=== PATIENT | male | born 1965 | race Caucasian/White ===

== ENCOUNTER 2020-05-21 10:03 | Outpatient (REF) | payer BC, SELFPAY ==
[2020-05-21 11:11] LABS: MANUAL DIFF FLAG NO
[2020-05-21 11:23] LABS: Basophils Percent Auto 0.5 % (0-2); Eosinophils Absolute Auto 0.2 X10*3/uL (0.0-0.4); Eosinophils Percent Auto 2.6 % (0-4); Hematocrit 43.8 % (42-52); Hemoglobin 14.8 g/dl (14.0-18.0); Imm Gran Abs Auto 0.05 X10*3/uL (0.00-0.03); Imm Gran Pct Auto 0.9 % (0.0-0.4); Lymphocytes Absolute Auto 1.6 X10*3/uL (1.2-4.9); Lymphocytes Percent Auto 26.8 % (20-40); Mean Corpuscular HGB Conc 33.8 g/dl (31.0-36.0); Mean Corpuscular Hemoglobin 32.3 pg (27.0-33.0); Mean Corpuscular Volume 95.6 fL (80-98); Monocytes Absolute Auto 0.6 X10*3/uL (0.1-1.2); Monocytes Percent Auto 10.8 % (2-11); Neutrophils Absolute Auto 3.4 X10*3/uL (2.0-8.3); Neutrophils Percent Auto 58.4 % (45-73); Platelet Count 189 X10*3/uL (160-400); Red Blood Count 4.58 X10*6/uL (4.60-5.80); White Blood Count 5.9 X10*3/uL (4.8-10.8)
[2020-05-21 11:44] LABS: Alanine Aminotransferase 42 U/L (0-40); Albumin Level 4.5 g/dL (3.5-5.0); Alkaline Phosphatase 77 U/L (39-117); Anion Gap 13 (12-20); Aspartate Amino Transferase 29 U/L (5-37); Bilirubin Total 0.3 mg/dL (0.0-1.0); Blood Urea Nitrogen 12 mg/dL (9-16); Calcium 9.8 mg/dL (8.4-10.2); Carbon Dioxide 28 mmol/L (22-29); Chloride 104 mmol/L (96-108); Cholesterol 228 mg/dL; Estimated Glomerular Filt Rate > 60; Glucose Fasting 83 mg/dL (60-99); HDL Cholesterol 45 mg/dL; LDL Cholesterol Calculated 141 mg/dl; Potassium 4.8 mmol/l (3.3-5.1); Sodium 140 mmol/L (135-145); Total Protein 7.2 g/dL (6.5-8.0); Triglycerides 214 mg/dL
== END 2020-05-21 10:04 | disposition home or self-care (01) ==
LOC: HO.LAB 10:03
PROVIDERS: Visit Provider Internal Medicine
DX: E78.00 Pure hypercholesterolemia, unspecified (principal)
CPT/HCPCS: 36415; 80053; 80061; 85025

== ENCOUNTER 2020-08-27 13:39 | Outpatient (REF) | payer BC, SELFPAY ==
--- NOTE | ~2020-08-27 | MR_ITS ---
EXAMINATION: MR LUMBAR SPINE WITHOUT CONTRAST CLINICAL INFORMATION: Chronic low back pain. No trauma. COMPARISON: Lumbar spine x-ray 01/19/2013. TECHNIQUE: MRI of the lumbar spine was obtained using routine sequences without contrast. FINDINGS: VERTEBRAL BODIES AND PARASPINAL STRUCTURES: Normal. There is normal lumbar lordosis. The vertebral heights and alignment is preserved normal. There are degenerative disc changes with loss of disc height at virtually all disc levels with preservation of the L4-L5 disc level. At T12-L1 disc level, there is mild disc bulge slightly more prominent in the right para midline region indenting the ventral thecal sac but without spinal canal stenosis. The neural foramina are patent bilaterally. L1-L2 disc level, there is mild diffuse bulge, more prominent in the right paramidline region. The neural foramina are patent bilaterally. At L2-L3 disc level, there is diffuse bulge without spinal stenosis. The neural foramina are mildly narrowed bilaterally. At L3-L4 disc level, there is a broad-based disc bulge with moderate-sized central disc herniation and inferior migration resulting in mayoiygg-fn-cjlsff canal stenosis. This results tortuosity and engorgement of the nerve roots and vessels cephalad. There is moderate bilateral narrowing of the neural foramina, slightly greater on the right from underlying moderate diffuse bulge and mild bilateral facet joint hypertrophy. At L4-L5 disc level, there is mild diffuse bulge flattening the ventral thecal sac. The neural foramina are mildly narrowed bilaterally. There is moderate bilateral facet joint hypertrophy. At L5-S1 disc level, there is minimal bulge without spinal canal stenosis. The neural foramina are mildly narrowed bilaterally. The bone marrow signal is normal. There are inferior endplate Schmorl's nodes L1 and T12 vertebrae. Conus medullaris terminates at L1 and appears normal in morphology. There are engorged vessels in the spinal canal superior to L3-L4 disc level. MR/MR lumbar spine wo con IMPRESSION: Broad-based diffuse bulge with moderate size central disc herniation and mild inferior migration resulting in xjemccuc-[id number] central canal stenosis at the L3-L4 disc level. There is moderate bilateral neural foraminal narrowing, greater on the right than the left. Degenerative disc bulges at the rest of the disc levels but no canal stenosis.
== END 2020-08-27 13:40 | disposition home or self-care (01) ==
LOC: HO.MRI 13:39
PROVIDERS: Visit Provider Internal Medicine
DX: M54.5 Low back pain (principal)
CPT/HCPCS: 72148

== ENCOUNTER 2021-09-25 09:59 | Outpatient (REF) | payer BC, SELFPAY ==
[2021-09-25 11:08] LABS: MANUAL DIFF FLAG NO
[2021-09-25 11:21] LABS: Basophils Absolute Auto 0.1 X10*3/uL (0.0-0.2); Basophils Percent Auto 0.8 % (0-2); Eosinophils Absolute Auto 0.2 X10*3/uL (0.0-0.4); Eosinophils Percent Auto 3.1 % (0-4); Hematocrit 43.6 % (42.0-52.0); Hemoglobin 14.3 g/dl (14.0-18.0); Imm Gran Abs Auto 0.05 X10*3/uL (0.00-0.03); Imm Gran Pct Auto 0.8 % (0.0-0.4); Lymphocytes Absolute Auto 1.6 X10*3/uL (1.2-4.9); Lymphocytes Percent Auto 24.8 % (20-40); Mean Corpuscular HGB Conc 32.8 g/dl (31.0-36.0); Mean Corpuscular Volume 94.6 fL (80.0-98.0); Mean Platelet Volume 11.6 fL (9.4-12.4); Monocytes Absolute Auto 0.7 X10*3/uL (0.1-1.2); Monocytes Percent Auto 10.4 % (2-11); Neutrophils Absolute Auto 3.9 x10*3/uL (2.0-8.3); Neutrophils Percent Auto 60.1 % (45-73); Platelet Count 196 X10*3/uL (160-400); Red Blood Count 4.61 X10*6/uL (4.60-5.80); Red Cell Distribution Width 12.5 % (11.0-16.0); White Blood Count 6.5 X10*3/uL (4.8-10.8)
[2021-09-25 11:30] LABS: Alanine Aminotransferase 40 U/L (0-40); Albumin Level 4.3 g/dL (3.5-5.0); Alkaline Phosphatase 81 U/L (39-117); Anion Gap 12 (12-20); Aspartate Amino Transferase 26 U/L (5-37); Bilirubin Total 0.7 mg/dL (0.0-1.0); Blood Urea Nitrogen 13 mg/dL (9-16); Calcium 9.6 mg/dL (8.4-10.2); Carbon Dioxide 27 mmol/L (22-29); Chloride 106 mmol/L (96-108); Cholesterol 228 mg/dL; Estimated Glomerular Filt Rate > 60; Glucose Fasting 97 mg/dL (60-99); HDL Cholesterol 44 mg/dL; LDL Cholesterol Calculated 154 mg/dl; Potassium 4.8 mmol/L (3.3-5.1); Sodium 140 mmol/L (135-145); Total Protein 7.1 g/dL (6.5-8.0); Triglycerides 153 mg/dL
[2021-09-25 11:57] LABS: PSA,Total (Free>4and<10) 0.45 ng/mL (0.00-4.00); Thyroid Stimulating Hormone 1.82 uIU/mL (0.32-4.0); Vitamin D 25-OH Total 31.5 ng/mL (>30)
== END 2021-09-25 10:00 | disposition home or self-care (01) ==
LOC: HO.HMGCLDS 09:59
PROVIDERS: PCP Internal Medicine; Visit Provider Internal Medicine
DX: Z00.00 Encounter for general adult medical examination without abnormal findings (principal); Z12.5 Encounter for screening for malignant neoplasm of prostate; E55.9 Vitamin D deficiency, unspecified; E78.00 Pure hypercholesterolemia, unspecified; Z91.09 Other allergy status, other than to drugs and biological substances
CPT/HCPCS: 36415; 80053; 80061; 82306; 84153; 84443; 85025

== ENCOUNTER 2022-11-15 09:22 | Outpatient (REF) | payer BC, SELFPAY ==
[2022-11-15 11:17] LABS: MANUAL DIFF FLAG NO
[2022-11-15 11:30] LABS: Basophils Percent Auto 0.6 % (0-2); Eosinophils Absolute Auto 0.2 X10*3/uL (0.0-0.4); Eosinophils Percent Auto 2.4 % (0-4); Hematocrit 45.2 % (42.0-52.0); Hemoglobin 14.9 g/dl (14.0-18.0); Imm Gran Abs Auto 0.03 X10*3/uL (0.00-0.03); Imm Gran Pct Auto 0.5 % (0.0-0.4); Lymphocytes Absolute Auto 1.8 X10*3/uL (1.2-4.9); Mean Corpuscular Hemoglobin 30.7 pg (27.0-33.0); Mean Platelet Volume 11.6 fL (9.4-12.4); Monocytes Absolute Auto 0.6 X10*3/uL (0.1-1.2); Monocytes Percent Auto 8.3 % (2-11); Neutrophils Absolute Auto 4.1 x10*3/uL (2.0-8.3); Neutrophils Percent Auto 61.2 % (45-73); Platelet Count 176 X10*3/uL (160-400); Red Blood Count 4.86 X10*6/uL (4.60-5.80); Red Cell Distribution Width 12.3 % (11.0-16.0); White Blood Count 6.7 X10*3/uL (4.8-10.8)
[2022-11-15 11:50] LABS: Alanine Aminotransferase 33 U/L (0-40); Albumin Level 4.5 g/dL (3.5-5.0); Alkaline Phosphatase 97 U/L (39-117); Anion Gap 13 (12-20); Aspartate Amino Transferase 28 U/L (5-37); Bilirubin Total 0.7 mg/dL (0.0-1.0); Blood Urea Nitrogen 17 mg/dL (9-16); Calcium 9.9 mg/dL (8.4-10.2); Carbon Dioxide 27 mmol/L (22-29); Chloride 105 mmol/L (96-108); Cholesterol 223 mg/dL; Estimated Glomerular Filt Rate > 60; Glucose Fasting 97 mg/dL (60-99); HDL Cholesterol 45 mg/dL; LDL Cholesterol Calculated 146 mg/dl; Potassium 4.6 mmol/L (3.3-5.1); Sodium 140 mmol/L (135-145); Total Protein 7.4 g/dL (6.5-8.0); Triglycerides 162 mg/dL
[2022-11-15 12:15] LABS: PSA,Total (Free>4and<10) 0.51 ng/mL (0.00-4.00); Vitamin D 25-OH Total 32.5 ng/mL (>30)
== END 2022-11-15 09:23 | disposition home or self-care (01) ==
LOC: HO.HMGCLDS 09:22
PROVIDERS: PCP Internal Medicine; Visit Provider Internal Medicine
DX: Z00.00 Encounter for general adult medical examination without abnormal findings (principal); Z12.5 Encounter for screening for malignant neoplasm of prostate; E55.9 Vitamin D deficiency, unspecified; E78.00 Pure hypercholesterolemia, unspecified; Z91.09 Other allergy status, other than to drugs and biological substances
CPT/HCPCS: 36415; 80053; 80061; 82306; 84153; 85025

== ENCOUNTER → 2022-12-02 10:17 | Outpatient (BNVA) | payer BC, SELFPAY | PROVIDERS: PCP Internal Medicine; Referring Provider Internal Medicine; Visit Provider Surgery ==

== ENCOUNTER 2023-04-12 06:07 | Day surgery (SDC) | payer BC, SELFPAY ==
[2023-04-08 10:23] VITALS: BMI 29.9
--- NOTE | 2023-04-11 10:27 | P.CONAN_ITS ---
Documented by User: Pati Alvarado NP 04/11/23 10:28 HPI - Anesthesia Eval Consult details Narrative: 57yo M for Hernia Repair Epigastricwith poss mesh PMFSH Active Problems Active Problems: All Active Problems (Updated 04/08/23 @ 10:22 by Claire Baldwin, OLU) Chronic back pain (Acute) Epigastric hernia (Acute) Past Medical History Medical History Hypercholesteremia History of diverticulitis Hx of heartburn Chronic back pain Epigastric hernia Surgical History Surgical History History of wisdom tooth extraction History of microdiscectomy History of vasectomy Social History Social History Alcohol intake: current Patient Tobacco Use Status: Never used Tobacco Are you DNR?: No Advance Directives: No Advance Directives Information Provided: Yes Nutrition Risks: No Nutritional Risk Meds Allergies Allergy/AdvReac Type Severity Reaction Status Date / Time amoxicillin Allergy Severe Rash Verified 04/12/23 06:17 cephalexin [From Keflex] Allergy Severe Rash Verified 04/12/23 06:17 ampicillin Allergy Rash Verified 04/12/23 06:17 Home Medications Medication Instructions Recorded Confirmed Last Taken Type atorvastatin 10 mg tablet 10 mg PO DAILY 12/02/22 04/08/23 Unknown History dexamethasone 4 mg tablet 4 mg PO BID 12/02/22 12/02/22 Unknown History fexofenadine 60 mg tablet 60 mg PO BID 12/02/22 04/08/23 Unknown History multivitamin 1 tab PO DAILY 12/02/22 04/08/23 Unknown History fluticasone propionate 50 1 spray intranasal DAILY 04/08/23 04/08/23 04/12/23 History mcg/actuation nasal spray,suspension Exam Exam Date and Time: April 11, 2023 1027 Height,Weight and Vital Signs: Height 5 ft 7.75 in Weight 88.451 kg Pertinent Lab Results Pertinent Lab Results: Laboratory Tests 11/15/22 09:35 WBC 6.7 Hgb 14.9 Hct 45.2 Plt Count 176 Sodium 140 Potassium 4.6 Chloride 105 Carbon Dioxide 27 BUN 17 H Creatinine 0.89 Assessment and Plan Assessment Anesthesia Assessment: Chart Reviewed Documented by User: Eulogio Dickey MD 04/12/23 07:13 [facility] Past Medical History Medical History Hypercholesteremia History of diverticulitis Hx of heartburn Chronic back pain Epigastric hernia Family History Family history of problems with anesthesia: No Surgical History Surgical History History of wisdom tooth extraction History of microdiscectomy History of vasectomy History of Problems with Anesthesia: No Social History Social History Alcohol intake: current Patient Tobacco Use Status: Never used Tobacco Are you DNR?: No Advance Directives: No Advance Directives Information Provided: Yes Nutrition Risks: No Nutritional Risk Meds Allergies Allergy/AdvReac Type Severity Reaction Status Date / Time amoxicillin Allergy Severe Rash Verified 04/12/23 06:17 cephalexin [From Keflex] Allergy Severe Rash Verified 04/12/23 06:17 ampicillin Allergy Rash Verified 04/12/23 06:17 Home Medications Medication Instructions Recorded Confirmed Last Taken Type atorvastatin 10 mg tablet 10 mg PO DAILY 12/02/22 04/08/23 Unknown History dexamethasone 4 mg tablet 4 mg PO BID 12/02/22 12/02/22 Unknown History fexofenadine 60 mg tablet 60 mg PO BID 12/02/22 04/08/23 Unknown History multivitamin 1 tab PO DAILY 12/02/22 04/08/23 Unknown History fluticasone propionate 50 1 spray intranasal DAILY 04/08/23 04/08/23 04/12/23 History mcg/actuation nasal spray,suspension Exam Airway Mallampati Class: III TM Dist: >3cm Neck ROM: Full Loose/Missing/Broken Teeth: No Heart: rrr+s1s2 Lungs: cta b/l Assessment and Plan Assessment Anesthesia Assessment: Anesthesia Plan Discussed Final Anesthetic Review Family History of Problems with Anesthesia: No History of Problems with Anesthesia: No NPO: Yes ASA Class: II Final Preanesthetic Review: No Changes in Pt Med Stat, Meds/Allgs Chart R evalexiad, Consent Obtained/Reviewed and Anes Risks/Benef Reviewed Patient Risk: Intermediate Procedure Risk: Intermediate Assessment/Block/Sedation in SS: Assess/Block/Sedation-SS Anesthetic Plan Anesthetic Plan: GA and Agree w/ Assess. and Plan Disposition: Standard PACU
[2023-04-12] MEDS: Lactated Ringers 1,000 ML 100 ML IVCONT (06:24)
[2023-04-12 06:34] VITALS: BP 141/99; PULSE 80; RESP 18; TEMP 36.6; O2SAT 96
--- NOTE | 2023-04-12 07:20 | MHC.SHP ---
Pre-Procedural Eval Section A Date of Service: 04/12/23 Section B Chief Complaint: Ventral hernia without obstruction or gangrene Details of Present Illness: has reducible mass in epigastric area Relevant Social History: None Present Medications: see Short Stay Collaborative assessment Medical History: Significant History (chronic back pain) Allergies: Allergies Allergy/AdvReac Type Severity Reaction Status Date / Time amoxicillin Allergy Severe Rash Verified 04/12/23 06:17 cephalexin [From Keflex] Allergy Severe Rash Verified 04/12/23 06:17 ampicillin Allergy Rash Verified 04/12/23 06:17 Review of Systems Sugical H&P ROS: Negative: Constitution, Cardiovascular, Respiratory, Neurological, Psychiatric, Hem-Onc, Allergic/Immunologic, Gastrointestinal, Genitourinary, Musculoskeletal, Integumentary, Endocrine and Eyes/Ears/Nose/Throat Exam Surgical H&P Exam: Normal: HEENT, Normal: Heart, Normal: Lungs, Normal: Extremities, Normal: Skin and Normal: Neurological and Significant Findings: Abdomen (reducible hernia, epigastric area) Plan Diagnosis/Plan: Unchanged I have reviewed the history and physical and performed a pertinent physical examination on my patient. No changes have occurred unless specified. Time Spent With Patient Time: Total time managing care of this patient today ____ minutes.
--- NOTE | 2023-04-12 07:55 | P.OP_ITS ---
Operative Note Operative Note Date of Service: 04/12/23 Narrative: Preop diagnosis: Epigastric hernia Postop diagnosis: Epigastric hernia, 3 cm in diameter Procedure: Repair of epigastric hernia with medium-sized Ventralex mesh Surgeon: Markel Bearden MD insurance claims assistant: MIRLANDE Brady The patient is a 57-year-old male, with a reducible epigastric hernia. He understood the technique of repair with mesh. He was aware of the risks, benefits, and alternatives. He was brought to the operating room. He was placed supine under general anesthesia via laryngeal mask airway. The abdomen was prepped and draped in the usual sterile fashion. A surgical time-out was done. The patient received cefazolin 2 g IV preoperatively. It is noted that he did stated he had a rash on his palm when he got Keflex at age of 11. I infiltrated the planned line of incision with lidocaine 1%. I made the incision long digitally during the hernia defect using a blade 15. This carried down with electrocautery through the full-thickness of the skin and subcutaneous fat until I visualized hernia contents. I sharply dissected hernia contents which appeared to be omental fat using Metzenbaum scissors off of the rest of the subcutaneous layer down to the fascial defect. I the hernia contents for the fascial defect sharply with Metzenbaum scissors. I was able to reduce the entire hernia contents. The margins were clear around the fascial defect. The fascial defect measured about 3 cm in diameter. I used a medium- sized Ventralex mesh to reinforce the defect. This flattened and I secured the Prolene straps of the mesh to the fascial edge on both sides with Prolene 2 sutures. I closed the fascial defect with a [id number] Maxon 1 stitch. I irrigated and reapposed the subcutaneous layer with Polysorb 3-0 interrupted sutures. Skin closure was achieved with pulse of 4-0 subcuticular running sutures. Infiltrated the area with Marcaine 0.5% for postop analgesia. Dressings were applied. The procedure was completed. The patient tolerated procedure well. There were no immediate complications. Initial and final counts of sponges and instruments were correct. Estimated blood loss was about 5 cc. The patient was extubated without difficulty and transferred to the recovery room with stable vital signs
[2023-04-12 08:10] VITALS: BP 151/99; PULSE 84; RESP 16; TEMP 36.6; O2SAT 98
[2023-04-12 08:15] VITALS: BP 139/100; PULSE 77; RESP 16; O2SAT 92
[2023-04-12 08:20] VITALS: BP 144/100; PULSE 71; RESP 16; O2SAT 92
[2023-04-12 08:25] VITALS: BP 143/100; PULSE 75; RESP 16; TEMP 36.6; O2SAT 95
[2023-04-12] MEDS: oxyCODONE HCl Immed Release 5 MG TABLET PO (08:32)
[2023-04-12] MEDS: Acetaminophen 325 MG TABLET 650 MG PO (08:32)
[2023-04-12 08:40] VITALS: BP 151/100; PULSE 74; RESP 16; TEMP 36.3; O2SAT 97
== END 2023-04-12 09:59 | disposition home or self-care (01) ==
PROVIDERS: PCP Internal Medicine; Visit Provider Surgery
PROC: (CPT 49593; principal; 2023-04-12 07:30)
DX: K43.9 Ventral hernia without obstruction or gangrene (principal); Z87.19 Personal history of other diseases of the digestive system; E78.00 Pure hypercholesterolemia, unspecified; G89.29 Other chronic pain; M54.9 Dorsalgia, unspecified; Z79.51 Long term (current) use of inhaled steroids; Z79.899 Other long term (current) drug therapy; Z88.1 Allergy status to other antibiotic agents; Z98.52 Vasectomy status; Z98.890 Other specified postprocedural states
CPT/HCPCS: 49593; C1781; J0690; J1100; J1170; J2250; J2405; J2795

== ENCOUNTER → 2023-04-12 06:07 | Outpatient (BNV) | payer BC, SELFPAY | PROVIDERS: PCP Internal Medicine; Visit Provider Surgery | DX: K43.9 Ventral hernia without obstruction or gangrene (principal) | CPT/HCPCS: 49593 ==

== ENCOUNTER 2023-04-25 10:36 | Outpatient (AMB) | payer BC, SELFPAY ==
--- NOTE | 2023-04-25 10:38 | MHC.OFFVIS ---
Intake Vital Signs 04/25/23 10:46 Weight 190 lb BP 136/94 H Blood Pressure Location Rt brachial Position Sitting Pulse 89 Intake Visit Reasons: S/P epigastric hernia repair Intake Note: This patient presents for a post-op assessment status post epigastric hernia repair. Patient c/o; reports no changes or complaints at this time. Phlebotomy Lab Assistant Required: No Accompanied by: Self / Same As Patient Allergies amoxicillin Allergy (Severe, Verified 04/25/23 10:46) Rash cephalexin [From Keflex] Allergy (Severe, Verified 04/25/23 10:46) Rash ampicillin Allergy (Verified 04/25/23 10:46) Rash HPI S/P epigastric hernia repair HPI Details He underwent repair of an epigastric hernia with Ventralex mesh last 04/12/2023. He tolerated procedure well. He currently denies significant complaints. [facility] Medical History Hypercholesteremia History of diverticulitis Hx of heartburn Chronic back pain Epigastric hernia Surgical History History of wisdom tooth extraction History of microdiscectomy History of vasectomy Social History Alcohol intake: current Patient Tobacco Use Status: Never used Tobacco Review of Systems Const Denies chills and Denies fever(s) Card Denies chest pain, Denies dyspnea and Denies dyspnea on exertion Resp Denies cough, Denies dyspnea and Denies dyspnea on exertion GI Denies hematochezia and Denies change in bowel habits Denies hematuria and Denies difficulty urinating Musc Denies back pain and Denies limited range of motion Neuro Denies focal weakness and Denies convulsions Psych Denies depression and Denies mood swings Physical Exam Const General: comfortable and no acute distress Resp Effort & Inspection: normal respiratory effort GI Other: Hernia repair site incision is clean and dry, well healing, repair is intact Palpation (GI): Soft to palpation, not firm and nontender Assessment & Plan Assessment & Plan (1) Epigastric hernia: Code(s): K43.9 - Ventral hernia without obstruction or gangrene Plan: status post repair with Ventralex mesh. He is doing well postoperatively. The repair site is well healed and intact. I advised him to avoid any lifting more than 20 lb for at least 3 more weeks. He can otherwise follow up on a p.r.n. basis. Coding Level of Care Code Global (05965) Diagnoses Epigastric hernia K43.9
[2023-04-25 10:46] VITALS: BP 136/94; PULSE 89
== END 2023-04-25 10:54 | disposition home or self-care (01) ==
PROVIDERS: PCP Internal Medicine; Visit Provider Surgery
DX: K43.9 Ventral hernia without obstruction or gangrene (principal)
CPT/HCPCS: 99212

== ENCOUNTER → 2023-04-25 10:36 | Outpatient (BNVA) | payer BC, SELFPAY | PROVIDERS: PCP Internal Medicine; Visit Provider Surgery ==

== ENCOUNTER 2023-05-16 08:02 | Outpatient (REF) | payer BC, SELFPAY ==
[2023-05-16 09:58] LABS: Alanine Aminotransferase 38 U/L (0-40); Albumin Level 4.5 g/dL (3.5-5.0); Alkaline Phosphatase 90 U/L (39-117); Anion Gap 15 (12-20); Aspartate Amino Transferase 27 U/L (5-37); Bilirubin Total 0.6 mg/dL (0.0-1.0); Blood Urea Nitrogen 16 mg/dL (9-16); Calcium 9.8 mg/dL (8.4-10.2); Carbon Dioxide 25 mmol/L (22-29); Chloride 108 mmol/L (96-108); Cholesterol 169 mg/dL (<200); Estimated Glomerular Filt Rate > 60; Glucose Fasting 96 mg/dL (60-99); HDL Cholesterol 46 mg/dL (>40); LDL Cholesterol Calculated 98 mg/dL (<100); Potassium 4.5 mmol/L (3.3-5.1); Sodium 143 mmol/L (135-145); Total Protein 7.2 g/dL (6.5-8.0); Triglycerides 127 mg/dL (<150)
== END 2023-05-16 08:03 | disposition home or self-care (01) ==
LOC: HO.LAB 08:02
PROVIDERS: PCP Internal Medicine; Visit Provider Internal Medicine
DX: E78.00 Pure hypercholesterolemia, unspecified (principal)
CPT/HCPCS: 36415; 80053; 80061

== ENCOUNTER 2023-07-01 16:02 | Outpatient (REF) | payer BC, SELFPAY ==
[2023-07-01 16:15] LABS: MANUAL DIFF FLAG NO
[2023-07-01 16:27] LABS: Basophils Absolute Auto 0.1 X10*3/uL (0.0-0.2); Basophils Percent Auto 0.7 % (0-2); Eosinophils Absolute Auto 0.3 X10*3/uL (0.0-0.4); Eosinophils Percent Auto 2.5 % (0-4); Hemoglobin 13.7 g/dl (14.0-18.0); Imm Gran Abs Auto 0.05 X10*3/uL (0.00-0.03); Imm Gran Pct Auto 0.5 % (0.0-0.4); Lymphocytes Percent Auto 19.9 % (20-40); Mean Corpuscular HGB Conc 33.4 g/dl (31.0-36.0); Mean Corpuscular Volume 92.8 fL (80.0-98.0); Mean Platelet Volume 10.9 fL (9.4-12.4); Monocytes Absolute Auto 0.8 X10*3/uL (0.1-1.2); Monocytes Percent Auto 8.5 % (2-11); Neutrophils Absolute Auto 6.7 x10*3/uL (2.0-8.3); Neutrophils Percent Auto 67.9 % (45-73); Platelet Count 231 X10*3/uL (160-400); Red Blood Count 4.42 X10*6/uL (4.60-5.80); Red Cell Distribution Width 12.4 % (11.0-16.0); White Blood Count 9.9 X10*3/uL (4.8-10.8)
[2023-07-01 16:59] LABS: Alanine Aminotransferase 36 U/L (0-40); Albumin Level 4.5 g/dL (3.5-5.0); Alkaline Phosphatase 101 U/L (39-117); Anion Gap 14 (12-20); Aspartate Amino Transferase 25 U/L (5-37); Bilirubin Direct 0.1 mg/dL (0.0-0.5); Bilirubin Total 0.4 mg/dL (0.0-1.0); Blood Urea Nitrogen 18 mg/dL (9-16); C Reactive Protein 0.12 mg/dL (< or = 0.50); Calcium 10.1 mg/dL (8.4-10.2); Carbon Dioxide 27 mmol/L (22-29); Chloride 107 mmol/L (96-108); Estimated Glomerular Filt Rate > 60; Glucose Random 91 mg/dL (60-115); Potassium 4.5 mmol/L (3.3-5.1); Sodium 143 mmol/L (135-145); Total Protein 7.3 g/dL (6.5-8.0)
[2023-07-01 17:11] LABS: Erythrocyte Sedimentation Rate 7 MM/HR (0-15)
== END 2023-07-01 16:03 | disposition home or self-care (01) ==
LOC: HO.LAB 16:02
PROVIDERS: PCP Internal Medicine; Visit Provider Internal Medicine
DX: D72.829 Elevated white blood cell count, unspecified (principal)
CPT/HCPCS: 36415; 80048; 80076; 85025; 85652; 86140

== ENCOUNTER 2023-09-28 10:27 | Outpatient (REF) | payer BC, SELFPAY ==
--- NOTE | ~2023-09-28 | XR_ITS ---
EXAMINATION: XR CHEST 2 VIEWS CLINICAL INFORMATION: Bronchitis. COMPARISON: Chest radiographs dated 08/24/2019. TECHNIQUE: Frontal and lateral views of the chest were obtained. FINDINGS: The heart, great vessels, pulmonary vasculature and mediastinum are normal. The lungs show no focal infiltrate, effusion or pneumothorax. There is no acute osseous abnormality. There is multi-level thoracic spondylosis. XR/XR chest 2V IMPRESSION: No active cardiopulmonary disease.
[2023-09-28 10:45] LABS: MANUAL DIFF FLAG NO
[2023-09-28 11:04] LABS: Basophils Absolute Auto 0.1 X10*3/uL (0.0-0.2); Basophils Percent Auto 0.7 % (0-2); Eosinophils Absolute Auto 0.2 X10*3/uL (0.0-0.4); Hematocrit 43.8 % (42.0-52.0); Hemoglobin 14.4 g/dl (14.0-18.0); Imm Gran Abs Auto 0.07 X10*3/uL (0.00-0.03); Imm Gran Pct Auto 0.9 % (0.0-0.4); Lymphocytes Absolute Auto 1.8 X10*3/uL (1.2-4.9); Lymphocytes Percent Auto 23.9 % (20-40); Mean Corpuscular HGB Conc 32.9 g/dl (31.0-36.0); Mean Corpuscular Hemoglobin 30.7 pg (27.0-33.0); Mean Corpuscular Volume 93.4 fL (80.0-98.0); Mean Platelet Volume 11.1 fL (9.4-12.4); Monocytes Absolute Auto 0.7 X10*3/uL (0.1-1.2); Monocytes Percent Auto 9.3 % (2-11); Neutrophils Absolute Auto 4.8 x10*3/uL (2.0-8.3); Neutrophils Percent Auto 62.2 % (45-73); Platelet Count 242 X10*3/uL (160-400); Red Blood Count 4.69 X10*6/uL (4.60-5.80); Red Cell Distribution Width 12.4 % (11.0-16.0); White Blood Count 7.7 X10*3/uL (4.8-10.8)
[2023-09-28 11:51] LABS: Alanine Aminotransferase 32 U/L (0-40); Albumin Level 4.5 g/dL (3.5-5.0); Alkaline Phosphatase 109 U/L (39-117); Anion Gap 10 (12-20); Aspartate Amino Transferase 24 U/L (5-37); Bilirubin Direct 0.1 mg/dL (0.0-0.5); Bilirubin Total 0.4 mg/dL (0.0-1.0); Blood Urea Nitrogen 16 mg/dL (9-16); C Reactive Protein < 0.10 mg/dL (< or = 0.50); Calcium 9.8 mg/dL (8.4-10.2); Carbon Dioxide 28 mmol/L (22-29); Chloride 108 mmol/L (96-108); Estimated Glomerular Filt Rate > 60; Glucose Random 98 mg/dL (60-115); Potassium 4.6 mmol/L (3.3-5.1); Sodium 141 mmol/L (135-145); Total Protein 7.5 g/dL (6.5-8.0)
== END 2023-09-28 10:28 | disposition home or self-care (01) ==
LOC: HO.LAB 10:27
PROVIDERS: PCP Internal Medicine; Visit Provider Internal Medicine
DX: J40 Bronchitis, not specified as acute or chronic (principal)
CPT/HCPCS: 36415; 71046; 80048; 80076; 85025; 86140

== ENCOUNTER 2024-05-21 08:50 | Outpatient (REF) | payer BC, SELFPAY ==
[2024-05-21 09:08] LABS: MANUAL DIFF FLAG NO
[2024-05-21 09:32] LABS: Basophils Absolute Auto 0.1 X10*3/uL (0.0-0.2); Basophils Percent Auto 0.7 % (0-2); Eosinophils Absolute Auto 0.2 X10*3/uL (0.0-0.4); Hematocrit 43.2 % (42.0-52.0); Hemoglobin 14.5 g/dl (14.0-18.0); Imm Gran Abs Auto 0.03 X10*3/uL (0.00-0.03); Imm Gran Pct Auto 0.4 % (0.0-0.4); Lymphocytes Absolute Auto 1.9 X10*3/uL (1.2-4.9); Lymphocytes Percent Auto 25.8 % (20-40); Mean Corpuscular HGB Conc 33.6 g/dl (31.0-36.0); Mean Corpuscular Hemoglobin 31.3 pg (27.0-33.0); Mean Corpuscular Volume 93.1 fL (80.0-98.0); Mean Platelet Volume 11.2 fL (9.4-12.4); Monocytes Absolute Auto 0.7 X10*3/uL (0.1-1.2); Monocytes Percent Auto 9.2 % (2-11); Neutrophils Absolute Auto 4.5 x10*3/uL (2.0-8.3); Neutrophils Percent Auto 60.9 % (45-73); Platelet Count 199 X10*3/uL (160-400); Red Blood Count 4.64 X10*6/uL (4.60-5.80); Red Cell Distribution Width 12.3 % (11.0-16.0); White Blood Count 7.4 X10*3/uL (4.8-10.8)
[2024-05-21 10:08] LABS: Alanine Aminotransferase 49 U/L (0-40); Albumin Level 4.6 g/dL (3.5-5.0); Alkaline Phosphatase 96 U/L (39-117); Anion Gap 11 (12-20); Aspartate Amino Transferase 43 U/L (5-37); Bilirubin Total 0.6 mg/dL (0.0-1.0); Blood Urea Nitrogen 14 mg/dL (9-16); Calcium 9.3 mg/dL (8.4-10.2); Carbon Dioxide 26 mmol/L (22-29); Chloride 106 mmol/L (96-108); Cholesterol 167 mg/dL (<200); Estimated Glomerular Filt Rate > 60; Glucose Fasting 95 mg/dL (60-99); HDL Cholesterol 46 mg/dL (>40); LDL Cholesterol Calculated 82 mg/dL (<100); Potassium 4.3 mmol/L (3.3-5.1); Sodium 139 mmol/L (135-145); Total Protein 7.4 g/dL (6.5-8.0); Triglycerides 196 mg/dL (<150)
[2024-05-21 10:19] LABS: PSA,Total (Free>4and<10) 0.51 ng/mL (0.00-4.00)
[2024-05-21 10:23] LABS: Thyroid Stimulating Hormone 3.03 uIU/mL (0.32-4.0); Vitamin D 25-OH Total 40.4 ng/mL (>30)
--- OUTSIDE RECORDS SUMMARY | 2024-05-23 13:34 | XMS_ITS ---
Author Organization Gavin Dawn DO, FACP Address [address], [place] [id number] Care Team Providers Care Die Trouble Shooter Name Role Phone Gavin Dawn Primary Care Provider REASON FOR VISIT physical Encounters Encounter Location Date Provider Diagnosis Gavin Dawn DO, [facility] [address] [place] [phone] 11/15/2023 Gavin Dawn PLAN OF TREATMENT Next Appt Details Provider Name:Gavin figueroa, 11/27/2024 03:00:00 PM, [address] [place], [place], [phone],
--- OUTSIDE RECORDS SUMMARY | 2024-05-23 13:34 | XMS_ITS ---
Author Organization Gavin Dawn DO, FACP Address [address] [place] [address] [place] [id number] Care Team Providers Care Pipe Smoking Machine Operator Name Role Phone Gavin Dawn Primary Care Provider ALLERGIES Allergen (clinical drug ingredient) Drug/Non Drug Allergy documented on EMR Reaction Allergy Type Onset Date Status cephalexin Cephalexin rash Drug Allergy Activ e ampicillin Ampicillin rash Drug Allergy Activ e amoxicillin Amoxicillin rash Drug Allergy Act charles REASON FOR REFERRAL Reason Tinnitus Environment al allergies Diagnosis 1 Environmental allerg ies (Z91.09) Referral Organization Gavin Agrawal, FACP Referring Provider First Name Gavin Referring Provider Last Name Nereyda Referring Provider Speciality Internal M edicine Referred Provider Royal Sheffield Referred Provider Specialty Otology, Lar yngology, Rhinology General Notes Kaylen Grimaldo 024 09:11:20 AM EDT > patient notified he must wildfire prevention specialist to schedule appointment. Referral Priority Routine REASON FOR VISIT annual visit, Follow up hypercholesterolemia MEDICATIONS Medication SIG (Take, Route, Frequency, Duration) Notes Start Date End Date Status Atorvastatin Calcium 10 MG 1 tablet Oral ly Once a day Active Multivitamins - 1 capsule Orally Onc e a day Active Fexofenadine HCl 180 MG 1 tablet Orally Once a day Active Fluticasone Propionate 50 MCG/ACT 1 spray in each nostril Nasally Once a day Active SOCIAL HISTORY Tobacco Use: Social History Observation Description Date Details (start date - stop date) Former Smoker NA - NA Sex Assigned At : Social History Observation Description Sex Assigned At Unknown Tobacco Use/Smoking Question Answer Notes Patient is a former smoker How long has it been since y ou last smoked? > 10 years Additional Findings: Tobacco Non-User Fo rmer smoker, currently using no form of tobacco Alcohol Screen Question Answer Notes Did you have a drink contain ing alcohol in the past year? Yes How often did you have a dri nk containing alcohol in the past year? 4 or more times a week (4 points) How many drinks did you have on a typical day when you were drinking in the past year? 1 or 2 drinks (0 point) How often did you have 6 or more drinks on one occasion in the past year? Never (0 point) Points 4 Interpretation Positive VITAL SIGNS BMI 30.33 kg/m2 11/23/2023 Blood pressure systolic 120 mm Hg 11/23/19 24 Blood pressure diastolic 70 mm Hg 024 Height 67.75 in 11/23/2023 Weight 198 lbs 11/23/2023 Encounters Encounter Location Date Provider Diagnosis Gavin Dawn DO, [address] [phone] 11/23/2023 Gavin Dawn Encounter for genera l adult medical examination without abnormal findings Z00.00 ; Hypercholesterolemia E78.00 ; Vitamin D deficiency E55.9 and Environmental allergies Z91.09 ASSESSMENTS Encounter Date Diagnosis Assessment Notes Treatment Notes Treatment Clinical Notes 11/23/2023 Encounter for genera l adult medical examination without abnormal findings (ICD-10 - Z00.00) Advise Prevnar 20 vaccination 11/23/2023 Hypercholesterolemia (ICD-10 - E78.00) 11/23/2023 Vitamin D deficiency (ICD-10 - E55.9) 11/23/2023 Environmental allerg ies (ICD-10 - Z91.09) PLAN OF TREATMENT Medication Medication Name Sig Start Date Stop Date Notes Atorvastatin Calcium 10 MG 1 tablet Orally Once a day Multivitamins - 1 capsule Orally Onc e a day Fexofenadine HCl 180 MG 1 tablet Orally Once a day Fluticasone Propionate 50 MCG/ACT 1 spray in each nostril Nasally Once a day Treatment Notes Assessment Notes Encounter for general adult medical examination without abnormal findings Advise Prevnar 20 vaccination Pending Test Test Name Order Date CBC w DIFF 11/23/2023 LIPOPROTEIN FRACTIONATION (LIPID PANEL) 11/23/2023 PROFILE, FASTING 11/23/2023 TSH (THYROID STIMULATING HORMONE) 2023 VITAMIN D 25-OH TOTAL 11/23/2023 PSA,Total (Free>4and<10) 11/23/2023 Referrals Referral Date Details Tinnitus Environment al allergies, Royal Eliu [place] Next Appt Details Follow Up: 6 Months, Reason: follow up visit,review lab work Provider Name:Gavin Callejas [place], 11/27/2024 03:00:00 PM, [address] [place] [address], [phone], Progress Notes * Examination Category Sub-Category Detail Notes General Examination GENERAL APPEARANCE: well dev eloped, well nourished, in no acute distress HEAD: normocephalic, atrau matic EYES: pupils equal, round, reactive to light and accommodation, sclera non-icteric EARS: auditory canal clear , tympanic membrane intact, clear, light reflex present, Isaac test lateralizes to the right THROAT: clear NECK/THYROID: neck supple, full ra nge of motion, no cervical lymphadenopathy, thyroid normal, no carotid bruit HEART: regular rate and rhy thm, S1, S2 normal, no murmurs CHEST: normal LUNGS: clear to auscultatio n bilaterally ABDOMEN: soft, nontender, non distended, bowel sounds present NEUROLOGIC: nonfocal, motor stre ngth normal upper and lower extremities, sensory exam intact SKIN: warm and dry EXTREMITIES: no edema PERIPHERAL PULSES: 2+ dorsalis pedis, 2 + posterior tibial MALE GENITOURINARY no hernia, no penile lesions or discharge, no testicular mass, testes descended bilaterally PSYCH: alert, oriented, cog nitive function intact, cooperative with exam, good eye contact, judgement and insight good ORAL CAVITY: mucosa moist History and Physical Notes * HPI (History of Present Illness) Category Sub-Category Detail Notes Depression Screening PHQ-9 Little inte rest or pleasure in doing things: Not at all Feeling down, depressed, or hopeless: No t at all Trouble falling or staying asleep, or sl eeping too much: Not at all Feeling tired or having little energy: N ot at all Poor appetite or overeating: Not at all Feeling bad about yourself o r that you are a failure, or have let yourself or your family down: Not at all Trouble concentrating on thi ngs, such as reading the newspaper or watching television: Not at all Moving or speaking so slowly that other people could have noticed; or the opposite, being so fidgety or restless that you have been moving around a lot more than usual: Not at all Thoughts that you would be b bharti off or of hurting yourself in some way: Not at all Total Score: 0 Interpretation and Intervention Depression Dario zheng Findings: Negative Follow-Up for Depression: : Review of PH Q-9 found negative result; no follow-up needed Fall Risk Fall History Have you had two or more fal ls in the past year?: No Have you had any falls with injury in th e past year?: No Fall Risk Assessment:: No falls in the p ast year Communication Needs PCMH Communication Needs - PCM [place] aring Impairment?: No Vision Impairment?: Yes wears glasses Cognitive Impairment?: No SDOH Questions SDOH Questions In the past year have you been worried about losing your housing?: No In the past year have you or any family members you live with been unable to get any of the following when it was really needed? Check all that apply:: None Consultation Request Notes Referral Date Referring Provider Referred Provider Not lilian 11/23/2023 Gavin Dawn Ram Gopal Tinnit Environmental allergies
--- OUTSIDE RECORDS SUMMARY | 2024-05-23 13:34 | XMS_ITS | Patient Health Record ---
Author Organization Gavin Dawn DO, [facility] Address [address] [place] [address] [place] [id number] Care Team Providers Care Economics Consultant Name Role Phone Gavin Dawn Primary Care Provider ALLERGIES Allergen (clinical drug ingredient) Drug/Non Drug Allergy documented on EMR Reaction Allergy Type Onset Date Status cephalexin Cephalexin rash Drug Allergy Activ e ampicillin Ampicillin rash Drug Allergy Activ e amoxicillin Amoxicillin rash Drug Allergy Act charles RESULTS Component Value Reference Range Notes Complete Blood Count Auto Di ff Reviewed date:07/02/2023 04:42:45 AM Interpretation:Abnormal Performing Lab:[facility], [address] [place] [phone] Notes/Report: White Blood Count 9.9 4.8-10.8 X10*3/uL Red Blood Count 4.42 4.60-5.80 X10*6/uL Hemoglobin 13.7 14.0-18.0 g/dl Hematocrit 41.0 42.0-52.0 % Mean Corpuscular Volume 92.8 80.0-98.0 fL Mean Corpuscular Hemoglobin 31.0 27.0-33.0 pg Mean Corpuscular HGB Conc 33.4 31.0-36.0 g/dl Red Cell Distribution Width 12.4 11.0-16.0 % Platelet Count 231 160-400 X10*3/uL Mean Platelet Volume 10.9 9.4-12.4 fL Neutrophils Percent Auto 67.9 45-73 % Imm Gran Pct Auto 0.5 0.0-0.4 % Lymphocytes Percent Auto 19.9 20-40 % Monocytes Percent Auto 8.5 2-11 % Eosinophils Percent Auto 2.5 0-4 % Basophils Percent Auto 0.7 0-2 % NRBC Pct Auto 0.0 0.0-0.2 /100WBC Neutrophils Absolute Auto 6.7 2.0-8.3 x10*3/u L Imm Gran Abs Auto 0.05 0.00-0.03 X10*3/uL Lymphocytes Absolute Auto 2.0 1.2-4.9 X10*3/u L Monocytes Absolute Auto 0.8 0.1-1.2 X10*3/uL Eosinophils Absolute Auto 0.3 0.0-0.4 X10*3/u L Basophils Absolute Auto 0.1 0.0-0.2 X10*3/uL NRBC Abs Auto 0.000 0.0-0.012 X10*3/uL Erythrocyte Sedimentation Ra te Reviewed date:07/02/2023 04:38:33 AM Interpretation:Normal Performing Lab:[address] [phone] Notes/Report: Erythrocyte Sedimentation Rate 7 0-15 MM/HR Patients with polycythemia and many hemoglobin abnormalities may have depressed sed rates whereas patients with anemia may have elevated sed rates. Liver Panel Reviewed date:07/02/2023 04:38:33 AM Interpretation:Normal Performing Lab:[address] [phone] Notes/Report: Bilirubin Total 0.4 0.0-1.0 mg/dL Bilirubin Direct 0.1 0.0-0.5 mg/dL Aspartate Amino Transferase 25 5-37 U/L Alanine Aminotransferase 36 0-40 U/L Total Protein 7.3 6.5-8.0 g/dL Albumin Level 4.5 3.5-5.0 g/dL Alkaline Phosphatase 101 39-117 U/L Basic Metabolic Panel Reviewed date:07/02/2023 04:38:33 AM Interpretation:Normal Performing Lab:[address] [phone] Notes/Report: Sodium 143 135-145 mmol/L Potassium 4.5 3.3-5.1 mmol/L Chloride 107 96-108 mmol/L Carbon Dioxide 27 22-29 mmol/L Anion Gap 14 12-20 Blood Urea Nitrogen 18 9-16 mg/dL Creatinine 1.03 0.5-1.4 mg/dL Estimated Glomerular Filt Rate > 60 NOTE: For -Vincentian individuals, multiply the result by 1.210. Chronic Kidney Disease: Estimated GFR < 60 mL/min/1.73m2 Severe Kidney Disease: Estimated GFR < 15 mL/min/1.73m2 Glucose Random 91 60-115 mg/dL Calcium 10.1 8.4-10.2 mg/dL C Reactive Protein Reviewed date:07/02/2023 04:38:33 AM Interpretation:Normal Performing Lab:[facility], [address] [place] [phone] Notes/Report: C Reactive Protein 0.12 < or = 0.50 mg/dL Complete Blood Count Auto Di ff Reviewed date:09/28/2023 11:10:19 AM Interpretation:Normal Performing Lab:[facility], [address] [place] [phone] Notes/Report: White Blood Count 7.7 4.8-10.8 X10*3/uL Red Blood Count 4.69 4.60-5.80 X10*6/uL Hemoglobin 14.4 14.0-18.0 g/dl Hematocrit 43.8 42.0-52.0 % Mean Corpuscular Volume 93.4 80.0-98.0 fL Mean Corpuscular Hemoglobin 30.7 27.0-33.0 pg Mean Corpuscular HGB Conc 32.9 31.0-36.0 g/dl Red Cell Distribution Width 12.4 11.0-16.0 % Platelet Count 242 160-400 X10*3/uL Mean Platelet Volume 11.1 9.4-12.4 fL Neutrophils Percent Auto 62.2 45-73 % Imm Gran Pct Auto 0.9 0.0-0.4 % Lymphocytes Percent Auto 23.9 20-40 % Monocytes Percent Auto 9.3 2-11 % Eosinophils Percent Auto 3.0 0-4 % Basophils Percent Auto 0.7 0-2 % NRBC Pct Auto 0.0 0.0-0.2 /100WBC Neutrophils Absolute Auto 4.8 2.0-8.3 x10*3/u L Imm Gran Abs Auto 0.07 0.00-0.03 X10*3/uL Lymphocytes Absolute Auto 1.8 1.2-4.9 X10*3/u L Monocytes Absolute Auto 0.7 0.1-1.2 X10*3/uL Eosinophils Absolute Auto 0.2 0.0-0.4 X10*3/u L Basophils Absolute Auto 0.1 0.0-0.2 X10*3/uL NRBC Abs Auto 0.000 0.0-0.012 X10*3/uL Complete Blood Count Auto Di ff Reviewed date:05/21/2024 10:10:34 AM Interpretation:Normal Performing Lab:[facility], [address] [place] [phone] Notes/Report: White Blood Count 7.4 4.8-10.8 X10*3/uL Red Blood Count 4.64 4.60-5.80 X10*6/uL Hemoglobin 14.5 14.0-18.0 g/dl Hematocrit 43.2 42.0-52.0 % Mean Corpuscular Volume 93.1 80.0-98.0 fL Mean Corpuscular Hemoglobin 31.3 27.0-33.0 pg Mean Corpuscular HGB Conc 33.6 31.0-36.0 g/dl Red Cell Distribution Width 12.3 11.0-16.0 % Platelet Count 199 160-400 X10*3/uL Mean Platelet Volume 11.2 9.4-12.4 fL Neutrophils Percent Auto 60.9 45-73 % Imm Gran Pct Auto 0.4 0.0-0.4 % Lymphocytes Percent Auto 25.8 20-40 % Monocytes Percent Auto 9.2 2-11 % Eosinophils Percent Auto 3.0 0-4 % Basophils Percent Auto 0.7 0-2 % NRBC Pct Auto 0.0 0.0-0.2 /100WBC Neutrophils Absolute Auto 4.5 2.0-8.3 x10*3/u L Imm Gran Abs Auto 0.03 0.00-0.03 X10*3/uL Lymphocytes Absolute Auto 1.9 1.2-4.9 X10*3/u L Monocytes Absolute Auto 0.7 0.1-1.2 X10*3/uL Eosinophils Absolute Auto 0.2 0.0-0.4 X10*3/u L Basophils Absolute Auto 0.1 0.0-0.2 X10*3/uL NRBC Abs Auto 0.000 0.0-0.012 X10*3/uL Comprehensive [place]. Panel Fa st Reviewed date:05/21/2024 10:33:46 AM Interpretation:Abnormal Performing Lab:[facility], [address] [place] [phone] Notes/Report: Sodium 139 135-145 mmol/L Potassium 4.3 3.3-5.1 mmol/L Chloride 106 96-108 mmol/L Carbon Dioxide 26 22-29 mmol/L Anion Gap 11 12-20 Blood Urea Nitrogen 14 9-16 mg/dL Creatinine 0.82 0.5-1.4 mg/dL Estimated Glomerular Filt Rate > 60 Chronic Kidney Disease: Estimated GFR < 60 mL/min/1.73m2 Severe Kidney Disease: Estimated GFR < 15 mL/min/1.73m2 Glucose Fasting 95 60-99 mg/dL Calcium 9.3 8.4-10.2 mg/dL Bilirubin Total 0.6 0.0-1.0 mg/dL Aspartate Amino Transferase 43 5-37 U/L Alanine Aminotransferase 49 0-40 U/L Total Protein 7.4 6.5-8.0 g/dL Albumin Level 4.6 3.5-5.0 g/dL Alkaline Phosphatase 96 39-117 U/L Lipid Panel Reviewed date:05/21/2024 10:33:46 AM Interpretation:Abnormal Performing Lab:[facility], [address] [place] [phone] Notes/Report: Triglycerides 196 <150 mg/dL Desirable Triglyceride: less than 150 mg/dL Borderline High Triglyceride 150-199 mg/dL High Triglyceride: 200-499 mg/dL Very High Triglyceride: greater than or equal to 5OO mg/dL Cholesterol 167 <200 mg/dL Desirable Cholesterol: less than 200 mg/dL Borderline High Cholesterol: 200-239 mg/dL High Cholesterol: greater than 239 mg/dL LDL Cholesterol Calculated 82 <100 mg/dL Desirable LDL: less than 100 mg/dL Near Optimal/Above Optimal LDL: 110-129 mg/dL Borderline High LDL: 130-159 mg/dL High LDL: 160-189 mg/dL Very High LDL: greater than or equal to 190 mg/dL HDL Cholesterol 46 >40 mg/dL Desirable HDL: greater than 40 mg/dL Note: This HDL assay may give artificially low results in patients with liver disease. PSA,Total (Free>4and<10) Reviewed date:05/21/2024 10:33:46 AM Interpretation:Normal Performing Lab:[address] [phone] Notes/Report: PSA,Total (Free>4and<10) 0.51 0.00-4.00 ng/mL A Free PSA was not performed: The percentage of Free PSA can be used to enhance the differentiation of prostate cancer from benign prostatic disease in subjects whose PSA levels are between 4.0 and 10.0 ng/mL. For subjects whose PSA levels are below 4.0 or above 10.0 ng/mL, the risk of prostate cancer is determined on the basis of the PSA alone. Therefore the % Free PSA is recommended only for those subjects whose PSA levels are between 4.0 and 10.0 ng/mL. PSA methodology: [employer] i Chemiluminescent Microparticle Immunoassay (CMIA) Vitamin D 25-OH Total Reviewed date:05/21/2024 10:33:46 AM Interpretation:Normal Performing Lab:[address] [phone] Notes/Report: Vitamin D 25-OH Total 40.4 >30 ng/mL Health Based Reference Values* < 20 ng/mL Deficient 20-30 ng/mL Insufficient > 30 ng/mL Sufficient *Kathy SANTAMARIA. N Engl J Med. 2007;357:266-280 Care must be taken in interpreting Vitamin D results from different laboratories and methodologies. Published data demonstrated that results from patients undergoing hemodialysis may show a negative bias when tested with various automated 25-OH vitamin D assays when compared to LC-MS/MS. When testing samples from patients whose predominant form of Vitamin D is Vitamin D2, such as patients receiving Vitamin D2 supplementation, results that are subtherapeutic should be confirmed with another method such as LC-MS/MS. Thyroid Stimulating Hormone Reviewed date:05/21/2024 10:33:46 AM Interpretation:Normal Performing Lab:[address] [phone] Notes/Report: Thyroid Stimulating Hormone 3.03 0.32-4.0 uIU/ mL Note: A sustained TSH level above 2.5 uIU/mL may warrant further investigation. TSH 3rd Generation ([employer]) REASON FOR REFERRAL Reason Tinnitus Environment al allergies Diagnosis 1 Environmental allerg ies (Z91.09) Referral Organization Gavin Agrawal, FACP Referring Provider First Name Gavin Referring Provider Last Name Nereyda Referring Provider Speciality Internal M edicine Referred Provider Royal Sheffield Referred Provider Specialty Otology, Lar yngology, Rhinology General Notes Kaylen Grimaldo 024 09:11:20 AM EDT > patient notified he must call center consultant to schedule appointment. Referral Priority Routine MEDICATIONS Medication SIG (Take, Route, Frequency, Duration) Notes Start Date End Date Status Atorvastatin Calcium 10 MG 1 tablet Oral ly Once a day Active Fexofenadine HCl 180 MG 1 tablet Orally Once a day Active Fluticasone Propionate 50 MCG/ACT 1 spray in each nostril Nasally Once a day Active Multivitamins - 1 capsule Orally Onc e a day Active IMMUNIZATIONS Vaccine Route Administration Date Status Comme nts TDaP IM Intramuscular 11/09/2011 Administered Pneumococcal - PPSV23 IM Intramuscular 11/09/2011 Administ ered Influenza Quad IM Intramuscular 04/19/2020 Administered Influenza Quad IM Intramuscular 05/12/2021 Administered Influenza Quad Unknown 04/29/2019 Administered COVID-19 Pfizer BioNTech Unknown 05/14/2021 Administere d COVID-19 Pfizer BioNTech Unknown 10/19/2020 Administere d Influenza Quad Unknown 04/04/2018 Administered COVID-19 Pfizer BioNTech Unknown 09/28/2020 Administere d COVID-19 Pfizer BioNTech Unknown 01/07/2022 Administere d Influenza Quad Unknown 03/18/2022 Administered Shingrix Unknown 03/18/2022 Administered COVID-19 Moderna Bivalent Unknown 06/24/2022 Administer ed Shingrix Unknown 06/24/2022 Administered SOCIAL HISTORY Tobacco Use: Social History Observation [...] Never (0 point) Points 4 Interpretation Positive PROBLEMS Problem Type ICD Code Onset Dates Problem Status W/U Status Risk SNOMED Code Notes Problem Environmental allerg ies (Z91.09) Active confirmed 209226112 Problem Vitamin D deficiency (E55.9) Active confirmed 84605312 Problem Lumbar disc disease (M51.9) Active confirmed 015307786 Problem Acute right-sided lo w back pain without sciatica (M54.5) Active confirmed 263627805 Problem Hypercholesterolemia (E78.00) Active confirmed 31625219 Problem Leukocytosis, unspecified type (D72.829) Active confirmed 705356670 Problem Herniated lumbar intervertebral disc (M51.26) Active confirmed 014065781 VITAL SIGNS Blood pressure diastolic 78 mm Hg 05/22/2024 Height 67.75 in 05/22/2024 Blood pressure systolic 112 mm Hg 05/22/2024 Weight 199 lbs 05/22/2024 BMI 30.48 kg/m2 05/22/2024 Encounters Encounter Location Date Provider Diagnosis Gavin Dawn DO, [address] [id number] 11/15/2023 Gavin Dawn DO, [address] [id number] 11/23/2023 Gavin Dawn Encounter for genera l adult medical examination without abnormal findings Z00.00 ; Hypercholesterolemia E78.00 ; Vitamin D deficiency E55.9 and Environmental allergies Z91.09 Gavin Dawn DO, [address] [id number] 05/22/2024 Gavin Dawn Hypercholesterolemia E78.00 ; Vitamin D deficiency E55.9 and Environmental allergies Z91.09 Gavin Dawn DO, [address] [id number] 05/23/2023 Gavin Dawn DO, [address] [id number] 05/27/2023 Gavin Dawn Leukocytosis, unspec ified type D72.829 Gavin Dawn DO, [address] [place] [id number] 08/26/2023 Gavin Dawn DO, [facility] [address] [place], [place] [id number] 08/26/2023 Gavin Dawn Bronchitis J40 ; Environmental allergies Z91.09 ; Vitamin D deficiency E55.9 and Hypercholesterolemia E78.00 Gavin Dawn DO, [facility] [address] [place], [place] [id number] 05/24/2023 Gavin Dawn DO, [facility] [address] [place], [place] [id number] 05/24/2023 Gavin Dawn DO, [facility] [address] [place], [place] [id number] 09/26/2023 Gavin Dawn Bronchitis J40 ASSESSMENTS Encounter Date Diagnosis Assessment Notes Treatment Notes Treatment Clinical Notes 11/23/2023 Encounter for genera l adult medical examination without abnormal findings (ICD-10 - Z00.00) Advise Prevnar 20 vaccination 11/23/2023 Hypercholesterolemia (ICD-10 - E78.00) 05/22/2024 Vitamin D deficiency (ICD-10 - E55.9) 05/22/2024 Hypercholesterolemia (ICD-10 - E78.00) 05/27/2023 Leukocytosis, unspec ified type (ICD-10 - D72.829) 08/26/2023 Environmental allerg ies (ICD-10 - Z91.09) 08/26/2023 Bronchitis (ICD-10 - J40) Re st, fluids, Tylenol for F/C/BAZAN, Robitussin DM for cough 09/26/2023 Bronchitis (ICD-10 - J40) 11/23/2023 Vitamin D deficiency (ICD-10 - E55.9) 05/22/2024 Environmental allerg ies (ICD-10 - Z91.09) 08/26/2023 Vitamin D deficiency (ICD-10 - E55.9) 11/23/2023 Environmental allerg ies (ICD-10 - Z91.09) 08/26/2023 Hypercholesterolemia (ICD-10 - E78.00) PLAN OF TREATMENT Pending Test Test Name Order Date CBC w DIFF 11/23/2023 LIPOPROTEIN FRACTIONATION (LIPID PANEL) 11/23/2023 PROFILE, FASTING 11/23/2023 TSH (THYROID STIMULATING HORMONE) 2023 VITAMIN D 25-OH TOTAL 11/23/2023 PSA,Total (Free>4and<10) 11/23/2023 Next Appt Details Provider Name:Gavin Callejas car[place], 11/27/2024 03:00:00 PM, [address] [place] [address], [phone], Insurance Providers Payer Name Payer Address Payer Phone Subscriber Number Group Number Insured Name Patient Relationship to Insured Coverage Start Date Coverage End Date [employer] BLUE CARD [address] [place] [address] [id number] Nolan Cervantes Self - patient is the insured MEDICAL (GENERAL) HISTORY Medical History History ICD Code heartburn vitamin D deficiency diverticulitis hypercholesterolemia thrombocytopenia, resolved Acute right-sided low back pain without sciatica M54.5 Herniated lumbar intervertebral disc M51 .26 Environmental allergies Z91.09 Surgical History Surgery Date(Month/Year) wisdom teeth extraction vasectomy lumbar disc surgery 09/2020 epigastric hernia repair 03/2023
--- OUTSIDE RECORDS SUMMARY | 2024-05-23 13:34 | XMS_ITS ---
Author Organization Gavin Dawn DO, [facility] Address [address] [place] [id number] Care Team Providers Care [employer] Home Economics Teacher Name Role Phone Gavin Dawn Primary Care Provider [phone] ALLERGIES Allergen (clinical drug ingredient) Drug/Non Drug Allergy documented on EMR Reaction Allergy Type Onset Date Status cephalexin Cephalexin rash Drug Allergy Activ e ampicillin Ampicillin rash Drug Allergy Activ e amoxicillin Amoxicillin rash Drug Allergy Act charles REASON FOR VISIT 6 month f/u, Follow up hypercholesterolemia MEDICATIONS Medication SIG (Take, Route, Frequency, Duration) Notes Start Date End Date Status Atorvastatin Calcium 10 MG 1 tablet Oral ly Once a day Active Fexofenadine HCl 180 MG 1 tablet Orally Once a day Active Fluticasone Propionate 50 MCG/ACT 1 spray in each nostril Nasally Once a day Active Multivitamins - 1 capsule Orally Onc e a day Active SOCIAL HISTORY Tobacco Use: [...] Points 4 Interpretation Positive VITAL SIGNS BMI 30.48 kg/m2 05/22/2024 Blood pressure systolic 112 mm Hg 05/22/20 24 Blood pressure diastolic 78 mm Hg 024 Height 67.75 in 05/22/2024 Weight 199 lbs 05/22/2024 Encounters Encounter Location Date Provider Diagnosis Gavin Dawn , [facility] [address] [place], [place] [id number] 05/22/2024 Gavin Dawn Hypercholesterolemia E78.00 ; Vitamin D deficiency E55.9 and Environmental allergies Z91.09 ASSESSMENTS Encounter Date Diagnosis Assessment Notes Treatment Notes Treatment Clinical Notes 05/22/2024 Hypercholesterolemia (ICD-10 - E78.00) 05/22/2024 Vitamin D deficiency (ICD-10 - E55.9) 05/22/2024 Environmental allerg ies (ICD-10 - Z91.09) PLAN OF TREATMENT Medication Medication Name Sig Start Date Stop Date Notes Atorvastatin Calcium 10 MG 1 tablet Orally Once a day Fexofenadine HCl 180 MG 1 tablet Orally Once a day Fluticasone Propionate 50 MCG/ACT 1 spray in each nostril Nasally Once a day Multivitamins - 1 capsule Orally Onc e a day Next Appt Details Follow Up: 6 Months, Reason: H&P Provider Name:Gavin Callejas [place], 11/27/2024 03:00:00 PM, [address] [place] [address], [phone], Progress Notes * Examination Category Sub-Category Detail Notes General Examination GENERAL APPEARANCE: in no ac tonya distress, well developed, well nourished HEAD: normocephalic, atrau matic HEART: no murmurs, regular rate and rhythm, S1, S2 normal LUNGS: clear to auscultatio n bilaterally ABDOMEN: normal, bowel sounds present, soft, nontender, nondistended SKIN: warm and dry EXTREMITIES: no edema PSYCH: alert, oriented, cog nitive function intact
== END 2024-05-21 08:51 | disposition home or self-care (01) ==
LOC: HO.LAB 08:50
PROVIDERS: PCP Internal Medicine; Visit Provider Internal Medicine
DX: Z00.00 Encounter for general adult medical examination without abnormal findings (principal); E78.00 Pure hypercholesterolemia, unspecified; E55.9 Vitamin D deficiency, unspecified; Z91.09 Other allergy status, other than to drugs and biological substances; Z12.5 Encounter for screening for malignant neoplasm of prostate
CPT/HCPCS: 36415; 80053; 80061; 82306; 84153; 84443; 85025

== ENCOUNTER 2024-07-25 15:44 | Outpatient (AMB) | payer BC, SELFPAY ==
--- NOTE | 2024-07-25 15:47 | MHC.PC.OV ---
Vital Signs 07/25/24 15:55 Height 5 ft 7.25 in Weight 197 lb BMI 30.6 BP 164/90 H Blood Pressure Location Rt brachial Pulse 71 Pulse Source Pulse Oximeter Temp 97 F Pulse Oximetry (%) 96 Intake Visit Reasons: Headache Intake Note: no other issues Allergies amoxicillin Allergy (Severe, Verified 07/27/24 15:30) Rash cephalexin [From Keflex] Allergy (Severe, Verified 07/27/24 15:30) Rash ampicillin Allergy (Verified 07/27/24 15:30) Rash Medication List - Last Reconciled 07/27/24 by Neal Lanza MD atorvastatin 10 mg PO DAILY dexamethasone 4 mg PO BID fexofenadine 60 mg PO BID fluticasone propionate 50 mcg/actuation 1 spray intranasal DAILY ibuprofen 600 mg PO Q6H PRN indomethacin 50 mg PO BID multivitamin 1 tab PO DAILY PFSH Medical History Hypercholesteremia History of diverticulitis Hx of heartburn Chronic back pain Epigastric hernia Surgical History History of wisdom tooth extraction History of microdiscectomy History of vasectomy Social History Alcohol intake: current Patient Tobacco Use Status: Never used Tobacco Physical exam (Primary Care) Vital Signs: Last Vital Signs Temp 97 F 07/25/24 15:55 Pulse 71 07/25/24 15:55 BP 164/90 H 07/25/24 15:55 Pulse Ox 96 07/25/24 15:55 BMI result Body Mass Index 30.6 Tobacco/Smoking Status: Tobacco use Status Patient Tobacco Use Status Never used Tobacco 07/25/24 15:48 Coding Level of Care Code New Pt Level 4 (75207) Complex EM visit Add On G2211 Diagnoses Headaches due to old head injury G44.309; S09.90XS Assessment & Plan Assessment & Plan (1) Headaches due to old head injury: Code(s): G44.309 - Post-traumatic headache, unspecified, not intractable; S09.90XS - Unspecified injury of head, sequela Plan: See below note Plan History of Present Illness The patient is a 58-year-old male presenting with persistent daily headaches following a COVID-19 infection. The patient tested positive for COVID-19 approximately three weeks ago, around . Post-COVID, the patient experienced daily headaches of varying intensity, responsive to ibuprofen (400 mg). The headaches are described as pressure-like, ester to sensations caused by rapid ice cream consumption or MSG intake, and occur between the temples and occasionally at the back of the head. Prior to these episodes, the patient had minimal history of headaches and described them as being severe or incapacitating, with the exception of two possible migraine attacks in the past. The headaches were initially considered to be a secondary sinus infection and treated with a 7-day course of doxycycline, with minor improvement noted on the second day of treatment. However, the headaches persisted, causing concern. He was advised by a physician clinical nursing assistant to consider imaging if symptoms continued. The patient remains somewhat skeptical of this advice but seeks further evaluation due to concern over these new symptoms. Additionally, the patient reports a recent single episode of transient blurring of vision and describes a discontinuation of previously experienced daily bloody nasal discharge. There is no prior migraine history noted, and current medication regimens include allergy treatments (fexofenadine and nasal mist), atorvastatin for hyperlipidemia, a multivitamin, and vitamin D for deficiency. 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 - Resides at home with family. 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 - Expresses general functional capacity at work and at home despite headaches. Review of Systems - Ears, Nose, and Throat: Reports transient visual blurring. - Neurological: Reports headaches seven days a week, variable intensity. Physical Exam General: Appearance normal, both eyes and all related structures Nutritional Appearance: Well nourished Orientation/consciousness: Patient oriented x3 Limitations: No limitations Head: Normal to inspection, patient reports persistent headaches of varying intensity, sometimes between temples or throughout the head, resembling sinus pressure Neck: Normal visual inspection, patient reports feeling one gland slightly swollen Chest: Normal palpation of entire chest wall Respiratory: Normal respiratory effort Neurology: Patient oriented x3, no abnormalities found in previous neurological tests Results Plan - Order a cranial CT scan to rule out structural abnormalities contributing to persistent headaches. - Perform blood tests to assess inflammatory markers, exploring possibilities of giant cell arteritis. - Prescribe indomethacin for a 10-day course to break the cycle of headaches and prevent further episodes. - Review medical and family history for potential hereditary conditions affecting neurological and cardiovascular health. Patient was informed and verbally consented to the use of an ambient scribe for clinic note documentation during this visit. Discussion Notes I discussed with the patient the suspected diagnoses and explained that the headaches could represent a variant of migraines or giant cell arteritis. I emphasized the importance of confirming these conditions with imaging and blood tests. Indomethacin was introduced as a prophylactic treatment, with the patient instructed to continue its use regardless of symptom presence until reevaluation. The benefits of preventing headaches before onset were explained, as well as potential alternative diagnoses if imaging or test results indicate. The patient consented to the plan and understood the necessity of a follow-up in two weeks to reassess symptoms and treatment efficacy. Patient Instructions - Begin indomethacin as prescribed daily for 10 days, continuing use even if headaches subside. - Schedule and attend a CT scan and blood tests as ordered. - Monitor and document any changes in headache patterns or new symptoms. - Return for a follow-up appointment in two weeks. - Report any significant new symptoms or severe headache innovations immediately. Orders: Orders Basic Metabolic Panel 07/25/24 G44.309 - Post-traumatic headache, unspecified, not intractable, S09.90XS - Unspecified injury of head, sequela Complete Blood Count no Diff 07/25/24 G44.309 - Post-traumatic headache, unspecified, not intractable, S09.90XS - Unspecified injury of head, sequela Lipid Panel 07/25/24 G44.309 - Post-traumatic headache, unspecified, not intractable, S09.90XS - Unspecified injury of head, sequela Thyroid Stimulating Hormone 07/25/24 G44.309 - Post-traumatic headache, unspecified, not intractable, S09.90XS - Unspecified injury of head, sequela CT head/brain wo IV con 07/25/24 G44.309 - Post-traumatic headache, unspecified, not intractable, S09.90XS - Unspecified injury of head, sequela Liver Panel 07/25/24 G44.309 - Post-traumatic headache, unspecified, not intractable, S09.90XS - Unspecified injury of head, sequela UA and rflx microscopic 07/25/24 G44.309 - Post-traumatic headache, unspecified, not intractable, S09.90XS - Unspecified injury of head, sequela Medications: New indomethacin administer with food or milk 50 mg PO BID 30 caps 0RF
[2024-07-25 15:55] VITALS: BP 164/90; PULSE 71; TEMP 36.1; O2SAT 96; BMI 30.6
--- OUTSIDE RECORDS SUMMARY | 2024-07-25 16:30 | XMS_ITS ---
Author Organization Gavin Dawn DO, FACP Address [address] [place], [place] [id number] Care Team Providers Care Airfreight Operations Agent Name Role Phone Gavin Dawn Primary Care Provider REASON FOR VISIT physical Encounters Encounter Location Date Provider Diagnosis Gavin Dawn DO, FACP [address] [place] [phone] 11/15/2023 Gavin Dawn PLAN OF TREATMENT No Information
--- OUTSIDE RECORDS SUMMARY | 2024-07-25 16:30 | XMS_ITS ---
Author Organization Gavin Dawn DO, [facility] Address [address] [facility] [place] [id number] Care Team Providers Care Php Engineer Name Role Phone Gavin Dawn Primary Care Provider [phone] ALLERGIES Allergen (clinical drug ingredient) Drug/Non Drug [...] Location Date Provider Diagnosis Gavin Dawn DO, [address] [phone] 05/22/2024 Gavin Dawn Hypercholesterolemia E78.00 ; Vitamin [...] Details Follow Up: 6 Months, Reason: H&P Progress Notes * Examination Category Sub-Category Detail [...]
--- OUTSIDE RECORDS SUMMARY | 2024-07-25 16:30 | XMS_ITS ---
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 Referral Priority Routine REASON [...] Location Date Provider Diagnosis Gavin Dawn DO, [address] [id number] 11/23/2023 Gavin Dawn Encounter for genera l [...] Details Tinnitus Environment al allergies, [place] Eliu [place] Next Appt Details Follow Up: 6 Months, Reason: follow up visit,review lab work Progress Notes * Examination Category Sub-Category Detail [...] year Communication Needs [facility] Communication Needs - [facility] He aring Impairment?: No Vision Impairment?: Yes wears [...] Provider Referred Provider Not lilian 11/23/2023 Gavin Dawn, [place] Environmental allergies
--- OUTSIDE RECORDS SUMMARY | 2024-07-25 16:30 | XMS_ITS | Data Portability ---
Author Organization [facility], , [facility] Address [address] [place] [address] Care Team Providers Care Ichthyology Teacher Name Role Phone [facility] Applications Development Consultant Assessment No assessment recorded. Plan of Treatment Reminders Order Date Submit Date Provider Last Modified By Organization Details Last Modified Time Details Appointments None recorded. Lab CBC 2016 017 [facility], [address] [place], [address], 7 11:50:[address] referral - rest SSCP and diaphoresi s, with Left arm parasthesi as, lasting 90 mins. 5 days agoresolve d on own. Never seen by MD until today. feels well, no symptoms.N o evidence of [place] on rest ECG done todayRisk factor is 51 year old male with FH; adopted-kn own biologic mother had an WV in her 50's.reaso nable story, deserves workup ASA 81refer Hamp CVA, likely nuclear stress test 2017 018 KASHMIR Not available 8 19:49:29 Procedures None recorded. Surgeries None recorded. Imaging XR, chest 2016 017 [facility] ([facility]), [address], [place], [address], 7 09:17:16 electrocar diogram 2017 018 [facility], [address] [place], [address], 8 12:59:36 Medication Orders azithromyc in 250 mg tablet 2016 017 [id number], [address] [place], [address], 8 14:42:33 Qvar 40 mcg/actuat ion Metered Aerosol oral inhaler 2016 017 [facility], [address] [place], [address], 8 14:42:43 omeprazole 40 mg capsule,de layed release 2017 018 [id number], [address] [place], [address], 8 15:27:34 Patient TargetsNo targets recorded. Patient InstructionsNo instructions recorded. Reason for Referral Applications Development Consultant Referral for Ch est pain rest SSCP and diaphoresis, with Left arm parasthesias, lasting 90 mins. 5 days agoresolved on own. Never seen by MD until today. feels well, no symptoms.No evidence of [place] on rest ECG done todayRisk factor is 51 year old male with FH; adopted- known biologic mother had an W[place] in her 50's.reasonable story, deserves workup ASA 81refer Hamp CVA, likely nuclear stress test Referring Physician: Gavin Tate, Family Medicine, Encounter Date: 07/08/2017 Results Created Date Observation Date Name Description Value Unit Range Abnormal Flag Note LastModifiedBy Organization Detail LastModifiedTime 09/02/19 17 09/01/2016 CBC WBC 6.3 K/? ? ?L 4.2-9. 1 Not Available [address], [address], 09/01/2016 11:50:46 09/02/19 17 09/01/2016 CBC RBC 4.55 M/? ? ?L 4.63-6 .08 low Not Available [address], [address], 09/01/2016 11:50:46 09/02/19 17 09/01/2016 CBC HGB 14.4 g/dL 13.7-1 7.5 Not Available [address], [address], 09/01/2016 11:50:46 09/02/19 17 09/01/2016 CBC HCT 43.4 % 40.1-5 1.0 Not Available [address], [address], 09/01/2016 11:50:46 09/02/19 17 09/01/2016 CBC MCV 95.4 ? ? ?L 79.0-9 2.2 high Not Available [address], [address], 09/01/2016 11:50:46 09/02/19 17 09/01/2016 CBC MCH 31.6 pg 25.7-3 2.2 Not Available [address], [address], 09/01/2016 11:50:46 09/02/19 17 09/01/2016 CBC MCHC 33.2 g/dL 32.3-3 6.5 Not Available [address], [address], 09/01/2016 11:50:46 09/02/19 17 09/01/2016 CBC plt 113.0 K/? ? ?L 163.0- 337.0 low JOSEPHINE=V erifi ed by Cecile farley Not Available [address], [address], 09/01/2016 11:50:46 09/02/19 17 09/01/2016 CBC MPV 12.3 9.4-12 .4 Not Available [address], [address], 09/01/2016 11:50:46 09/02/19 17 09/01/2016 CBC neut% 55.5 % 34.0-6 7.9 Not Available [address], [address], 09/01/2016 11:50:46 09/02/19 17 09/01/2016 CBC neut# 3.5 1.8-5. 4 Not Available [address], [address], 09/01/2016 11:50:46 09/02/19 17 09/01/2016 CBC lymph % 26.0 % 21.8-5 3.1 Not Available [address], [address], 09/01/2016 11:50:46 09/02/19 17 09/01/2016 CBC lymph # 1.6 K/? ? ?L 1.3-3. 6 Not Available [address], [address], 09/01/2016 11:50:46 09/02/19 17 09/01/2016 CBC mono% 14.4 % 5.3-12 .2 high Not Available [address], [address], 09/01/2016 11:50:46 09/02/19 17 09/01/2016 CBC mono# 0.9 0.3-0. 8 high Not Available [address], [address], 09/01/2016 11:50:46 09/02/19 17 09/01/2016 CBC eo% 3.5 % 0.8-7. 0 Not Available [address], [address], 09/01/2016 11:50:46 09/02/19 17 09/01/2016 CBC eo# 0.2 0.0-0. 5 Not Available [address], [address], 09/01/2016 11:50:46 09/02/19 17 09/01/2016 CBC baso% 0.6 % 0.2-1. 2 Not Available [address], [address], 09/01/2016 11:50:46 09/02/19 17 09/01/2016 CBC baso# 0.0 0.0-0. 1 Not Available [address], [address], 09/01/2016 11:50:46 09/02/19 17 09/01/2016 CBC RDW-CV 12.6 % 11.6-1 4.4 Not Available [address], [address], 09/01/2016 11:50:46 07/08/19 18 07/08/2017 elect paris patelgr am Result Not Available [address], [address], 07/08/2017 14:52:47 08/30/19 18 08/29/2017 HbA1c (hemo globi n A1c), blood hemoglobin A1C 5.2 % 4.3-5. 8 Not Available [facility] (Outpatient) [address] [place] [address], [address], 08/29/2017 11:22:20 08/30/19 18 08/29/2017 CMP, serum or plasm a sodium 141 mmol/ L 133-14 6 Not Available [facility] (Outpatient) [address] [place] [address], [address], 08/29/2017 11:45:54 08/30/19 18 08/29/2017 CMP, serum or plasm a potassium 4.4 mmol/ L 3.3-5. 1 Not Available [facility] (Outpatient) [address] [place] [address], [address], 08/29/2017 11:45:54 08/30/19 18 08/29/2017 CMP, serum or plasm a chloride 100 mmol/ L 96-108 Not Available [facility] (Outpatient) [address] [place] [address], [address], 08/29/2017 11:45:54 08/30/19 18 08/29/2017 CMP, serum or plasm a CO2 27 mmol/ L 21-35 Not Available [facility] (Outpatient) [address] [place], [address], 08/29/2017 11:45:54 08/30/19 18 08/29/2017 CMP, serum or plasm a BUN 18 mg/dL 6-19 Not Available [facility] (Outpatient) [address] [place], [address], 08/29/2017 11:45:54 08/30/19 18 08/29/2017 CMP, serum or plasm a creatinine 0.90 mg/dL 0.5-1. 5 Not Available [facility] (Outpatient) [address] [place], [address], 08/29/2017 11:45:54 08/30/19 18 08/29/2017 CMP, serum or plasm a glucose 88 mg/dL 70-99 Not Available [facility] (Outpatient) [address] [place], [address], 08/29/2017 11:45:54 08/30/19 18 08/29/2017 CMP, serum or plasm a albumin 4.5 g/dL 3.9-4. 8 Not Available [facility] (Outpatient) [address] [place], [address], 08/29/2017 11:45:54 08/30/19 18 08/29/2017 CMP, serum or plasm a total protein 7.7 g/dL 6.5-8. 0 Not Available [facility] (Outpatient) [address] [place], [address], 08/29/2017 11:45:54 08/30/19 18 08/29/2017 CMP, serum or plasm a calcium 9.8 mg/dL 8.4-10 .3 Not Available [facility] (Outpatient) [address] [place], [address], 08/29/2017 11:45:54 08/30/19 18 08/29/2017 CMP, serum or plasm a alkaline phosphatase 78 U/L 39-117 Not Available [facility] (Outpatient) [address] [place] [address], [address], 08/29/2017 11:45:54 08/30/19 18 08/29/2017 CMP, serum or plasm a total bilirubin 0.6 mg/dL 0.0-1. 2 Not Available [facility] (Outpatient) [address] [place] [address], [address], 08/29/2017 11:45:54 08/30/19 18 08/29/2017 CMP, serum or plasm a AST 29 U/L 0-37 Not Available [facility] (Outpatient) [address] [place] [address], [address], 08/29/2017 11:45:54 08/30/19 18 08/29/2017 CMP, serum or plasm a ALT 37 U/L 0-40 Not Available [facility] (Outpatient) [address] [place] [address], [address], 08/29/2017 11:45:54 08/30/19 18 08/29/2017 CMP, serum or plasm a globulin 3.2 g/dL 1-4.8 Not Available [facility] (Outpatient) [address] [place] [address], [address], 08/29/2017 11:45:54 08/30/19 18 08/29/2017 CMP, serum or plasm a eGFR 99 mL/mi n/1.7 3m2 >59 If patie nt is black , multi ply resul t by 1.159 . The eGFR calcu latrowan n has gallo ed from the MDRD equat ion to the CKD-E PI equat ion as of August 16, 2017. Not Available [facility] (Outpatient) [address] [place] [address], [address], 08/29/2017 11:45:54 08/30/19 18 08/29/2017 CMP, serum or plasm a anion gap 18 mmol/ L 10-20 Not Available [facility] (Outpatient) [address] [place] [address], [address], 08/29/2017 11:45:54 08/30/19 18 08/29/2017 TSH, serum or plasm a TSH 4.83 uIU/m L 0.27-4 .20 high Not Available [facility] (Outpatient) [address] [place] [address], [address], 08/29/2017 11:45:56 08/30/19 18 08/29/2017 CBC WBC 6.48 K/uL 3.40-1 1.20 Not Available [facility] (Outpatient) [address] [place] [address], [address], 08/29/2017 11:46:35 08/30/19 18 08/29/2017 CBC RBC 4.67 M/uL 4.50-5 .50 Not Available [facility] (Outpatient) [address] [place] [address], [address], 08/29/2017 11:46:35 08/30/19 18 08/29/2017 CBC HGB 14.7 g/dL 13.0-1 7.0 Not Available [facility] (Outpatient) [address] [place] [address], [address], 08/29/2017 11:46:35 08/30/19 18 08/29/2017 CBC HCT 43.2 % 40.0-5 1.0 Not Available [facility] (Outpatient) [address] [place] [address], [address], 08/29/2017 11:46:35 08/30/19 18 08/29/2017 CBC plt 93 K/uL 130-40 0 low Small plate let clump s prese nt. Not Available [facility] (Outpatient) [address] [place] [address], [address], 08/29/2017 11:46:35 08/30/19 18 08/29/2017 CBC MCV 92.5 fL 79.0-9 8.0 Not Available [facility] (Outpatient) [address] [place], [address], 08/29/2017 11:46:35 08/30/19 18 08/29/2017 CBC MCH 31.5 pg 27.0-3 4.8 Not Available [facility] (Outpatient) [address] [place] [address], [address], 08/29/2017 11:46:35 08/30/19 18 08/29/2017 CBC MCHC 34.0 g/dL 31.5-3 6.0 Not Available [facility] (Outpatient) [address] [place] [address], [address], 08/29/2017 11:46:35 08/30/19 18 08/29/2017 CBC RDW 12.0 % 10.8-1 4.6 Not Available [facility] (Outpatient) [address] [place] [address], [address], 08/29/2017 11:46:35 08/30/19 18 08/29/2017 CBC MPV 12.5 fL 9.4-12 .4 high Not Available [facility] (Outpatient) [address] [place] [address], [address], 08/29/2017 11:46:35 08/30/19 18 08/29/2017 CBC NRBC 0.00 /100_ WBCs Not Available [facility] (Outpatient) [address] [place] [address], [address], 08/29/2017 11:46:35 08/30/19 18 08/29/2017 CBC absolute NRBC 0.00 K/uL Not Available [facility] (Outpatient) [address] [place] [address], [address], 08/29/2017 11:46:35 08/30/19 18 08/29/2017 lipid panel , blood HDL 41 mg/dL Inter preta tion: Risk Level Males Decre ased >45 mg/dL [place] ge 40-45 mg/dL Incre ased <40 mg/dL Not Available [facility] (Outpatient) [address] [place], [address], 08/29/2017 12:07:21 08/30/19 18 08/29/2017 lipid panel , blood cholesterol 225 mg/dL 0-240 Not Available [facility] (Outpatient) [address] [place], [address], 08/29/2017 12:07:21 08/30/19 18 08/29/2017 lipid panel , blood triglyceride s 208 mg/dL 30-160 high Not Available [facility] (Outpatient) [address] [place] [address], [address], 08/29/2017 12:07:21 08/30/19 18 08/29/2017 lipid panel , blood LDL 142 mg/dL 50-129 high LDL level s in terms of risk for coron deanne heart disea se: <100 mg/dL : Optim al 100-1 29 mg/dL : Near or above optim al 130-1 59 mg/dL : Borde rline high 160-1 89 mg/dL : High >190 mg/dL : Very High Not Available [facility] (Outpatient) [address] [place], [address], 08/29/2017 12:07:21 08/30/19 18 08/29/2017 lipid panel , blood cardiac risk ratio 5.5 3.4-5. 0 high Not Available [facility] (Outpatient) [address] [place], [address], 08/29/2017 12:07:21 08/30/19 18 08/29/2017 T4, free, serum free T4 1.2 NG/dL 0.9-1. 7 Not Available [facility] (Outpatient) [address] [place], [address], 08/29/2017 12:09:44 10/10/19 22 10/09/2021 SARS- COV-2 RNA (COVI D-19) , QUALI TATIV E NAAT sarscov2 NEGATI VE negati ve normal This test has been autho rized by the FDA under an Emerg ency Use Autho rizat ion(E UA) for you by autho rized labs. Not Available [facility] [address], [place], [address], 10/09/2021 14:28:13 09/02/19 17 09/01/2016 XR, chest OBSERV ATION: Chest 2 View Histor y: Produc tive cough Compar trudy: Compar trudy Findin gs: The lungs are clear. The cardom ediast inal silhou ette and bony and soft tissue s are normal for age. IMPRES MARTHA: Normal POS: VMG Compar trudy: Compar trudy Findin gs: The lungs are clear. The cardom ediast inal silhou ette and bony and soft tissue s are normal for age. IMPRES MARTHA: Normal POS: VMG Findin gs: The lungs are clear. The cardom ediast inal silhou ette and bony and soft tissue s are normal for age. IMPRES MARTHA: Normal POS: VMG Electr onical ly signed Readin g Physic mirella: Chirag arcos [facility] (Imaging) [address], [place], [address], 2016 14:51:17 07/08/19 18 elect rocar diogr am No observ ation record ed. [email or web address] Not Available 07/08 15:06:19 08/31/19 18 08/29/2017 NM, myoca rdial perfu martha scan No observ ation record ed. [email or web address] [address], [place], [address], 08/30/2017 10:28:08 08/31/19 18 08/29/2017 US, echoc ardio gram, trans thora cic, compl ete No observ ation record ed. [email or web address] Not Available 08/30 15:52:19 Result Notes None recorded. Problems Name Problem SNOMED Code Status Onset Date Resolution Date Notes Provider Name and Address Organization Details Recorded Time Diverticulitis of colon 686331141 Active Gavin Tate MD [address] [place], [place] [address], [address], [facility] 6 10:22:50 Vitamin D deficiency 70634820 Active 2015 Gavin Tate MD [address] [place], [place] [address], [address], [facility] 6 13:31:04 Hypothyroidism 66208768 Active 2018 Toyin Troncoso [facility] 9 10:52:54 Problem Notes None recorded. Procedures Surgical History Date Name Laterality Status Provider Name and Address Organization Details Recorded Time 2 Payton - EGD completed Velasquez Cain MD [address] [place] [address], [phone], [facility] 10/12/2021 09:00:20 2 Payton - Colonoscopy completed Velasquez Cain MD [address] [place] [address], [phone], [facility] 10/12/2021 09:02:25 7 Colonoscopy with biopsy completed Ever Carias NP [address] [place] [address], [phone], [facility] 07/16/2016 09:06:41 7 Carlos - Colonoscopy completed Marco Antonio Gonzalez [address] [place] [address], [phone], [facility] 07/09/2016 10:28:15 Imaging Results Imaging Date Name Status LastModified by Organization Details LastModified Time 09/01/2016 XR, chest completed [facility] (Imaging) [address], [place], [address], 2016 14:51:17 07/08/[address] [facility] Informa tion not available 07/08/2017 15:06:19 08/29/2017 NM, myocardial perfusion scan completed [facility] [address], [place], [address], 08/30/2017 10:28:08 08/29/2017 US, echocardiogram, transthoracic, complete completed Information not available 08/30/2017 15:52:19 Procedure Notes None recorded. Medical Equipment None Reported. Allergies Allergen ID Allergen Name Allergen Category Reaction Reaction Severity Criticality Documentation Date Start Date Code Code System Note Provider Name and Address Organization Details Recorded Time 307649 ampicilli n medicatio n rash Not available Not available 09/19/2014 733 RxNorm Didi Dalton null, [facility] 5 09:22:52 58650 amoxicill in medicatio n rash Not available Not available 11/09/2011 723 RxNorm Soraya Delaney ZONE MAINTENANCE TECHNICIAN [facility], [facility] 2 10:26:37 99641 Keflex medicatio n rash Not available Not available 11/09/2011 21679 7 RxNorm Soraya Delaney ZONE MAINTENANCE TECHNICIAN null, [facility] 2 10:26:37 Medications Name Sig Start Date Stop Date Status Note LastModified by Organization Details LastModified Time doxycycline hyclate 100 mg capsule Take 1 capsule twice a day by oral route for 7 days. active Not Available Not Available No t Available azithromyci n 250 mg tablet Take 2 tablets (500 mg) by oral route once daily for 1 day then 1 tablet (250 mg) by oral route once daily for 4 days 07/08 completed Not Available Not Available Not Available ranitidine 300 mg tablet active Not Available Not Available Not Available clarithromy kerry 500 mg tablet Take 1 tablet every 12 hours by oral route for 7 days. active Not Available Not Available No t Available moxifloxaci n 400 mg tablet Take 1 tablet every day by oral route. 07/30 completed Not Available Not Available Not Available metronidazo le 500 mg tablet Take 1 tablet every 8 hours by oral route for 10 days. 07/30 completed Not Available Not Available Not Available acetaminoph en 300 mg-codeine 30 mg tablet 03/05 completed Not Available Not Available Not Available prochlorper azine maleate 10 mg tablet 07/30 completed Not Available Not Available Not Available omeprazole 40 mg capsule,del ayed release Take 1 capsule every day by oral route for 90 days. active Not Available Not Available No t Available Cipro 500 mg tablet Take 1 tablet every 12 hours by oral route for 10 days. 07/30 completed Not Available Not Available Not Available ranitidine 300 mg capsule Take 1 capsule every day by oral route at bedtime for 30 days. 03/05 completed Not Available Not Available Not Available Qvar 40 mcg/actuati on Metered Aerosol oral inhaler Inhale 2 puffs twice a day by inhalatio n route for 10 days. 07/08 completed Not Available Not Available Not Available omeprazole 08/30 completed Not Available Not Available Not Available fexofenadin e active Not Available Not Available Not Available peg 3350-electr olytes 236 gram-22.74 gram-6.74 gram-5.86 gram solution 07/30 completed Not Available Not Available Not Available Vitals Date Recorded Body height Body weight Body mass index (BMI) Body temperature Oxygen saturation Oxygen saturation in Arterial blood by Pulse oximetry Heart rate Systolic blood pressure Diastolic blood pressure Provider Name and Address Organization Details Last Updated DateTime 7 374.65 cm 33656.6 6 g 6.1 kg/m2 98.8 [degF] 96 % 96 % 93 /min 138 mm[Hg] 90 mm[Hg] Estela Haas [facility] [place] 7 15:10:55 Date Recorded Body height Body weight Body mass index (BMI) Heart rate Body temperature Oxygen saturation Oxygen saturation in Arterial blood by Pulse oximetry Systolic blood pressure Diastolic blood pressure Provider Name and Address Organization Details Last Updated DateTime 7 172.72 cm 93625.5 9 g 28.1 kg/m2 64 /min 98 [degF] 96 % 96 % 138 mm[Hg] 84 mm[Hg] Wil echols LPN [facility] 7 08:12:39 Date Recorded Body height Body mass index (BMI) Body weight Body temperature Oxygen saturation Oxygen saturation in Arterial blood by Pulse oximetry Heart rate Systolic blood pressure Diastolic blood pressure Provider Name and Address Organization Details Last Updated DateTime 8 172.72 cm 28.6 kg/m2 81518.3 7 g 98.9 [degF] 97 % 97 % 97 /min 118 mm[Hg] 90 mm[Hg] ALYSON Fermin [facility] 8 14:46:18 Date Recorded Body height Body mass index (BMI) Body weight Heart rate Systolic blood pressure Diastolic blood pressure Provider Name and Address Organization Details Last Updated DateTime 8 172.72 cm 29.4 kg/m2 67892.0 3 g 86 /min 126 mm[Hg] 82 mm[Hg] Mei Schwatrz LPN [facility] 8 15:45:03 Social History Question Answer Notes LastModified by Organizat ion Details LastModified Time Tobacco Smoking Status Former Smoker IZABELLA Orr, [facility] 11/09/2011 10:26:37 What Is Your Level Of Alcohol Consumption? Moderate 2 Drinks Daily Information not available 09/19/2014 What Is Your Level Of Caffeine Consumption? Moderate 2 Cups Tea Daily Except For Coffee On Weekends Information not available 09/19/2014 How Much Tobacco Do You Chew? None Information not available 01/09/2015 What Is Your Occupation? [employer] Information not available 11/09/2011 When Did You Quit Smoking? 16+yearssinc elastcigaret te 15-20 Yrs Ago Information not available 09/19/2014 How Many Days In The Past Year Have You Had A Heavy Drinking Consumption (4+ Female, 5+ Male)? 2 agladu Information not available 08/30/2017 Are There Any Guns Present In Your Home? No Information not available 09/19/2014 Live Alone Or With Others? With Others Information not available 11/09/2011 Patient Has Health Care Proxy Signed And In Chart No 08/30/17 Will Check At Home But Declines Form. lpolidoro Information not available 11/09/2011 Marital Status Informatio n not available 11/09/2011 Mosquito Repellent Used Routinely Yes Information not available 09/19/2014 What Was The Date Of Your Most Recent Tobacco Screening? 08/30/2017 Information not available 01/03/2019 How Many Children Do You Have? 1 Dtr Born 2007 Information not available 01/09/2015 Seat Belts Used Routinely Yes Information not available 09/19/2014 Smoke Alarm In Home Yes Information not available 09/19/2014 Do You Use Sunscreen Routinely? Yes Information not available 09/19/2014 Sex: Unknown Functional Status None recorded. Mental Status None recorded. Family History Nothing Reported Notes:adopted . known biolog ic mother had an [place] in her 50's. No maternal sig medical hx. except diabetes. esoph [place]. Medical History No medical history recorded. Immunizations Vaccine Type Date Status Note Provider Nam e and Address Organization Details Recorded Time Tdap 2 completed Not Available Pending sale to [facility] 06/30/2019 02:27:39 pneumococcal polysaccharide PPV23 2 completed Not Available Pending sale to [facility] 06/30/2019 02:14:55 influenza, unspecified formulation 6 completed Wil Patel LPN [facility] 03/05/2016 18:01:40 Past Encounters Encounter ID Performer Location Encounter Start Date Encounter Closed Date Diagnosis/Indication Diagnosis SNOMED-CT Code Diagnosis ICD10 Code Diagnosis Note [id number] [facility], OFFICE [address] [place] [address] 11/09/2011 09:55:14 11/09/2011 10:58:[id number] [facility], OFFICE [address] [place] [address] 11/14/2012 09:57:58 11/14/2012 11:01:[id number] [facility], OFFICE [address] [place] [address] 12/19/2012 09:13:47 12/19/2012 10:52:13 [id number] Madelyn Veronica PA-C [facility], OFFICE [address] [place] [address] 09/19/2014 09:13:09 09/19/2014 09:47:33 Cough [id number] push fluids, humidify air. mucinex, tea with honey. probiotics encouraged . follow up if symptoms persist or worsen. [id number] Alea Small 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 [id number] Gastritis [id number] we ethan l discuss at upcoming [facility] Adult heal th examination [id number] see Risk Assessment and Lifestyle Change Counseling section above [id number] Josi Newman, OT Physical Therapy, [facility] [address] [place] [address] 01/08/2015 15:58:00 01/09/2015 12:33:20 Acquired trigger finger [id number] , [facility], [place]ICE [address] [place] [address] 01/09/2015 08:34:39 01/09/2015 09:21:55 Adult health examination [id number] see Risk Assessment and Lifestyle Change Counseling section above Counseling [id number] Pain in toe 160040703 L> >R due to OA referred Dr Abdi 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 agrees to see Jose Rafael Childs to discuss surgical options. [id number] Susy Iglesias MD , [facility], OFFICE [address] [place] [address] 10/14/2015 13:32:03 10/14/2015 14:03:05 Anterior knee pain 620095316 M25.569 M25.562 since a fall 2 y a , worsened lately after vigorous exersises, gael possible Fx of patella, will FU aftwr XR for definite desision about treatment options [id number] Rosibel Meza , [facility], OFFICE [address] [place] [address] 10/21/2015 09:31:24 10/21/2015 15:24:34 Diverticulitis of colon 351734870 K57.32 day two of antibiotis c, I reassurred him that his abd pain with sudden movements should remit over next 4 days. dz cause of anatomy, recurrence , signs of and detention treatment discussed. he may likely have another attack, but he is well aware of how it will present. Q's answered. i informed him that study has disproven the old dietary restrictio ns. 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 HP neg agrees to complete a month PPI or double dose ranitidine Hernia of anterior abdominal wall 967507143 K43.9 mild in size, progressiv e, upper midline ventral hernias, inevitable progressio n self reduction, ER indication s discussed. agrees to see Jose Rafael Childs to discuss surgical options. [id number] Gavin Tate MD , [facility], [place]ICE [address] [place] [address] 03/05/2016 17:42:59 03/08/2016 10:09:56 Diverticulitis of colon 062641965 K57.32 tightness llq, soft stool, not movement or meal related, no fever. is tuesday so concerned. appears to be same as his presentati on s in 10/2015, will retreat. he will take probiotics . prior Pt presents for 10/19/15 [facility] and 10/20/15 [facility] f/u-LLQ pain and nausea, no diarrhea, no fever.. Had U/A, normal, had CT done at [facility], turned out to be diverticul itis. Given antibiotic s and pain meds Screening for malignant neoplasm of colon 776937635 Z12.11 Referral for a DIRECT booked colonoscop y. This patient is a healthy ASA Class 1 or 2 patient (only mild systemic disease), or a STABLE, well controlled insulin dependent diabetic. They do not have serious cardiac disease ie WV/angiopl asty within 1 year, symptomati c CHF; renal failure with CKD 4 or 5; take Coumadin, Plavix, Aggrenox, etc. 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 HP neg agrees to complete a month PPI or double dose ranitidine Hernia of anterior abdominal wall 930125776 K43.9 mild in size, progressiv e, upper midline ventral hernias, inevitable progressio n self reduction, ER indication s discussed. agrees to see Jose Rafael Childs to discuss surgical options. [id number] Gavin Tate MD , [facility], OFFICE [address] [place] [address] 04/21/2016 13:58:01 04/21/2016 14:36:42 Adult health examination 499636006 Z00.00 see Risk Assessment and Lifestyle Change Counseling section above Counseling 747395137 Z71 .9 Diverticul itis of colon 304534173 K57.32 04/21/16 again reports he had recent early symptoms, resolved with liquid diet.He wishes to avoid abx due to confusion, lack focus, he feels the meds induced 03/05/16 tightness llq, soft stool, not movement or meal related, no fever. is tuesday so concerned. appears to be same as his presentati on s in 10/2015, will retreat. he will take probiotics . day two of antibiotic , I reassurred him that his abd pain with sudden movements should remit over next 4 days. dz cause of anatomy, recurrence , signs of and detention treatment discussed. he may likely have another attack, but he is well aware of how it will present. Q's answered. i informed him that study has disproven the old dietary restrictio ns. Anterior knee pain 24796 3006 M25.569 M25.562 historical . since a fall 2 y a , worsened lately after vigorous exercises, gael possible Fx of patella, will FU after XR for definite decision about treatment options Pain in toe 801115765 M7 9.676 historical . 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 left pinky locks up in AM seen Josi Rainier Gastritis 5587549 K29.70 prior- appears to have recurred 10/2015, will retreat a month. HP neg agrees to complete a month PPI or double dose ranitidine Hernia of anterior abdominal wall 874637052 K43.9 stable with valsalva. mild in size, progressiv e, upper midline ventral hernias, inevitable progressio n self reduction, ER indication s discussed. agrees to see Jose Rafael Childs to discuss surgical options. 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 This patient is a healthy ASA Class 1 or 2 patient (only mild systemic disease), or a STABLE, well controlled insulin dependent diabetic. They do not have serious cardiac disease ie WV/angiopl asty within 1 year, symptomati c CHF; renal failure with CKD 4 or 5; take Coumadin, Plavix, Aggrenox, etc. Pain in toe 186411695 M7 9.676 historical .L>>R due to OA referred Dr Abdi Gastritis 4321234 K29.70 historical .appears to have recurred 10/2015, will retreat a month. HP neg agrees to complete a month PPI or double dose ranitidine Diverticul itis of colon 163463573 K57.32 tightness llq, soft stool, not movement or meal related, no fever. is tuesday so concerned. appears to be same as his presentati on s in 10/2015, will retreat. he will take probiotics . prior Pt presents for 10/19/15 [facility] and 10/20/15 [facility] f/u-LLQ pain and nausea, no diarrhea, no fever.. Had U/A, normal, had CT done at [facility], turned out to be diverticul itis. Given antibiotic s and pain meds Hernia of anterior abdominal wall 864945748 K43.9 mild in size, progressiv e, upper midline ventral hernias, inevitable progressio n self reduction, ER indication s discussed. agrees to see Jose Rafael Childs to discuss surgical options. Anterior knee pain 38660 3006 M25.569 M25.562 historical .since a fall 2 y a , worsened lately after vigorous exersises, gael possible Fx of patella, will FU aftwr XR for definite desision about treatment options [id number] Marco Antonio Carlos [facility], [facility] [address] [place] [address] 07/09/2016 09:12:17 07/09/2016 13:48:18 [id number] Josie Villarreal MD , [facility], [address] [place] [address] 07/30/2016 15:02:22 07/30/2016 15:28:50 Acute upper respiratory infection 11756997 J06.9 Seems to have cleared one URI, and then come down with another. Educated patient that URI is a viral illness of the upper airways. It is not bacterial and does not benefit from antibiotic s. Average duration of URI is 7-10 days but in a recent trial, treatment at 7-10 days of illness with antibiotic s, intranasal steroids, or placebo did not alter natural history at 3 weeks. Recommende d symptomati c treatments including NSAIDS, semi-uprig ht sleep position, antihistam bruce at HS, limited course of nasal sympathomi metics and/or cough syrups, and nasal saline rinses with soft squeeze bottle or Neti pot. Return for fevers > 101 for 3 days, worsening sinus pain, or failure to resolve in 2-4 weeks. [id number] Gavin Tate MD , [facility], [address]ICE [address] [place] [address] 09/01/2016 07:52:21 09/01/2016 08:32:31 Cough 08253885 R05 09/01/16his myalgias , bedbound 2 days of influenza like syndrome of 07/30/16 resolvedst ill no feverspleu ritic cough talisha in AM, productive , doeHR elevated, noted in bedno chest pressure.e xam is benign no evid of sig CP dz.likely a second infection which is clearing.x ray, bloodwork to be sure [id number] Gavin Tate MD , [facility], [address] [place] [address] 07/08/2017 14:28:11 07/08/2017 15:31:21 Chest pain 77140108 R07.9 rest SSCP and diaphoresi s, with Left arm parasthesi as, lasting 90 mins. 5 days agoresolve d on own. Never seen by MD until today. feels well, no symptoms. No evidence of WV on rest ECG done today Risk factor is 51 year old male with FH;adopted -known biologic mother had an WV in her 50's.deser ves workupASA 81refer Hamp CVA, likely nuclearstr ess test Gastroesop hageal reflux disease 717623071 K21.9 caffeine drinking againfaile d ranitidine for this condition in the pastomep alleviates CP even when taken every few days, will renew Palpitations 76263284 R0 0.2 from decades ago [id number] Gavin Tate MD , [facility], [address] [place] [address] 08/30/2017 15:34:07 09/05/2017 13:27:08 Hypothyroidism 52212220 E03.9 bord high 2018we discussed need to follow, ordered for mid 2018 Chest pain 82447486 R07. 9 card consulted, we discussed results of echo and thallium both negative. Chest pain is not anginal therefore. end of workup rest SSCP and diaphoresi s, with Left arm parasthesi as, lasting 90 mins. 5 days agoresolve d on own. Never seen by MD until today. feels well, no symptoms. No evidence of WV on rest ECG done today Risk factor is 51 year old male with FH;adopted -known biologic mother had an WV in her 50's.deser ves workupASA 81refer Hamp CVA, likely nuclearstr ess test Gastroesop hageal reflux disease 297096833 K21.9 caffeine drinking againfaile d ranitidine for this condition in the pastomep alleviates CP even when taken every few days, will renew Palpitations 89046695 R0 0.2 from decades ago Pityriasis rosea 8829510 4 L42 anterior chestovate M-Papules are aligned with skin folds with herald patch over left anterior shoulderas symptomati cno need to treatthis is early stagei discussed that he can expect peeling as lesions mature over many weeks.caus e course of and self limited benign nature discussed [id number] Edin Bansal RN [facility], [address] [address] 10/12/2021 07:01:50 10/12/2021 13:41:37 Health Concerns Section Related Observation LastModified by Organization Detai ls LastModified Time None Recorded Concern Status LastModified by Organization Details LastModified Time None Recorded Advance Directives Directive None Recorded Payers Encounter Date Sequence Insurance Name Policy Number Policy Gould Covered Member ID Gould Member ID Guarantor Name 07/30/2016 1 [place] [employer] 112 Nolan Billy [id number] Nolan Billy 09/01/2016 1 [place] 112 Nolan Billy [id number] Nolan Billy 07/08/2017 1 [facility]: [employer] [place] 112 Nolan Billy [id number] Nolan Billy 08/30/2017 1 [place] [employer] 112 Nolan Billy [id number] Nolan Billy 10/12/2021 1 [place] [employer] [place] 112 Nolan Billy [id number] Nolan Billy Notes Date Note Type Note Provider Name and Address Organization Details Recorded Time 07/30/2016 text/html [facility] URI Flu like SymptomsReported bypatient.Duration:sym ptoms lasting over 2 weeks Severity:moderate; Symptoms are worsening; Symptoms are persisting Associated Symptoms:No significant muscle aches; No difficulty swallowing; No swollen glands; No chest pain with deep breath; No abdominal pain; No nausea; No vomiting; No diarrhea; No rash;fever/chills;Fati tabitha and malaise;Left maxillary sinus pressure;Right maxillary sinus pressure;Cough productive of yellow-green, thick sputum;Shortness of breath;Sore throat Context:Sick contacts at work 2 weeks ago had a cold, with drainage and cough, lots of mucous. Started to feel a lot better 3 days ago. Yesterday noon throat became sore again, feels congested, coughing up thick mucous, is tired, no fever, no aches or pains, is dizzy and has a headache. Co-workers all have colds Josie Villarreal MD [address] [place] [address], [phone], [facility] 08/02/2016 12:19:06 09/01/2016 text/html [facility] URI Flu like SymptomsReported bypatient.Duration:sym ptoms lasting over 2 weeks Severity:moderate; Symptoms are worsening; Symptoms are persisting Associated Symptoms:No significant muscle aches; No difficulty swallowing; No swollen glands; No chest pain with deep breath; No abdominal pain; No nausea; No vomiting; No diarrhea; No rash;fever/chills;Fati tabitha and malaise;Left maxillary sinus pressure;Right maxillary sinus pressure;Cough productive of yellow-green, thick sputum;Shortness of breath;Sore throat Context:Sick contacts at work 2 weeks ago had a cold, with drainage and cough, lots of mucous. Started to feel a lot better 3 days ago. Yesterday noon throat became sore again, feels congested, coughing up thick mucous, is tired, no fever, no aches or pains, is dizzy and has a headache. Co-workers all have colds Gavin Tate MD [address] [place] [address], [phone], [facility] 09/01/2016 08:33:36
== END 2024-07-25 16:22 | disposition home or self-care (01) ==
LOC: HO.HMCSH 15:44
PROVIDERS: PCP Internal Medicine; Visit Provider Internal Medicine
DX: G44.309 Post-traumatic headache, unspecified, not intractable (principal); S09.90XS Unspecified injury of head, sequela

== ENCOUNTER 2024-08-08 09:23 | Outpatient (REF) | payer BC, SELFPAY ==
--- OUTSIDE RECORDS SUMMARY | 2024-08-08 10:38 | XMS_ITS ---
Author Organization Gavin Dawn DO, FACP Address [address] [place], [place] [id number] Care Team Providers Care Band Saw Runner Name Role Phone Gavin Dawn Primary Care Provider REASON FOR VISIT physical Encounters Encounter Location Date Provider Diagnosis Gavin Dawn DO, FACP [address] [place] [id number] 11/15/2023 Gavin Dawn PLAN OF TREATMENT No Information
--- OUTSIDE RECORDS SUMMARY | 2024-08-08 10:39 | XMS_ITS ---
Author Organization Gavin Dawn DO, [facility] Address [address] [facility] [place] [id number] Care Team Providers Care Cartography Technician Name Role Phone Gavin Dawn Primary Care [...] Location Date Provider Diagnosis Gavin Dawn DO, [address] [id number] 05/22/2024 Gavin Dawn Hypercholesterolemia E78.00 ; Vitamin [...]
--- OUTSIDE RECORDS SUMMARY | 2024-08-08 10:39 | XMS_ITS ---
Author Organization Gavin Dawn DO, FACP Address [address] [place] [address] [place], [place] [id number] Care Team Providers Care Fire Protection Engineering Technician Name Role Phone Gavin Dawn Primary [...] AM EDT > patient notified he must instrument specialist to schedule appointment. Referral Priority Routine [...] Location Date Provider Diagnosis Gavin Dawn DO, [address] [id number] 11/23/2023 Gavin Dawn Encounter for genera l [...]
--- OUTSIDE RECORDS SUMMARY | 2024-08-08 10:39 | XMS_ITS | Patient Health Record ---
Author Organization Gavin Dawn DO, [facility] Address [address] [place] [address] [place] [id number] Care Team Providers Care Flake Cutter Operator Name Role Phone Gavin Dawn Primary [...] ff Reviewed date:09/28/2023 11:10:19 AM Interpretation:Normal Performing Lab:[facility], [address] [place] [phone] Notes/Report: White Blood Count 7.7 4.8-10.8 X10*3/uL [...] ff Reviewed date:05/21/2024 10:10:34 AM Interpretation:Normal Performing Lab:[facility], [address] [place] [phone] Notes/Report: White Blood Count 7.4 4.8-10.8 X10*3/uL [...] NRBC Abs Auto 0.000 0.0-0.012 X10*3/uL Comprehensive [place]. Panel Fa st Reviewed date:05/21/2024 10:33:46 AM Interpretation:Abnormal Performing Lab:[facility], [address] [place] [address] Notes/Report: Sodium 139 135-145 mmol/L Potassium 4.3 [...] Panel Reviewed date:05/21/2024 10:33:46 AM Interpretation:Abnormal Performing Lab:[facility], [address] [place] [address] Notes/Report: Triglycerides 196 <150 mg/dL Desirable Triglyceride: [...] (Free>4and<10) Reviewed date:05/21/2024 10:33:46 AM Interpretation:Normal Performing Lab:[facility], [address] [place] [phone] Notes/Report: PSA,Total (Free>4and<10) 0.51 0.00-4.00 ng/mL A [...] Total Reviewed date:05/21/2024 10:33:46 AM Interpretation:Normal Performing Lab:[address] [address] Notes/Report: Vitamin D 25-OH Total 40.4 >30 [...] Hormone Reviewed date:05/21/2024 10:33:46 AM Interpretation:Normal Performing Lab:[facility], [address] [facility] [place] [address] Notes/Report: Thyroid Stimulating Hormone 3.03 0.32-4.0 uIU/ mL Note: A sustained TSH level above 2.5 uIU/mL may warrant further investigation. TSH 3rd Generation ([facility]) REASON FOR REFERRAL Reason Tinnitus Environment al allergies Diagnosis 1 Environmental allerg ies (Z91.09) Referral Organization Gavin Horowitz O, FACP Referring Provider First Name Gavin Referring Provider Last Name Nereyda Referring Provider Speciality Internal M edicine Referred Provider Royal Sheffield Referred Provider Specialty Otology, Lar yngology, Rhinology General Notes Kaylen Grimaldo 024 09:11:20 AM EDT > patient notified he must housecalls nurse to schedule appointment. Referral Priority Routine MEDICATIONS [...] Problem Environmental allerg ies (Z91.09) Active confirmed 739790017 Problem Vitamin D deficiency (E55.9) Active confirmed 55222751 Problem Lumbar disc disease (M51.9) Active confirmed 340032052 Problem Acute right-sided lo w back pain without sciatica (M54.5) Active confirmed 612018993 Problem Hypercholesterolemia (E78.00) Active confirmed 63741934 Problem Leukocytosis, unspecified type (D72.829) Active confirmed 151617051 Problem Herniated lumbar intervertebral disc (M51.26) Active confirmed 353931464 VITAL SIGNS Blood pressure diastolic 78 mm Hg 05/22/2024 Height 67.75 in 05/22/2024 Blood pressure systolic 112 mm Hg 05/22/2024 Weight 199 lbs 05/22/2024 BMI 30.48 kg/m2 05/22/2024 Encounters Encounter Location Date Provider Diagnosis Gavin Dawn DO, [facility] [address] [place], [place] [id number] 11/15/2023 Gavin Dawn DO, [facility] [address] [place], [place] [id number] 11/23/2023 Gavin Dawn Encounter for genera l adult medical examination without abnormal findings Z00.00 ; Hypercholesterolemia E78.00 ; Vitamin D deficiency E55.9 and Environmental allergies Z91.09 Gavin Dawn DO, [facility] [address] [place], [place] [id number] 05/22/2024 Gavin Dawn Hypercholesterolemia E78.00 ; Vitamin D deficiency E55.9 and Environmental allergies Z91.09 Gavin Dawn , [facility] [address] [place], [place] [id number] 08/26/2023 Gavin Dawn DO, [facility] [address] [place], [place] [phone] 08/26/2023 Gavin Dawn Bronchitis J40 ; Environmental allergies Z91.09 ; Vitamin D deficiency E55.9 and Hypercholesterolemia E78.00 Gavin Dawn DO, [facility] [address] [place], [place] [phone] 09/26/2023 Gavin Dawn Bronchitis J40 ASSESSMENTS Encounter Date Diagnosis Assessment Notes Treatment Notes Treatment Clinical Notes 11/23/2023 Encounter for genera l adult medical examination without abnormal findings (ICD-10 - Z00.00) Advise Prevnar 20 vaccination 11/23/2023 Hypercholesterolemia (ICD-10 - E78.00) 05/22/2024 Vitamin D deficiency (ICD-10 - E55.9) 05/22/2024 Hypercholesterolemia (ICD-10 - E78.00) 08/26/2023 Environmental allerg ies (ICD-10 - Z91.09) [...] D 25-OH TOTAL 11/23/2023 PSA,Total (Free>4and<10) 11/23/2023 Insurance Providers Payer Name Payer Address Payer Phone Subscriber Number Group Number Insured Name Patient Relationship to Insured Coverage Start Date Coverage End Date [employer] BLUE CARD [address] [place] [address] [id number] Nolan Cervantes Self - patient is the [...]
[2024-08-08 10:44] LABS: Hematocrit 41.2 % (42.0-52.0); Hemoglobin 13.7 g/dl (14.0-18.0); Mean Corpuscular HGB Conc 33.3 g/dl (31.0-36.0); Mean Corpuscular Hemoglobin 30.8 pg (27.0-33.0); Mean Corpuscular Volume 92.6 fL (80.0-98.0); Mean Platelet Volume 11.3 fL (9.4-12.4); Platelet Count 209 X10*3/uL (160-400); Red Blood Count 4.45 X10*6/uL (4.60-5.80); Red Cell Distribution Width 12.6 % (11.0-16.0); White Blood Count 9.2 X10*3/uL (4.8-10.8)
[2024-08-08 10:53] LABS: Appearance Urine Clear; Color Urine Yellow; Glucose Urine UA Negative (Negative); Leukocyte Esterase Urine Negative (Negative); Nitrite Urine Negative (Negative); PH 5.5 (5.0-9.0); Urine Blood Negative (Negative); Urine Ketones Negative (Negative); Urine Protein Negative (Neg-Trace)
[2024-08-08 11:19] LABS: Alanine Aminotransferase 38 U/L (0-40); Albumin Level 4.5 g/dL (3.5-5.0); Alkaline Phosphatase 98 U/L (39-117); Anion Gap 11 (12-20); Aspartate Amino Transferase 31 U/L (5-37); Bilirubin Direct 0.2 mg/dL (0.0-0.5); Bilirubin Total 0.5 mg/dL (0.0-1.0); Blood Urea Nitrogen 16 mg/dL (9-16); Calcium 9.5 mg/dL (8.4-10.2); Carbon Dioxide 24 mmol/L (22-29); Chloride 110 mmol/L (96-108); Cholesterol 161 mg/dL (<200); Estimated Glomerular Filt Rate > 60; Glucose Random 90 mg/dL (60-115); HDL Cholesterol 46 mg/dL (>40); LDL Cholesterol Calculated 98 mg/dL (<100); Potassium 3.9 mmol/L (3.3-5.1); Sodium 141 mmol/L (135-145); Total Protein 7.6 g/dL (6.5-8.0); Triglycerides 88 mg/dL (<150)
[2024-08-08 11:37] LABS: Thyroid Stimulating Hormone 2.09 uIU/mL (0.32-4.0)
[2024-08-08 16:10] LABS: C Reactive Protein 0.14 mg/dL (< or = 0.50); Magnesium 2.2 mg/dL (1.6-2.6)
[2024-08-08 16:25] LABS: Vitamin D 25-OH Total 45.5 ng/mL (>30)
[2024-08-08 16:41] LABS: Estimated Average Glucose 111 mg/dL; Hemoglobin A1c % 5.5 % (<6.0); Total Hemoglobin (HGBA1C) 3581.9602 umol/L
[2024-08-08 17:51] LABS: Erythrocyte Sedimentation Rate 9 MM/HR (0-15)
== END 2024-08-08 09:24 | disposition home or self-care (01) ==
LOC: HO.LAB 09:23
PROVIDERS: Physician Assistant Medical; PCP Internal Medicine; Visit Provider Internal Medicine
DX: Z00.00 Encounter for general adult medical examination without abnormal findings (principal); G44.309 Post-traumatic headache, unspecified, not intractable; S09.90XS Unspecified injury of head, sequela; Z13.1 Encounter for screening for diabetes mellitus
CPT/HCPCS: 36415; 80048; 80061; 80076; 81003; 82306; 83036; 83735; 84443; 85027; 85652; 86140

== ENCOUNTER 2024-08-08 15:34 | Outpatient (AMB) | payer BC, SELFPAY ==
--- NOTE | 2024-08-08 15:35 | A.OFFPC_ITS ---
Vital Signs 08/08/24 15:38 Height 5 ft 7.25 in Weight 197 lb BMI 30.6 BP 130/72 Blood Pressure Location Rt brachial Pulse 69 Pulse Source Pulse Oximeter Temp 97.1 F Pulse Oximetry (%) 97 Intake Visit Reasons: 2 week f/u Intake Note: no other issues Allergies amoxicillin Allergy (Severe, Verified 08/08/24 16:14) Rash cephalexin [From Keflex] Allergy (Severe, Verified 08/08/24 16:14) Rash ampicillin Allergy (Verified 08/08/24 16:14) Rash Medication List - Last Reconciled 08/08/24 by Mirian Her PA-C atorvastatin 10 mg PO DAILY cholecalciferol (vitamin D3) 25 mcg PO DAILY fexofenadine 60 mg PO BID fluticasone propionate 50 mcg/actuation 1 spray intranasal DAILY ibuprofen 600 mg PO Q6H PRN multivitamin 1 tab PO DAILY PFSH Medical History (Updated 08/08/24 @ 16:47 by Mirian Her PA-C) Vitamin D deficiency Headache Depression Right-sided low back pain without sciatica Coagulopathy, thrombocytopenia, transient, remote, resolved Environmental allergies Herniated lumbar intervertebral disc Hypercholesteremia History of diverticulitis Hx of heartburn Chronic back pain Epigastric hernia Surgical History History of colonoscopy (~07/09/16) History of wisdom tooth extraction History of microdiscectomy History of vasectomy Social History Alcohol intake: current Patient Tobacco Use Status: Never used Tobacco Physical exam (Primary Care) Vital Signs: Last Vital Signs Temp 97.1 F 08/08/24 15:38 Pulse 69 08/08/24 15:38 BP 130/72 08/08/24 15:38 Pulse Ox 97 08/08/24 15:38 Care Plan Goal for BP management: 130/80 at Goal today BMI result Body Mass Index 30.6 BMI Assessment/Plan discussion: High BMI High, discussed plan: lifestyle, weight reduction, dietary, physical activity and alcohol moderation Tobacco/Smoking Status: Tobacco use Status Patient Tobacco Use Status Never used Tobacco 08/08/24 15:36 Coding Level of Care Code Est Pt Level 4 (36121) Complex EM visit Add On G2211 Diagnoses Depression F32.A Headache R51.9 Hypercholesteremia E78.00 Vitamin D deficiency E55.9 Environmental allergies Z91.09 Assessment & Plan Assessment & Plan (1) Depression: Code(s): F32.A - Depression, unspecified Category: Medical Plan: Patient with depression. No signs of SI or HI. Patient denies any SI or HI. No signs of auditory visual hallucinations or thoughts of self-injury at this time. I offered starting the patient on SSRI and p.r.n. benzos for depression and anxiety although patient has a tendon about this at this time. Will place a referral for Psychiatry. Community navigator Behzad also called the patient and the plan will be to refer to psychiatrist before starting patient on any medications. Condition is stable will continue to monitor. (2) Headache: Code(s): R51.9 - Headache, unspecified Category: Medical Plan: Headache has completely resolved. Labs reviewed CBC, CMP were within normal limits. I added A1c, ESR, CRP, vitamin B1, vitamin-D along with magnesium which are pending at this time. Patient has CT scan scheduled for Tuesday. Patient has a normal neuro exam. Condition has resolved/improved will continue to monitor. (3) Hypercholesteremia: Code(s): E78.00 - Pure hypercholesterolemia, unspecified Category: Medical Plan: Patient to continue atorvastatin 10 mg daily. LDL goal is less than 100. Patient at go at this time. Will continue to monitor and continue same regimen at this time. Condition is chronic and stable. (4) Vitamin D deficiency: Code(s): E55.9 - Vitamin D deficiency, unspecified Category: Medical Plan: Patient currently on vitamin-D supplements. Condition is chronic and stable continue to monitor. (5) Environmental allergies: Code(s): Z91.09 - Other allergy status, other than to drugs and biological substances Category: Medical Plan: Patient currently on Fexofenadine 60 mg b.i.d.. Condition is chronic and stable continue to monitor. Plan Plan Follow-up evaluation of [id number] headaches shows resolution without the need for continued medication. Labs and imaging studies have been ordered to rule out residual or secondary issues. Management also includes a significant focus on addressing patient's depression through psychiatric consultation. Incorporating the results of ordered diagnostic tests, the treatment regime will be adjusted as needed. Collaboration with psychiatric services will ensure treatments for the patient's mental health align with his needs, considering both pharmacologic approaches and ongoing psychotherapy as part of the holistic care plan. Orders: Orders Erythrocyte Sedimentation Rate Today Z00.00 - Encounter for general adult medical examination without abnormal findings Magnesium Today Z00.00 - Encounter for general adult medical examination without abnormal findings Vitamin D 25-OH Total Today Z00.00 - Encounter for general adult medical examination without abnormal findings C Reactive Protein Today Z00.00 - Encounter for general adult medical examination without abnormal findings Hemoglobin A1c Today Z00.00 - Encounter for general adult medical examination without abnormal findings Vitamin B1 Today Z00.00 - Encounter for general adult medical examination without abnormal findings Referrals Psychiatry Referral F32.A - Depression, unspecified Medications: Discontinued indomethacin administer with food or milk Discontinued Reason: Doctor's Order 50 mg PO BID 30 caps 0RF Patient Instructions: Patient Instructions - Follow up with the scheduled CT scan of the brain. - Expect lab results via the patient portal; check for updates. - Await a call from the psychiatric department regarding a consultation. - Return for a follow-up in one month or sooner if symptoms worsen. - Continue current medications, including atorvastatin and vitamin D supplementation. - Monitor for any reoccurrence of headaches, and reach out if these or any new symptoms arise. - Implement stress-reducing techniques, considering current occupational stress. - For any emergent symptoms or mental health concerns, contact emergency services or go to the nearest clinic. Scribe Plan - Not visible on output: History of Present Illness The patient is a 58-year-old male presenting with a follow-up for headaches [id number] infection and mental health support for depression. Following his COVID-19 diagnosis, the patient suffered from sinus-region headaches daily, associated with post-infection recovery. Initially, these headaches were managed with daily ibuprofen until they were transitioned to indomethacin, which was discontinued due to dizziness. Headaches have since resolved without further medication, with the recent onset of symptoms ceasing approximately one week ago. Concurrently, the patient is experiencing significant depression, attributed to work-related stressors, largely stemming from layoffs at his place of employment with the [employer]. Although denying active suicidal ideations, the patient voices feelings of being emotionally overwhelmed, necessitating possible psychological support. 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 - Family: . - Nutritional intake: Takes multivitamins and vitamin D supplements. Review of Systems - Neurological: Denies dizziness, numbness, or weakness. - Visual: Denies vision changes. - Gastrointestinal: Denies black or bloody stools. - Musculoskeletal: Denies weakness. - Constitutional: Denies swallowing difficulties. - Psychological: Reports depression, lack of motivation, and emotional distress related to work. Physical Exam Appearance: Alert. Oriented X3. No acute distress. Head: Normal external exam. Normocephalic. Atraumatic. Eyes: Pupils are equal, round, and reactive to light. Extraocular movements intact. Conjunctiva and sclera normal. Eyelids normal. Ears: External auditory canal normal. Tympanic membranes normal. Throat: Pharynx normal. Uvula midline. Moist mucous membranes. Neck: Normal inspection. Neck supple. Full range of motion. No adenopathy. Thyroid Normal. No meningeal signs. No neck mass noted. Cardiovascular: Normal heart rate and rhythm. Heart sound normal. No murmurs noted. Pulses normal throughout. Respiratory: No respiratory distress. Painless inspiration. Breath sounds normal. No wheezes/rales/rhonchi noted. Chest nontender. No accessory muscle u bill noted or decreased air movement noted. Abdomen: Soft and nontender. Bowel sounds normal in all 4 quadrants. No distention noted. No organomegaly noted. No visible injury noted. Back: No costovertebral angle tenderness. Full range of motion noted. Skin: Skin warm and dry. Normal skin color. Normal skin turgor. No rashes/lesions/lacerations noted. Extremities: No lower extremity edema. Extremities exhibit normal range of motion. Extremities nontender. Neuro: Oriented X 3. No motor deficit. No sensory deficit. Reflexes normal. Results - Labs: - Hemoglobin: 13.7 g/dL, indicating mild anemia. - Chloride: 110 mmol/L. - Anion gap: 11 mmol/L. - Total Cholesterol: 161 mg/dL, within normal limits. - Triglycerides: 88 mg/dL, marked improvement from previous 196 mg/dL. - Other labs (to be added): - C-reactive protein (CRP) - Erythrocyte sedimentation rate (ESR) - Hemoglobin A1c 5.5 - Magnesium-2.2 - Vitamins B1- and D- 45.5 - Diagnostics: - Pending CT scan of the brain for evaluation of headaches Plan Follow-up evaluation of [id number] headaches shows resolution without the need for continued medication. Labs and imaging studies have been ordered to rule out residual or secondary issues. Management also includes a significant focus on addressing patient's depression through psychiatric consultation. Incorporating the results of ordered diagnostic tests, the treatment regime will be adjusted as needed. Collaboration with psychiatric services will ensure treatments for the patient's mental health align with his needs, considering both pharmacologic approaches and ongoing psychotherapy as part of the holistic care plan. Patient was informed and verbally consented to the use of an ambient scribe for clinic note documentation during this visit. Discussion Notes In our visit, we discussed the resolution of the patient's [id number] headaches and the necessity of completing a CT scan to further assess potential intracranial problems. We covered his current state of depression, clarifying the nature of psychiatric referrals, and the possible interventions offered, underscoring the importance of such engagement amid ongoing workplace challenges. While the patient expressed concerns about beginning medication like SSRIs, we ensured the availability of immediate support and understanding of side effects if such medication becomes necessary. Follow-up entails monitoring any psychiatric interventions and headache recurrence or resolution, with instructions on accessing lab results and our office for potential medication side effects. Patient Instructions - Follow up with the scheduled CT scan of the brain. - Expect lab results via the patient portal; check for updates. - Await a call from the psychiatric department regarding a consultation. - Return for a follow-up in one month or sooner if symptoms worsen. - Continue current medications, including atorvastatin and vitamin D supplementation. - Monitor for any reoccurrence of headaches, and reach out if these or any new symptoms arise. - Implement stress-reducing techniques, considering current occupational stress. - For any emergent symptoms or mental health concerns, contact emergency servi anitra or go to the nearest clinic.
[2024-08-08 15:38] VITALS: BP 130/72; PULSE 69; TEMP 36.2; O2SAT 97; BMI 30.6
--- OUTSIDE RECORDS SUMMARY | 2024-08-08 19:07 | XMS_ITS | Data Portability ---
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 Plan of Treatment Reminders Order Date Submit Date Provider Last Modified By Organization Details Last Modified Time Details Appointments None recorded. Lab CBC 2016 017 [facility], [address] [place], [address], 7 11:50:[address] referral - rest SSCP and diaphoresi s, with Left arm parasthesi as, lasting 90 mins. 5 days agoresolve d on own. Never seen by MD until today. feels well, no symptoms.N o evidence of MT on rest ECG done todayRisk factor is 51 year old male with FH; adopted-kn own biologic mother had an MT in her 50's.reaso nable story, deserves workup ASA 81refer Hamp CVA, likely nuclear stress test 2017 018 KASHMIR Not available 8 19:49:29 Procedures None recorded. Surgeries None recorded. Imaging electrocar diogram 2017 018 [facility], [address] [place], [address], 8 12:59:36 XR, chest 2016 017 [facility] (Imaging), [address], [place], [address], 03/22/201 7 09:17:16 Medication Orders omeprazole 40 mg capsule,de layed release 2017 018 [id number], [address] [place], [address], 8 15:27:34 azithromyc in 250 mg tablet 2016 017 [facility], [address] [place], [address], 8 14:42:33 Qvar 40 mcg/actuat ion Metered Aerosol oral inhaler 2016 017 [facility], [address] [place], [address], 8 14:42:43 Patient TargetsNo targets recorded. Patient InstructionsNo instructions recorded. Reason for Referral Office Services Manager Referral for Ch est pain rest SSCP and diaphoresis, with Left arm parasthesias, lasting 90 mins. 5 days agoresolved on own. Never seen by MD until today. feels well, no symptoms.No evidence of MT on rest ECG done todayRisk factor is 51 year old male with FH; adopted- known biologic mother had an MT in her 50's.reasonable story, deserves workup ASA 81refer Hamp CVA, likely nuclear stress test Referring Physician: Gavin Tate, Family Medicine, Encounter Date: 07/08/2017 Results Created Date Observation Date Name Description Value Unit Range Abnormal Flag Note LastModifiedBy Organization Detail LastModifiedTime 09/02/19 17 09/01/2016 CBC WBC 6.3 K/? ? ?L 4.2-9. 1 Not Available [address], [address], 09/01/2016 11:50:46 09/02/19 17 09/01/2016 CBC RBC 4.55 M/? ? ?L 4.63-6 .08 low Not Available [address], [address], 09/01/2016 11:50:46 09/02/19 17 09/01/2016 CBC HGB 14.4 g/dL 13.7-1 7.5 Not Available [address], [address], 09/01/2016 11:50:46 09/02/19 17 09/01/2016 CBC HCT 43.4 % 40.1-5 1.0 Not Available [address], [address], 09/01/2016 11:50:46 09/02/19 17 09/01/2016 CBC MCV 95.4 ? ? ?L 79.0-9 2.2 high Not Available [address], [address], 09/01/2016 11:50:46 09/02/19 17 09/01/2016 CBC MCH 31.6 pg 25.7-3 2.2 Not Available [address], [address], 09/01/2016 11:50:46 09/02/19 17 09/01/2016 CBC MCHC 33.2 g/dL 32.3-3 6.5 Not Available [address], [address], 09/01/2016 11:50:46 09/02/19 17 09/01/2016 CBC plt 113.0 K/? ? ?L 163.0- 337.0 low JOSEPHINE=V erifi ed by Cecile farley Not Available [address], [address], 09/01/2016 11:50:46 09/02/19 17 09/01/2016 CBC MPV 12.3 9.4-12 .4 Not Available [address], [address], 09/01/2016 11:50:46 09/02/19 17 09/01/2016 CBC neut% 55.5 % 34.0-6 7.9 Not Available [address], [address], 09/01/2016 11:50:46 09/02/19 17 09/01/2016 CBC neut# 3.5 1.8-5. 4 Not Available [address], [address], 09/01/2016 11:50:46 09/02/19 17 09/01/2016 CBC lymph % 26.0 % 21.8-5 3.1 Not Available [address], [address], 09/01/2016 11:50:46 09/02/19 17 09/01/2016 CBC lymph # 1.6 K/? ? ?L 1.3-3. 6 Not Available [address], [address], 09/01/2016 11:50:46 09/02/19 17 09/01/2016 CBC mono% 14.4 % 5.3-12 .2 high Not Available [address], [address], 09/01/2016 11:50:46 09/02/19 17 09/01/2016 CBC mono# 0.9 0.3-0. 8 high Not Available [address], [address], 09/01/2016 11:50:46 09/02/19 17 09/01/2016 CBC eo% 3.5 % 0.8-7. 0 Not Available [address], [address], 09/01/2016 11:50:46 09/02/19 17 09/01/2016 CBC eo# 0.2 0.0-0. 5 Not Available [address], [address], 09/01/2016 11:50:46 09/02/19 17 09/01/2016 CBC baso% 0.6 % 0.2-1. 2 Not Available [address], [address], 09/01/2016 11:50:46 09/02/19 17 09/01/2016 CBC baso# 0.0 0.0-0. 1 Not Available [address], [address], 09/01/2016 11:50:46 09/02/19 17 09/01/2016 CBC RDW-CV 12.6 % 11.6-1 4.4 Not Available [address], [address], 09/01/2016 11:50:46 07/08/19 18 07/08/2017 elect paris patelgr am Result Not Available [address], [address], 07/08/2017 14:52:47 08/30/19 18 08/29/2017 HbA1c (hemo globi n A1c), blood hemoglobin A1C 5.2 % 4.3-5. 8 Not Available [facility] (Outpatient) [address] [place] [address], [address], 08/29/2017 11:22:20 08/30/19 18 08/29/2017 CMP, serum or plasm a sodium 141 mmol/ L 133-14 6 Not Available [facility] (Outpatient) [address] [place] [address], [address], 08/29/2017 11:45:54 08/30/19 18 08/29/2017 CMP, serum or plasm a potassium 4.4 mmol/ L 3.3-5. 1 Not Available [facility] (Outpatient) [address] [place] [address], [address], 08/29/2017 11:45:54 08/30/19 18 08/29/2017 CMP, serum or plasm a chloride 100 mmol/ L 96-108 Not Available [facility] (Outpatient) [address] [place] [address], [address], 08/29/2017 11:45:54 08/30/19 18 08/29/2017 CMP, serum or plasm a CO2 27 mmol/ L 21-35 Not Available [facility] (Outpatient) [address] [place], [address], 08/29/2017 11:45:54 08/30/19 18 08/29/2017 CMP, serum or plasm a BUN 18 mg/dL 6-19 Not Available [facility] (Outpatient) [address] [place], [address], 08/29/2017 11:45:54 08/30/19 18 08/29/2017 CMP, serum or plasm a creatinine 0.90 mg/dL 0.5-1. 5 Not Available [facility] (Outpatient) [address] [place], [address], 08/29/2017 11:45:54 08/30/19 18 08/29/2017 CMP, serum or plasm a glucose 88 mg/dL 70-99 Not Available [facility] (Outpatient) [address] [place], [address], 08/29/2017 11:45:54 08/30/19 18 08/29/2017 CMP, serum or plasm a albumin 4.5 g/dL 3.9-4. 8 Not Available [facility] (Outpatient) [address] [place], [address], 08/29/2017 11:45:54 08/30/19 18 08/29/2017 CMP, serum or plasm a total protein 7.7 g/dL 6.5-8. 0 Not Available [facility] (Outpatient) [address] [place], [address], 08/29/2017 11:45:54 08/30/19 18 08/29/2017 CMP, serum or plasm a calcium 9.8 mg/dL 8.4-10 .3 Not Available [facility] (Outpatient) [address] [place], [address], 08/29/2017 11:45:54 08/30/19 18 08/29/2017 CMP, serum or plasm a alkaline phosphatase 78 U/L 39-117 Not Available [facility] (Outpatient) [address] [place] [address], [address], 08/29/2017 11:45:54 08/30/19 18 08/29/2017 CMP, serum or plasm a total bilirubin 0.6 mg/dL 0.0-1. 2 Not Available [facility] (Outpatient) [address] [place] [address], [address], 08/29/2017 11:45:54 08/30/19 18 08/29/2017 CMP, serum or plasm a AST 29 U/L 0-37 Not Available [facility] (Outpatient) [address] [place] [address], [address], 08/29/2017 11:45:54 08/30/19 18 08/29/2017 CMP, serum or plasm a ALT 37 U/L 0-40 Not Available [facility] (Outpatient) [address] [place] [address], [address], 08/29/2017 11:45:54 08/30/19 18 08/29/2017 CMP, serum or plasm a globulin 3.2 g/dL 1-4.8 Not Available [facility] (Outpatient) [address] [place] [address], [address], 08/29/2017 11:45:54 08/30/19 18 08/29/2017 CMP, serum or plasm a eGFR 99 mL/mi n/1.7 3m2 >59 If patie nt is black , multi ply resul t by 1.159 . The eGFR calcu latrowan n has gallo ed from the MDRD equat ion to the CKD-E PI equat ion as of August 16, 2017. Not Available [facility] (Outpatient) [address] [place] [address], [address], 08/29/2017 11:45:54 08/30/19 18 08/29/2017 CMP, serum or plasm a anion gap 18 mmol/ L 10-20 Not Available [facility] (Outpatient) [address] [place] [address], [address], 08/29/2017 11:45:54 08/30/19 18 08/29/2017 TSH, serum or plasm a TSH 4.83 uIU/m L 0.27-4 .20 high Not Available [facility] (Outpatient) [address] [place] [address], [address], 08/29/2017 11:45:56 08/30/19 18 08/29/2017 CBC WBC 6.48 K/uL 3.40-1 1.20 Not Available [facility] (Outpatient) [address] [place] [address], [address], 08/29/2017 11:46:35 08/30/19 18 08/29/2017 CBC RBC 4.67 M/uL 4.50-5 .50 Not Available [facility] (Outpatient) [address] [place] [address], [address], 08/29/2017 11:46:35 08/30/19 18 08/29/2017 CBC HGB 14.7 g/dL 13.0-1 7.0 Not Available [facility] (Outpatient) [address] [place] [address], [address], 08/29/2017 11:46:35 08/30/19 18 08/29/2017 CBC HCT 43.2 % 40.0-5 1.0 Not Available [facility] (Outpatient) [address] [place] [address], [address], 08/29/2017 11:46:35 08/30/19 18 08/29/2017 CBC plt 93 K/uL 130-40 0 low Small plate let clump s prese nt. Not Available [facility] (Outpatient) [address] [place] [address], [address], 08/29/2017 11:46:35 08/30/19 18 08/29/2017 CBC MCV 92.5 fL 79.0-9 8.0 Not Available [facility] (Outpatient) [address] [place], [address], 08/29/2017 11:46:35 08/30/19 18 08/29/2017 CBC MCH 31.5 pg 27.0-3 4.8 Not Available [facility] (Outpatient) [address] [place] [address], [address], 08/29/2017 11:46:35 08/30/19 18 08/29/2017 CBC MCHC 34.0 g/dL 31.5-3 6.0 Not Available [facility] (Outpatient) [address] [place] [address], [address], 08/29/2017 11:46:35 08/30/19 18 08/29/2017 CBC RDW 12.0 % 10.8-1 4.6 Not Available [facility] (Outpatient) [address] [place] [address], [address], 08/29/2017 11:46:35 08/30/19 18 08/29/2017 CBC MPV 12.5 fL 9.4-12 .4 high Not Available [facility] (Outpatient) [address] [place] [address], [address], 08/29/2017 11:46:35 08/30/19 18 08/29/2017 CBC NRBC 0.00 /100_ WBCs Not Available [facility] (Outpatient) [address] [place] [address], [address], 08/29/2017 11:46:35 08/30/19 18 08/29/2017 CBC absolute NRBC 0.00 K/uL Not Available [facility] (Outpatient) [address] [place] [address], [address], 08/29/2017 11:46:35 08/30/19 18 08/29/2017 lipid panel , blood HDL 41 mg/dL Inter preta tion: Risk Level Males Decre ased >45 mg/dL [place] 40-45 mg/dL Incre ased <40 mg/dL Not Available [facility] (Outpatient) [address] [place], [address], 08/29/2017 12:07:21 08/30/19 18 08/29/2017 lipid panel , blood cholesterol 225 mg/dL 0-240 Not Available [facility] (Outpatient) [address] [place], [address], 08/29/2017 12:07:21 08/30/19 18 08/29/2017 lipid panel , blood triglyceride s 208 mg/dL 30-160 high Not Available [facility] (Outpatient) [address] [place] [address], [address], 08/29/2017 12:07:21 08/30/19 18 08/29/2017 lipid panel , blood LDL 142 mg/dL 50-129 high LDL level s in terms of risk for coron deanne heart disea se: <100 mg/dL : Optim al 100-1 29 mg/dL : Near or above optim al 130-1 59 mg/dL : Borde rline high 160-1 89 mg/dL : High >190 mg/dL : Very High Not Available [facility] (Outpatient) [address] [place], [address], 08/29/2017 12:07:21 08/30/19 18 08/29/2017 lipid panel , blood cardiac risk ratio 5.5 3.4-5. 0 high Not Available [facility] (Outpatient) [address] [place], [address], 08/29/2017 12:07:21 08/30/19 18 08/29/2017 T4, free, serum free T4 1.2 NG/dL 0.9-1. 7 Not Available [facility] (Outpatient) [address] [place], [address], 08/29/2017 12:09:44 10/10/19 22 10/09/2021 SARS- COV-2 RNA (COVI D-19) , QUALI TATIV E NAAT sarscov2 NEGATI VE negati ve normal This test has been autho rized by the FDA under an Emerg ency Use Autho rizat ion(E UA) for you by autho rized labs. Not Available [facility] [address] [facility], [place], [address], 10/09/2021 14:28:13 09/02/19 17 09/01/2016 XR, chest [...] signed Readin g Physic mirella: Chirag arcos [facility] (Imaging) [address], [place], [address], 2016 14:51:17 07/08/19 18 elect rocar diogr am No observ ation record ed. [email or web address] Not Available 07/08 15:06:19 08/31/19 18 08/29/2017 NM, myoca rdial perfu martha scan No observ ation record ed. [email or web address] [address], [place], [address], 08/30/2017 10:28:08 08/31/19 18 08/29/2017 US, echoc ardio gram, trans thora cic, compl ete No observ ation record ed. [email or web address] Not Available 08/30 15:52:19 Result Notes None recorded. Problems Name Problem SNOMED Code Status Onset Date Resolution Date Notes Provider Name and Address Organization Details Recorded Time Diverticulitis of colon 965637306 Active Gavin Tate MD [address] [place], [place] [address], [address], [facility] 6 10:22:50 Vitamin D deficiency 70866323 Active 2015 Gavin Tate MD [address] [place], [place] [address], [address], [facility] 6 13:31:04 Hypothyroidism 40476946 Active 2018 Toyin Troncoso [facility] 9 10:52:54 Problem Notes None recorded. Procedures Surgical History Date Name Laterality Status Provider Name and Address Organization Details Recorded Time 2 Payton - EGD completed Velasquez Cain MD [address] [place] [address], [phone], [facility] 10/12/2021 09:00:20 2 Payton - Colonoscopy completed Velasquez Cain MD [address] [place] [address], [phone], [facility] 10/12/2021 09:02:25 7 Colonoscopy with biopsy completed Ever Carias NP [address] [place] [address], [address], [facility] 07/16/2016 09:06:41 7 Carlos - Colonoscopy completed Marco Antonio Gonzalez [address] [place] [address], [address], [facility] 07/09/2016 10:28:15 Imaging Results Imaging Date Name Status LastModified by Organization Details LastModified Time 09/01/2016 XR, chest completed [facility] (Imaging) [address], [place], [address], 2016 14:51:17 07/08/2017 electrocardiogram completed [facility] Informa tion not available 07/08/2017 15:06:19 08/29/2017 NM, myocardial perfusion scan completed [facility] [address], [place], [address], 08/30/2017 10:28:08 08/29/2017 US, echocardiogram, transthoracic, complete completed Information not available 08/30/2017 15:52:19 Procedure Notes None recorded. Medical Equipment None Reported. Allergies Allergen ID Allergen Name Allergen Category Reaction Reaction Severity Criticality Documentation Date Start Date Code Code System Note Provider Name and Address Organization Details Recorded Time 586047 ampicilli n medicatio n rash Not available Not available 09/19/2014 733 RxNorm Didi Dalton null, [facility] 5 09:22:52 32893 amoxicill in medicatio n rash Not available Not available 11/09/2011 723 RxNorm Soraya Delaney [facility], [facility] 2 10:26:37 [address]3984 Keflex medicatio n rash Not available Not available 11/09/2011 75940 7 RxNorm Soraya Delaney [employer] null, [facility] 2 10:26:37 Medications Name Sig [...] Details Last Updated DateTime 7 374.65 cm 92733.6 6 g 6.1 kg/m2 98.8 [degF] 96 % 96 % 93 /min 138 mm[Hg] 90 mm[Hg] Estela Haas [facility] 7 15:10:55 Date Recorded Body height Body weight Body mass index (BMI) Heart rate Body temperature Oxygen saturation Oxygen saturation in Arterial blood by Pulse oximetry Systolic blood pressure Diastolic blood pressure Provider Name and Address Organization Details Last Updated DateTime 7 172.72 cm 23771.5 9 g 28.1 kg/m2 64 /min 98 [degF] 96 % 96 % 138 mm[Hg] 84 mm[Hg] Wil echols LPN [facility] 7 08:12:39 Date Recorded Body height Body mass index (BMI) Body weight Body temperature Oxygen saturation Oxygen saturation in Arterial blood by Pulse oximetry Heart rate Systolic blood pressure Diastolic blood pressure Provider Name and Address Organization Details Last Updated DateTime 8 172.72 cm 28.6 kg/m2 17131.3 7 g 98.9 [degF] 97 % 97 % 97 /min 118 mm[Hg] 90 mm[Hg] ALYSON Fermin [facility] 8 14:46:18 Date Recorded Body height Body mass index (BMI) Body weight Heart rate Systolic blood pressure Diastolic blood pressure Provider Name and Address Organization Details Last Updated DateTime 8 172.72 cm 29.4 kg/m2 78384.0 3 g 86 /min 126 mm[Hg] 82 mm[Hg] Mei Schwartz LPN [facility] 8 15:45:03 Social History Question Answer Notes LastModified by Organizat ion Details LastModified Time Tobacco Smoking Status Former Smoker IZABELLA Orr, [facility] 11/09/2011 10:26:37 What Is Your [...] . known biolog ic mother had an MT in her 50's. No maternal sig medical hx. except diabetes. esoph CA. Medical History No medical history recorded. Immunizations Vaccine Type Date Status Note Provider Nam e and Address Organization Details Recorded Time Tdap 2 completed Not Available [facility] 06/30/2019 02:27:39 pneumococcal polysaccharide PPV23 2 completed Not Available [facility] 06/30/2019 02:14:55 influenza, unspecified formulation 6 completed Wil Patel LPN [facility] 03/05/2016 18:01:40 Past Encounters Encounter ID Performer Location Encounter Start Date Encounter Closed Date Diagnosis/Indication Diagnosis SNOMED-CT Code Diagnosis ICD10 Code Diagnosis Note [id number] [facility], OFFICE [address] [place] [address] 11/09/2011 09:55:14 11/09/2011 10:58:33 [id number] Autumn Madrid [facility], OFFICE [address] [place] [address] 11/14/2012 09:57:58 11/14/2012 11:01:15 [id number] [facility], OFFICE [address] [place] [address] 12/19/2012 09:13:47 12/19/2012 10:52:13 [id number] Madelyn Veronica PA-C [facility], OFFICE [address] [place] [address] 09/19/2014 09:13:09 09/19/2014 09:47:33 Cough 72537304 push fluids, humidify air. mucinex, tea with honey. probiotics encouraged . follow up if symptoms persist or worsen. 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 [address] [place] [address] 01/08/2015 15:58:00 01/09/2015 12:33:20 Acquired trigger finger [id number] , 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 agrees to see Jose Rafael Childs to discuss surgical options. [id number] Susy Iglesias MD , [facility] OFFICE [address] [place] [address] 10/14/2015 13:32:03 10/14/2015 14:03:05 Anterior knee pain 135643038 M25.569 M25.562 since a fall 2 y a , worsened lately after vigorous exersises, gael possible Fx of patella, will FU aftwr XR for definite desision about treatment options [id number] Rosibel Meza , [facility]ICE [address] [place] [address] 10/21/2015 09:31:24 10/21/2015 15:24:34 Diverticulitis of colon 606016237 K57.32 day two of antibiotis c, I reassurred him that his abd pain with sudden movements should remit over next 4 days. dz cause of anatomy, recurrence , signs of and usp treatment discussed. he may likely have another attack, but he is well aware of how it will present. Q's answered. i informed him that study has disproven the old dietary restrictio ns. 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 HP neg agrees to complete a month PPI or double dose ranitidine Hernia of anterior abdominal wall 559992864 K43.9 mild in size, progressiv e, upper midline ventral hernias, inevitable progressio n self reduction, ER indication s discussed. agrees to see Jose Rafael Childs to discuss surgical options. [id number] Gavin Tate MD , [facility] [place] [address] [place] [address] 03/05/2016 17:42:59 03/08/2016 10:09:56 Diverticulitis of colon 171339324 K57.32 tightness llq, soft stool, not movement or meal related, no fever. is tuesday so concerned. appears to be same as his presentati on s in 10/2015, will retreat. he will take probiotics . prior Pt presents for 10/19/15 [facility] and 10/20/15 [facility] f/u-LLQ pain and nausea, no diarrhea, no fever.. Had U/A, normal, had CT done at [facility], turned out to be diverticul itis. Given antibiotic s and pain meds Screening for malignant neoplasm of colon 679245549 Z12.11 Referral for a DIRECT booked colonoscop y. This patient is a healthy ASA Class 1 or 2 patient (only mild systemic disease), or a STABLE, well controlled insulin dependent diabetic. They do not have serious cardiac disease ie MT/angiopl asty within 1 year, symptomati c CHF; renal failure with CKD 4 or 5; take Coumadin, Plavix, Aggrenox, etc. 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 HP neg agrees to complete a month PPI or double dose ranitidine Hernia of anterior abdominal wall 617932396 K43.9 mild in size, progressiv e, upper midline ventral hernias, inevitable progressio n self reduction, ER indication s discussed. agrees to see Jose Rafael Childs to discuss surgical options. [id number] Gavin Tate MD , [facility] [place] [address] [place] [address] 04/21/2016 13:58:01 04/21/2016 14:36:42 Adult health examination 510167423 Z00.00 see Risk Assessment and Lifestyle Change Counseling section above Counseling [id number] Z71 .9 Diverticul itis of colon [id number] K57.32 04/21/16 again reports he had recent [...] of anatomy, recurrence , signs of and usp treatment discussed. he may likely have another attack, but he is well aware of how it will present. Q's answered. i informed him that study has disproven the old dietary restrictio ns. Anterior knee pain 60838 3006 M25.569 M25.562 historical . since a fall 2 y a , worsened lately after vigorous exercises, gael possible Fx of patella, will FU after XR for definite decision about treatment options Pain in toe [id number] M7 9.676 historical . L>>R due to OA referred Dr Abdi Acquired t [employer] finger [id number] M65.30 resolved with OT. left pinky locks up in AM seen Josi [place] Gastritis [id number] K29.70 prior- appears to have recurred 10/2015, will retreat a month. HP neg agrees to complete a month PPI or double dose ranitidine Hernia of anterior abdominal wall [id number] K43.9 stable with valsalva. mild in size, progressiv e, upper midline ventral hernias, inevitable progressio n self reduction, ER indication s discussed. agrees to see Jose Rafael Childs to discuss surgical options. Family his tory of diabetes mellitus [id number] Z83.3 [id number] Velasquez Oleary MD , [facility], [address] [place] [address] 05/30/2016 10:43:30 05/30/2016 11:36:23 Diverticulitis [id number] K57.92 Acquired t [employer] finger [id number] M65.30 left pinky locks up in AM seen Josi Newman Screening for malignant neoplasm of colon [id number] Z12.11 Referral for a DIRECT booked colonoscop y. This patient is a healthy ASA Class 1 or 2 patient (only mild systemic disease), or a STABLE, well controlled insulin dependent diabetic. They do not have serious cardiac disease ie MT/angiopl asty within 1 year, symptomati c CHF; renal failure with CKD 4 or 5; take Coumadin, Plavix, Aggrenox, etc. Pain in toe 791240207 M7 9.676 historical .L>>R due to OA referred Dr Abdi Gastritis [id number] K29.70 historical .appears to have recurred 10/2015, will retreat a month. HP neg agrees to complete a month PPI or double dose ranitidine Diverticul itis of colon [id number] K57.32 tightness llq, soft stool, not movement or meal related, no fever. is tuesday so concerned. appears to be same as his presentati on s in 10/2015, will retreat. he will take probiotics . prior Pt presents for 10/19/15 [facility] and 10/20/15 [facility] f/u-LLQ pain and nausea, no diarrhea, no fever.. Had U/A, normal, had CT done at [facility], turned out to be diverticul itis. Given antibiotic s and pain meds Hernia of anterior abdominal wall 238616889 K43.9 mild in size, progressiv e, upper midline ventral hernias, inevitable progressio n self reduction, ER indication s discussed. agrees to see Jose Rafael Childs to discuss surgical options. Anterior knee pain 65478 3006 M25.569 M25.562 historical .since a fall 2 y a , worsened lately after vigorous exersises, gael possible Fx of patella, will FU aftwr XR for definite desision about treatment options [id number] Marco Antonio Carlos [facility] [address] [place] [address] 07/09/2016 09:12:17 07/09/2016 13:48:18 [id number] Josie Villarreal MD , [facility] [address] [place] [address] 07/30/2016 15:02:22 07/30/2016 15:28:50 Acute upper respiratory infection 14218776 J06.9 Seems to have cleared one URI, [...] or failure to resolve in 2-4 weeks. [id number] Gavin Tate MD , [facility] [address] [address] [place] [address] 09/01/2016 07:52:21 09/01/2016 08:32:31 Cough [id number] R05 09/01/16his myalgias , bedbound 2 days of influenza like syndrome of 07/30/16 resolvedst ill no feverspleu ritic cough talisha in AM, productive , doeHR elevated, noted in bedno chest pressure.e xam is benign no evid of sig CP dz.likely a second infection which is clearing.x ray, bloodwork to be sure [id number] Gavin Tate MD , [facility] [address] [place] [address] 07/08/2017 14:28:11 07/08/2017 15:31:21 Chest pain 25988013 R07.9 rest SSCP and diaphoresi s, with Left arm parasthesi as, lasting 90 mins. 5 days agoresolve d on own. Never seen by MD until today. feels well, no symptoms. No evidence of MT on rest ECG done today Risk factor is 51 year old male with FH;adopted -known biologic mother had an MT in her 50's.deser ves workupASA 81refer Hamp CVA, likely nuclearstr ess test Gastroesop hageal reflux disease 041272310 K21.9 caffeine drinking againfaile d ranitidine for this condition in the pastomep alleviates CP even when taken every few days, will renew Palpitations 88739287 R0 0.2 from decades ago [id number] Gavin Tate MD , [facility] [address] [place] [address] 08/30/2017 15:34:07 09/05/2017 13:27:08 Hypothyroidism 76351749 E03.9 bord high 2018we discussed need to follow, ordered for mid 2018 Chest pain 47622402 R07. 9 card consulted, we discussed results of echo and thallium both negative. Chest pain is not anginal therefore. end of workup rest SSCP and diaphoresi s, with Left arm parasthesi as, lasting 90 mins. 5 days agoresolve d on own. Never seen by MD until today. feels well, no symptoms. No evidence of MT on rest ECG done today Risk factor is 51 year old male with FH;adopted -known biologic mother had an MT in her 50's.deser ves workupASA 81refer Hamp CVA, likely nuclearstr ess test Gastroesop hageal reflux disease 216131960 K21.9 caffeine drinking againfaile d ranitidine for this condition in the pastomep alleviates CP even when taken every few days, will renew Palpitations 33084806 R0 0.2 from decades ago Pityriasis rosea 0602021 4 L42 anterior chestovate M-Papules are aligned with skin folds with herald patch over left anterior shoulderas symptomati cno need to treatthis is early stagei discussed that he can expect peeling as lesions mature over many weeks.caus e course of and self limited benign nature discussed [id number] Edin Bansal RN [facility], [address] [address] 10/12/2021 07:01:50 10/12/2021 13:41:37 Health Concerns Section Related Observation LastModified by Organization Detai ls LastModified Time None Recorded Concern Status LastModified by Organization Details LastModified Time None Recorded Advance Directives Directive None Recorded Payers Encounter Date Sequence Insurance Name Policy Number Policy Gould Covered Member ID Gould Member ID Guarantor Name 07/30/2016 1 [employer] [employer] 112 Nolan Billy [id number] Nolan Billy 09/01/2016 1 [employer] [employer] 112 Nolan Billy [id number] Nolan Billy 07/08/2017 1 [employer] [employer] 112 Nolan Billy [id number] Nolan Billy 08/30/2017 1 [place] [employer] 112 Nolan Billy [id number] Nolan Billy 10/12/2021 1 [place] [employer] 112 Nolan Billy [id number] Nolan Billy Notes Date Note Type Note [...] Co-workers all have colds Josie Villarreal MD [address] [place] [address], [phone], [facility] 08/02/2016 12:19:06 09/01/2016 text/html VMG URI Flu [...] Co-workers all have colds Gavin Tate MD [address] [place] [address], [phone], [facility] 09/01/2016 08:33:36
== END 2024-08-08 16:12 | disposition home or self-care (01) ==
LOC: HO.HMCSH 15:34
PROVIDERS: PCP Internal Medicine; Visit Provider Physician Assistant Medical
DX: F32.A Depression, unspecified (principal); R51.9 Headache, unspecified; E78.00 Pure hypercholesterolemia, unspecified; E55.9 Vitamin D deficiency, unspecified; Z91.09 Other allergy status, other than to drugs and biological substances

== ENCOUNTER 2024-08-24 08:40 | Outpatient (REF) | payer BC, SELFPAY ==
--- NOTE | ~2024-08-24 | CT_ITS ---
CLINICAL HISTORY: G44.309 - Post-traumatic headache, unspecified, not intractable CT head without contrast Comparison: None Findings: No intra-axial mass, midline shift, hydrocephalus, or acute hemorrhage. Mild diffuse cerebral volume loss. Mild degree of patchy low-density within the periventricular and subcortical white matter. There is no sinus or mastoid fluid. The orbits are within normal limits. No skull fracture. IMPRESSION: 1. No acute intracranial findings. This document has been electronically signed by: Evaristo Esteban MD on 08/24/2024 15:58:30
--- OUTSIDE RECORDS SUMMARY | 2024-08-24 08:54 | XMS_ITS | Data Portability ---
Author Organization [facility], , [facility] Address [address] [place] [address] Care Team Providers Care Mh Teacher Name Role Phone [facility] Home And Family Living Professor Assessment No assessment recorded. Plan of Treatment Reminders Order Date Submit Date Provider Last Modified By Organization Details Last Modified Time Details Appointments None recorded. Lab CBC 2016 017 [facility], [address] [place], [address], 7 11:50:[address] referral - rest SSCP and diaphoresi s, with Left arm parasthesi as, lasting 90 mins. 5 days agoresolve d on own. Never seen by MD until today. feels well, no symptoms.N o evidence of WY on rest ECG done todayRisk factor is 51 year old male with FH; adopted-kn own biologic mother had an WY in her 50's.reaso nable story, deserves workup ASA 81refer Hamp CVA, likely nuclear stress test 2017 018 KASHMIR Not available 8 19:49:29 Procedures None recorded. Surgeries None recorded. Imaging electrocar diogram 2017 018 [facility], [address] [place], [address], 8 12:59:36 XR, chest 2016 017 [facility] (Imaging), [address], [place], [address], 03/22/201 7 09:17:16 Medication Orders omeprazole 40 mg capsule,de layed release 2017 018 [id number], [address] [place], [address], 8 15:27:34 azithromyc in 250 mg tablet 2016 017 [facility], [address] [place], [address], 8 14:42:33 Qvar 40 mcg/actuat ion Metered Aerosol oral inhaler 2016 017 [facility] [employer], [address] [facility] [place], [address], 8 14:42:43 Patient TargetsNo targets recorded. Patient InstructionsNo instructions recorded. Reason for Referral Home And Family Living Professor Referral for Ch est pain rest SSCP and diaphoresis, with Left arm parasthesias, lasting 90 mins. 5 days agoresolved on own. Never seen by MD until today. feels well, no symptoms.No evidence of W[place] on rest ECG done todayRisk factor is 51 year old male with FH; adopted- known biologic mother had an WY in her 50's.reasonable story, deserves workup ASA 81refer Hamp CVA, likely nuclear stress test Referring Physician: Gavin Tate, Family Medicine, Encounter Date: 07/08/2017 Results Created Date Observation Date Name Description Value Unit Range Abnormal Flag Note LastModifiedBy Organization Detail LastModifiedTime 09/02/19 17 09/01/2016 CBC WBC 6.3 K/? ? ?L 4.2-9. 1 Not Available [address], [address], 09/01/2016 11:50:46 09/02/19 17 09/01/2016 CBC RBC 4.55 M/? ? ?L 4.63-6 .08 low Not Available [address], [address], 09/01/2016 11:50:46 09/02/19 17 09/01/2016 CBC HGB 14.4 g/dL 13.7-1 7.5 Not Available [address], [address], 09/01/2016 11:50:46 09/02/19 17 09/01/2016 CBC HCT 43.4 % 40.1-5 1.0 Not Available [address], [address], 09/01/2016 11:50:46 09/02/19 17 09/01/2016 CBC MCV 95.4 ? ? ?L 79.0-9 2.2 high Not Available [address], [address], 09/01/2016 11:50:46 09/02/19 17 09/01/2016 CBC MCH 31.6 pg 25.7-3 2.2 Not Available [address], [address], 09/01/2016 11:50:46 09/02/19 17 09/01/2016 CBC MCHC 33.2 g/dL 32.3-3 6.5 Not Available [address], [address], 09/01/2016 11:50:46 09/02/19 17 09/01/2016 CBC plt 113.0 K/? ? ?L 163.0- 337.0 low JOSEPHINE=V erifi ed by Cecile farley Not Available [address], [address], 09/01/2016 11:50:46 09/02/19 17 09/01/2016 CBC MPV 12.3 9.4-12 .4 Not Available [address], [address], 09/01/2016 11:50:46 09/02/19 17 09/01/2016 CBC neut% 55.5 % 34.0-6 7.9 Not Available [address], [address], 09/01/2016 11:50:46 09/02/19 17 09/01/2016 CBC neut# 3.5 1.8-5. 4 Not Available [address], [address], 09/01/2016 11:50:46 09/02/19 17 09/01/2016 CBC lymph % 26.0 % 21.8-5 3.1 Not Available [address], [address], 09/01/2016 11:50:46 09/02/19 17 09/01/2016 CBC lymph # 1.6 K/? ? ?L 1.3-3. 6 Not Available [address], [address], 09/01/2016 11:50:46 09/02/19 17 09/01/2016 CBC mono% 14.4 % 5.3-12 .2 high Not Available [address], [address], 09/01/2016 11:50:46 09/02/19 17 09/01/2016 CBC mono# 0.9 0.3-0. 8 high Not Available [address], [address], 09/01/2016 11:50:46 09/02/19 17 09/01/2016 CBC eo% 3.5 % 0.8-7. 0 Not Available [address], [address], 09/01/2016 11:50:46 09/02/19 17 09/01/2016 CBC eo# 0.2 0.0-0. 5 Not Available [address], [address], 09/01/2016 11:50:46 09/02/19 17 09/01/2016 CBC baso% 0.6 % 0.2-1. 2 Not Available [address], [address], 09/01/2016 11:50:46 09/02/19 17 09/01/2016 CBC baso# 0.0 0.0-0. 1 Not Available [address], [address], 09/01/2016 11:50:46 09/02/19 17 09/01/2016 CBC RDW-CV 12.6 % 11.6-1 4.4 Not Available [address], [address], 09/01/2016 11:50:46 07/08/19 18 07/08/2017 elect paris patelgr am Result Not Available [address], [address], 07/08/2017 14:52:47 08/30/19 18 08/29/2017 HbA1c (hemo globi n A1c), blood hemoglobin A1C 5.2 % 4.3-5. 8 Not Available [facility] (Outpatient) [address] [place] [address], [address], 08/29/2017 11:22:20 08/30/19 18 08/29/2017 CMP, serum or plasm a sodium 141 mmol/ L 133-14 6 Not Available [facility] (Outpatient) [address] [place] [address], [address], 08/29/2017 11:45:54 08/30/19 18 08/29/2017 CMP, serum or plasm a potassium 4.4 mmol/ L 3.3-5. 1 Not Available [facility] (Outpatient) [address] [place] [address], [address], 08/29/2017 11:45:54 08/30/19 18 08/29/2017 CMP, serum or plasm a chloride 100 mmol/ L 96-108 Not Available [facility] (Outpatient) [address] [place] [address], [address], 08/29/2017 11:45:54 08/30/19 18 08/29/2017 CMP, serum or plasm a CO2 27 mmol/ L 21-35 Not Available [facility] (Outpatient) [address] [place], [address], 08/29/2017 11:45:54 08/30/19 18 08/29/2017 CMP, serum or plasm a BUN 18 mg/dL 6-19 Not Available [facility] (Outpatient) [address] [place], [address], 08/29/2017 11:45:54 08/30/19 18 08/29/2017 CMP, serum or plasm a creatinine 0.90 mg/dL 0.5-1. 5 Not Available [facility] (Outpatient) [address] [place], [address], 08/29/2017 11:45:54 08/30/19 18 08/29/2017 CMP, serum or plasm a glucose 88 mg/dL 70-99 Not Available [facility] (Outpatient) [address] [place], [address], 08/29/2017 11:45:54 08/30/19 18 08/29/2017 CMP, serum or plasm a albumin 4.5 g/dL 3.9-4. 8 Not Available [facility] (Outpatient) [address] [place], [address], 08/29/2017 11:45:54 08/30/19 18 08/29/2017 CMP, serum or plasm a total protein 7.7 g/dL 6.5-8. 0 Not Available [facility] (Outpatient) [address] [place], [address], 08/29/2017 11:45:54 08/30/19 18 08/29/2017 CMP, serum or plasm a calcium 9.8 mg/dL 8.4-10 .3 Not Available [facility] (Outpatient) [address] [place], [address], 08/29/2017 11:45:54 08/30/19 18 08/29/2017 CMP, serum or plasm a alkaline phosphatase 78 U/L 39-117 Not Available [facility] (Outpatient) [address] [place] [address], [address], 08/29/2017 11:45:54 08/30/19 18 08/29/2017 CMP, serum or plasm a total bilirubin 0.6 mg/dL 0.0-1. 2 Not Available [facility] (Outpatient) [address] [place] [address], [address], 08/29/2017 11:45:54 08/30/19 18 08/29/2017 CMP, serum or plasm a AST 29 U/L 0-37 Not Available [facility] (Outpatient) [address] [place] [address], [address], 08/29/2017 11:45:54 08/30/19 18 08/29/2017 CMP, serum or plasm a ALT 37 U/L 0-40 Not Available [facility] (Outpatient) [address] [place] [address], [address], 08/29/2017 11:45:54 08/30/19 18 08/29/2017 CMP, serum or plasm a globulin 3.2 g/dL 1-4.8 Not Available [facility] (Outpatient) [address] [place] [address], [address], 08/29/2017 11:45:54 08/30/19 18 08/29/2017 CMP, serum or plasm a eGFR 99 mL/mi n/1.7 3m2 >59 If patie nt is black , multi ply resul t by 1.159 . The eGFR calcu latrowan n has gallo ed from the MDRD equat ion to the CKD-E PI equat ion as of August 16, 2017. Not Available [facility] (Outpatient) [address] [place] [address], [address], 08/29/2017 11:45:54 08/30/19 18 08/29/2017 CMP, serum or plasm a anion gap 18 mmol/ L 10-20 Not Available [facility] (Outpatient) [address] [place] [address], [address], 08/29/2017 11:45:54 08/30/19 18 08/29/2017 TSH, serum or plasm a TSH 4.83 uIU/m L 0.27-4 .20 high Not Available [facility] (Outpatient) [address] [place] [address], [address], 08/29/2017 11:45:56 08/30/19 18 08/29/2017 CBC WBC 6.48 K/uL 3.40-1 1.20 Not Available [facility] (Outpatient) [address] [place] [address], [address], 08/29/2017 11:46:35 08/30/19 18 08/29/2017 CBC RBC 4.67 M/uL 4.50-5 .50 Not Available [facility] (Outpatient) [address] [place] [address], [address], 08/29/2017 11:46:35 08/30/19 18 08/29/2017 CBC HGB 14.7 g/dL 13.0-1 7.0 Not Available [facility] (Outpatient) [address] [place] [address], [address], 08/29/2017 11:46:35 08/30/19 18 08/29/2017 CBC HCT 43.2 % 40.0-5 1.0 Not Available [facility] (Outpatient) [address] [place] [address], [address], 08/29/2017 11:46:35 08/30/19 18 08/29/2017 CBC plt 93 K/uL 130-40 0 low Small plate let clump s prese nt. Not Available [facility] (Outpatient) [address] [place] [address], [address], 08/29/2017 11:46:35 08/30/19 18 08/29/2017 CBC MCV 92.5 fL 79.0-9 8.0 Not Available [facility] (Outpatient) [address] [place], [address], 08/29/2017 11:46:35 08/30/19 18 08/29/2017 CBC MCH 31.5 pg 27.0-3 4.8 Not Available [facility] (Outpatient) [address] [place] [address], [address], 08/29/2017 11:46:35 08/30/19 18 08/29/2017 CBC MCHC 34.0 g/dL 31.5-3 6.0 Not Available [facility] (Outpatient) [address] [place] [address], [address], 08/29/2017 11:46:35 08/30/19 18 08/29/2017 CBC RDW 12.0 % 10.8-1 4.6 Not Available [facility] (Outpatient) [address] [place] [address], [address], 08/29/2017 11:46:35 08/30/19 18 08/29/2017 CBC MPV 12.5 fL 9.4-12 .4 high Not Available [facility] (Outpatient) [address] [place] [address], [address], 08/29/2017 11:46:35 08/30/19 18 08/29/2017 CBC NRBC 0.00 /100_ WBCs Not Available [facility] (Out[facility]) [address] [place] [address], [address], 08/29/2017 11:46:35 08/30/19 18 08/29/2017 CBC absolute NRBC 0.00 K/uL Not Available [facility] (Outpatient) [address] [place] [address], [address], 08/29/2017 11:46:35 08/30/19 18 08/29/2017 lipid panel , blood HDL 41 mg/dL Inter preta tion: Risk Level Males Decre ased >45 mg/dL [place] ge 40-45 mg/dL Incre ased <40 mg/dL Not Available [facility] (Out[facility]) [address] [place], [address], 08/29/2017 12:07:21 08/30/19 18 08/29/2017 lipid panel , blood cholesterol 225 mg/dL 0-240 Not Available [facility] (Outpatient) [address] [place], [address], 08/29/2017 12:07:21 08/30/19 18 08/29/2017 lipid panel , blood triglyceride s 208 mg/dL 30-160 high Not Available [facility] (Outpatient) [address] [place] [address], [address], 08/29/2017 12:07:21 08/30/19 18 08/29/2017 lipid panel , blood LDL 142 mg/dL 50-129 high LDL level s in terms of risk for coron deanne heart disea se: <100 mg/dL : Optim al 100-1 29 mg/dL : Near or above optim al 130-1 59 mg/dL : Borde rline high 160-1 89 mg/dL : High >190 mg/dL : Very High Not Available [facility] (Outpatient) [address] [place], [address], 08/29/2017 12:07:21 08/30/19 18 08/29/2017 lipid panel , blood cardiac risk ratio 5.5 3.4-5. 0 high Not Available [facility] (Outpatient) [address] [place], [address], 08/29/2017 12:07:21 08/30/19 18 08/29/2017 T4, free, serum free T4 1.2 NG/dL 0.9-1. 7 Not Available [facility] (Outpatient) [address] [place], [address], 08/29/2017 12:09:44 10/10/19 22 10/09/2021 SARS- COV-2 RNA (COVI D-19) , QUALI TATIV E NAAT sarscov2 NEGATI VE negati ve normal This test has been autho rized by the FDA under an Emerg ency Use Autho rizat ion(E UA) for you by autho rized labs. Not Available [facility] [address] [facility], [place], [address], 10/09/2021 14:28:13 09/02/19 17 09/01/2016 XR, chest [...] signed Readin g Physic mirella: Chirag arcos [facility] (Imaging) [address], [place], [address], 2016 14:51:17 07/08/19 18 elect rocar diogr am No observ ation record ed. [email or web address] Not Available 07/08 15:06:19 08/31/19 18 08/29/2017 NM, myoca rdial perfu martha scan No observ ation record ed. [email or web address] [address], [place], [address], 08/30/2017 10:28:08 08/31/19 18 08/29/2017 US, echoc ardio gram, trans thora cic, compl ete No observ ation record ed. [email or web address] Not Available 08/30 15:52:19 Result Notes None recorded. Problems Name Problem SNOMED Code Status Onset Date Resolution Date Notes Provider Name and Address Organization Details Recorded Time Diverticulitis of colon 571293073 Active Gavin Tate MD [address] [place], [place] [address], [address], [facility] 6 10:22:50 Vitamin D deficiency 90037840 Active 2015 Gavin Tate MD [address] [place], [place] [address], [address], [facility] 6 13:31:04 Hypothyroidism 08946115 Active 2018 Toyin Troncoso [facility] 9 10:52:54 Problem Notes None recorded. Procedures Surgical History Date Name Laterality Status Provider Name and Address Organization Details Recorded Time 2 Payton - EGD completed Velasquez Cain MD [address] [place] [address], [phone], [facility] 10/12/2021 09:00:20 2 Payton - Colonoscopy completed Velasquez Cain MD [address] [place] [address], [phone], [facility] 10/12/2021 09:02:25 7 Colonoscopy with biopsy completed Ever Carias NP [address] [place] [address], [phone], [facility] 07/16/2016 09:06:41 7 Carlos - Colonoscopy completed Marco Antonio Gonzalez [address] [place] [address], [phone], [facility] 07/09/2016 10:28:15 Imaging Results Imaging Date Name Status LastModified by Organization Details LastModified Time 09/01/2016 XR, chest completed [facility] (Imaging) [address], [place], [address], 2016 14:51:17 07/08/2017 electrocardiogram completed [facility] Informa tion not available 07/08/2017 15:06:19 08/29/2017 NM, myocardial perfusion scan completed [facility] [address], [place], [address], 08/30/2017 10:28:08 08/29/2017 US, echocardiogram, transthoracic, complete completed Information not available 08/30/2017 15:52:19 Procedure Notes None recorded. Medical Equipment None Reported. Allergies Allergen ID Allergen Name Allergen Category Reaction Reaction Severity Criticality Documentation Date Start Date Code Code System Note Provider Name and Address Organization Details Recorded Time 177297 ampicilli n medicatio n rash Not available Not available 09/19/2014 733 RxNorm Didi Dalton null, [facility] 5 09:22:52 [address]8978 amoxicill in medicatio n rash Not available Not available 11/09/2011 723 RxNorm Soraya Delaney [facility] [employer], [facility] 2 10:26:37 42357 Keflex medicatio n rash Not available Not available 11/09/2011 [address]1441 7 RxNorm Soraya Delaney [employer] null, [facility] 2 10:26:37 Medications Name Sig Start Date [...] Details Last Updated DateTime 7 374.65 cm 28587.6 6 g 6.1 kg/m2 98.8 [degF] 96 % 96 % 93 /min 138 mm[Hg] 90 mm[Hg] Estela Haas [facility] 7 15:10:55 Date Recorded Body height Body weight Body mass index (BMI) Heart rate Body temperature Oxygen saturation Oxygen saturation in Arterial blood by Pulse oximetry Systolic blood pressure Diastolic blood pressure Provider Name and Address Organization Details Last Updated DateTime 7 172.72 cm 98983.5 9 g 28.1 kg/m2 64 /min 98 [degF] 96 % 96 % 138 mm[Hg] 84 mm[Hg] Wil echols LPN [facility] 7 08:12:39 Date Recorded Body height Body mass index (BMI) Body weight Body temperature Oxygen saturation Oxygen saturation in Arterial blood by Pulse oximetry Heart rate Systolic blood pressure Diastolic blood pressure Provider Name and Address Organization Details Last Updated DateTime 8 172.72 cm 28.6 kg/m2 63578.3 7 g 98.9 [degF] 97 % 97 % 97 /min 118 mm[Hg] 90 mm[Hg] ALYSON Fermin [facility] 8 14:46:18 Date Recorded Body height Body mass index (BMI) Body weight Heart rate Systolic blood pressure Diastolic blood pressure Provider Name and Address Organization Details Last Updated DateTime 8 172.72 cm 29.4 kg/m2 54321.0 3 g 86 /min 126 mm[Hg] 82 mm[Hg] Mei Schwartz LPN [facility] 8 15:45:03 Social History Question Answer Notes LastModified by Organizat ion Details LastModified Time Tobacco Smoking Status Former Smoker IZABELLA Orr, [facility] 11/09/2011 10:26:37 What Is Your Level Of [...] . known biolog ic mother had an W[place] in her 50's. No maternal sig medical hx. except diabetes. esoph [place]. Medical History No medical history recorded. Immunizations Vaccine Type Date Status Note Provider Nam e and Address Organization Details Recorded Time Tdap 2 completed Not Available [facility] 06/30/2019 02:27:39 pneumococcal polysaccharide PPV23 2 completed Not Available [facility] 06/30/2019 02:14:55 influenza, unspecified formulation 6 completed Wil Patel LPN [facility] 03/05/2016 18:01:40 Past Encounters Encounter ID Performer Location Encounter Start Date Encounter Closed Date Diagnosis/Indication Diagnosis SNOMED-CT Code Diagnosis ICD10 Code Diagnosis Note [id number] [facility], OFFICE [address] [place] [address] 11/09/2011 09:55:14 11/09/2011 10:58:33 [id number] Autumn Madrid [facility], OFFICE [address] [place] [address] 11/14/2012 09:57:58 11/14/2012 11:01:15 [id number] [facility], OFFICE [address] [place] [address] 12/19/2012 09:13:47 12/19/2012 10:52:13 [id number] Madelyn Veronica PA-C [facility], OFFICE [address] [place] [address] 09/19/2014 09:13:09 09/19/2014 09:47:33 Cough 42052280 push fluids, humidify air. mucinex, tea with honey. probiotics encouraged . follow up if symptoms persist or worsen. [id number] Alea Small [facility], OFFICE [address] [place] [address] 12/23/2014 08:08:07 12/23/2014 09:04:06 Pain in toe 475122104 Acquired t greenhouse transplanter finger 2212307 Gastritis 9933100 we ethan l discuss at upcoming [facility] Adult heal th examination [id number] see Risk Assessment and Lifestyle Change Counseling section above [id number] Josi Newman, OT Physical Therapy, [facility] [address] [place] [address] 01/08/2015 15:58:00 01/09/2015 12:33:20 Acquired trigger finger 7748479 [id number] , [facility] [address] [place] [address] 01/09/2015 08:34:39 01/09/2015 09:21:55 Adult health examination 746844148 see Risk Assessment and Lifestyle Change Counseling section above Counseling [id number] Pain in toe 963045911 L> >R due to OA referred Dr Abdi Acquired t greenhouse transplanter finger 0851140 left pinky locks up in AM seen Josi Newman Gastritis [id number] HP neg agrees to complete a month PPI or double dose ranitidine Hernia of anterior abdominal wall 836424488 mild in size, progressiv e, upper midline ventral hernias, inevitable progressio n self reduction, ER indication s discussed. agrees to see Jose Rafael Childs to discuss surgical options. [id number] Susy Iglesias MD , [facility] [address] [place] [address] 10/14/2015 13:32:03 10/14/2015 14:03:05 Anterior knee pain 690837703 M25.569 M25.562 since a fall 2 y a , worsened lately after vigorous exersises, gael possible Fx of patella, will FU aftwr XR for definite desision about treatment options [id number] Rosibel Meza , [facility] [address] [place] [address] 10/21/2015 09:31:24 10/21/2015 15:24:34 Diverticulitis of colon 210828432 K57.32 day two of antibiotis c, I reassurred him that his abd pain with sudden movements should remit over next 4 days. 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 he may likely have another attack, but he is well aware of how it will present. Q's answered. i informed him that study has disproven the old dietary restrictio ns. Anterior knee pain 20403 3006 M25.569 M25.562 since a fall 2 y a , worsened lately after vigorous exersises, gael possible Fx of patella, will FU aftwr XR for definite desision about treatment options Pain in toe 977788109 M7 9.676 L>>R due to OA referred Dr Abdi Acquired t greenhouse transplanter finger 1871119 M65.30 left pinky locks up in AM seen Josi Newman Gastritis 6383595 K29.70 appears to have recurred 10/2015, will retreat a month. HP neg agrees to complete a month PPI or double dose ranitidine Hernia of anterior abdominal wall 173113309 K43.9 mild in size, progressiv e, upper midline ventral hernias, inevitable progressio n self reduction, ER indication s discussed. agrees to see Jose Rafael Childs to discuss surgical options. [id number] Gavin Tate MD , [facility] [address] [place] [address] 03/05/2016 17:42:59 03/08/2016 10:09:56 Diverticulitis of colon 911112810 K57.32 tightness llq, soft stool, not movement or meal related, no fever. is tuesday so concerned. appears to be same as his presentati on s in 10/2015, will retreat. he will take probiotics . prior Pt presents for 10/19/15 [facility] and 10/20/15 [facility] f/u-LLQ pain and nausea, no diarrhea, no fever.. Had U/A, normal, had CT done at [facility], turned out to be diverticul itis. Given antibiotic s and pain meds Screening for malignant neoplasm of colon 321218967 Z12.11 Referral for a DIRECT booked colonoscop y. This patient is a healthy ASA Class 1 or 2 patient (only mild systemic disease), or a STABLE, well controlled insulin dependent diabetic. They do not have serious cardiac disease ie WY/angiopl asty within 1 year, symptomati c CHF; renal failure with CKD 4 or 5; take Coumadin, Plavix, Aggrenox, etc. Anterior knee pain 06969 3006 M25.569 M25.562 historical .since a fall 2 y a , worsened lately after vigorous exersises, gael possible Fx of patella, will FU aftwr XR for definite desision about treatment options Pain in toe 555952421 M7 9.676 historical .L>>R due to OA referred Dr Abdi Acquired t greenhouse transplanter finger 7483051 M65.30 left pinky locks up in AM seen Josi [place] Gastritis 5783604 K29.70 historical .appears to have recurred 10/2015, will retreat a month. HP neg agrees to complete a month PPI or double dose ranitidine Hernia of anterior abdominal wall 928166880 K43.9 mild in size, progressiv e, upper midline ventral hernias, inevitable progressio n self reduction, ER indication s discussed. agrees to see Jose Rafael Childs to discuss surgical options. 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 he may likely have another attack, but he is well aware of how it will present. Q's answered. i informed him that study has disproven the old dietary restrictio ns. Anterior knee pain [id number] 3006 M25.569 M25.562 historical . since a fall 2 y a , worsened lately after vigorous exercises, gael possible Fx of patella, will FU after XR for definite decision about treatment options Pain in toe 267919657 M7 9.676 historical . L>>R due to OA referred Dr Abdi Acquired t greenhouse transplanter finger 8299514 M65.30 resolved with OT. left pinky locks up in AM seen Josi [place] Gastritis 6103996 K29.70 prior- appears to have recurred 10/2015, will retreat a month. HP neg agrees to complete a month PPI or double dose ranitidine Hernia of anterior abdominal wall [id number] K43.9 stable with valsalva. mild in size, progressiv e, upper midline ventral hernias, inevitable progressio n self reduction, ER indication s discussed. agrees to see Jose Rafael Childs to discuss surgical options. Family his tory of diabetes mellitus [id number] Z83.3 [id number] Velasquez Oleary MD , [facility], [address] [place] [address] 05/30/2016 10:43:30 05/30/2016 11:36:23 Diverticulitis [id number] K57.92 Acquired t greenhouse transplanter finger 7701881 M65.30 left pinky locks up in AM seen Josi Newman Screening for malignant neoplasm of colon 755241986 Z12.11 Referral for a DIRECT booked colonoscop y. This patient is a healthy ASA Class 1 or 2 patient (only mild systemic disease), or a STABLE, well controlled insulin dependent diabetic. They do not have serious cardiac disease ie WY/angiopl asty within 1 year, symptomati c CHF; renal failure with CKD 4 or 5; take Coumadin, Plavix, Aggrenox, etc. Pain in toe 915180001 M7 9.676 historical .L>>R due to OA referred Dr Abdi Gastritis 4474028 K29.70 historical .appears to have recurred 10/2015, will retreat a month. HP neg agrees to complete a month PPI or double dose ranitidine Diverticul itis of colon 572172323 K57.32 tightness llq, soft stool, not movement or meal related, no fever. is tuesday so concerned. appears to be same as his presentati on s in 10/2015, will retreat. he will take probiotics . prior Pt presents for 10/19/15 [facility] and 10/20/15 [facility] f/u-LLQ pain and nausea, no diarrhea, no fever.. Had U/A, normal, had CT done at [facility], turned out to be diverticul itis. Given antibiotic s and pain meds Hernia of anterior abdominal wall [id number] K43.9 mild in size, progressiv e, upper midline ventral hernias, inevitable progressio n self reduction, ER indication s discussed. agrees to see Jose Rafael Childs to discuss surgical options. Anterior knee pain 56993 3006 M25.569 M25.562 historical .since a fall 2 y a , worsened lately after vigorous exersises, gael possible Fx of patella, will FU aftwr XR for definite desision about treatment options [id number] Marco Antonio Carlos [facility] [address] [place] [address] 07/09/2016 09:12:17 07/09/2016 13:48:18 [id number] Josie Villarreal MD , [facility] [address] [place] [address] 07/30/2016 15:02:22 07/30/2016 15:28:50 Acute upper respiratory infection 00922742 J06.9 Seems to have cleared one URI, [...] or failure to resolve in 2-4 weeks. [id number] Gavin Tate MD , [facility] [address] [place] [address] 09/01/2016 07:52:21 09/01/2016 08:32:31 Cough 73005888 R05 09/01/16his myalgias , bedbound 2 days of influenza like syndrome of 07/30/16 resolvedst ill no feverspleu ritic cough talisha in AM, productive , doeHR elevated, noted in bedno chest pressure.e xam is benign no evid of sig CP dz.likely a second infection which is clearing.x ray, bloodwork to be sure [id number] Gavin Tate MD , [facility] [address] [place] [address] 07/08/2017 14:28:11 07/08/2017 15:31:21 Chest pain 96159480 R07.9 rest SSCP and diaphoresi s, with Left arm parasthesi as, lasting 90 mins. 5 days agoresolve d on own. Never seen by MD until today. feels well, no symptoms. No evidence of WY on rest ECG done today Risk factor is 51 year old male with FH;adopted -known biologic mother had an WY in her 50's.deser ves workupASA 81refer Hamp CVA, likely nuclearstr ess test Gastroesop hageal reflux disease [id number] K21.9 caffeine drinking againfaile d ranitidine for this condition in the pastomep alleviates CP even when taken every few days, will renew Palpitations 76636374 R0 0.2 from decades ago [id number] Gavin Ttae MD , [facility] [address] [place] [address] 08/30/2017 15:34:07 09/05/2017 13:27:08 Hypothyroidism 45994201 E03.9 bord high 2018we discussed need to follow, ordered for mid 2018 Chest pain 82693123 R07. 9 card consulted, we discussed results of echo and thallium both negative. Chest pain is not anginal therefore. end of workup rest SSCP and diaphoresi s, with Left arm parasthesi as, lasting 90 mins. 5 days agoresolve d on own. Never seen by MD until today. feels well, no symptoms. No evidence of WY on rest ECG done today Risk factor is 51 year old male with FH;adopted -known biologic mother had an WY in her 50's.deser ves workupASA 81refer Hamp CVA, likely nuclearstr ess test Gastroesop hageal reflux disease 218880252 K21.9 caffeine drinking againfaile d ranitidine for this condition in the pastomep alleviates CP even when taken every few days, will renew Palpitations 60786291 R0 0.2 from decades ago Pityriasis rosea 4940244 4 L42 anterior chestovate M-Papules are aligned with skin folds with herald patch over left anterior shoulderas symptomati cno need to treatthis is early stagei discussed that he can expect peeling as lesions mature over many weeks.caus e course of and self limited benign nature discussed [id number] Edin Bansal RN [facility], [address] [address] 10/12/2021 07:01:50 10/12/2021 13:41:37 Health Concerns Section Related Observation LastModified by Organization Detai ls LastModified Time None Recorded Concern Status LastModified by Organization Details LastModified Time None Recorded Advance Directives Directive None Recorded Payers Encounter Date Sequence Insurance Name Policy Number Policy Gould Covered Member ID Gould Member ID Guarantor Name 07/30/2016 1 [facility]: [employer] 112 Nolan Billy [id number] Nolan Cervantes 09/01/2016 1 [facility]: [employer] 112 Nolan Billy [id number] Nolan Cervantes 07/08/2017 1 [employer]: [employer] 112 Nolan Billy [id number] Nolan Billy 08/30/2017 1 [place] [employer] 112 Nolan Billy [id number] Nolan Billy 10/12/2021 1 [place] [employer] 112 Nolan Billy [id number] Nolan Cervantes Notes Date Note Type Note Provider Name [...] Co-workers all have colds Josie Villarreal MD [address] [place] [address], [phone], [facility] 08/02/2016 12:19:06 09/01/2016 text/html [facility] URI Flu [...] Co-workers all have colds Gavin Tate MD [address] [place] [address], [phone], [facility] 09/01/2016 08:33:36
== END 2024-08-24 08:41 | disposition home or self-care (01) ==
LOC: HO.CT 08:40
PROVIDERS: PCP Internal Medicine; Visit Provider Internal Medicine
DX: G44.309 Post-traumatic headache, unspecified, not intractable (principal); S09.90XS Unspecified injury of head, sequela
CPT/HCPCS: 70450

== ENCOUNTER → 2024-08-24 08:42 | Outpatient (BNV) | payer BC, SELFPAY | PROVIDERS: PCP Internal Medicine; Visit Provider Radiology Diagnostic Radiology | DX: G44.309 Post-traumatic headache, unspecified, not intractable (principal) | CPT/HCPCS: 70450 ==

== ENCOUNTER 2024-09-05 16:11 | Outpatient (AMB) | payer BC, SELFPAY ==
--- NOTE | 2024-09-05 16:13 | MHC.PC.OV ---
Vital Signs 09/05/24 16:17 Height 5 ft 8 in Weight 199 lb BMI 30.3 BP 132/78 Blood Pressure Location Rt brachial Pulse 72 Pulse Source Pulse Oximeter Temp 97.1 F Pulse Oximetry (%) 94 Intake Visit Reasons: 1 month f/u Intake Note: no issues Allergies amoxicillin Allergy (Severe, Verified 09/05/24 16:39) Rash cephalexin [From Keflex] Allergy (Severe, Verified 09/05/24 16:39) Rash ampicillin Allergy (Verified 09/05/24 16:39) Rash Medication List - Last Reconciled 09/05/24 by Mirian Her PA-C atorvastatin 10 mg PO DAILY cholecalciferol (vitamin D3) 25 mcg PO DAILY fexofenadine 60 mg PO BID fluticasone propionate 50 mcg/actuation 1 spray intranasal DAILY multivitamin 1 tab PO DAILY PFSH Medical History Vitamin D deficiency Headache Depression Right-sided low back pain without sciatica Coagulopathy, thrombocytopenia, transient, remote, resolved Environmental allergies Herniated lumbar intervertebral disc Hypercholesteremia History of diverticulitis Hx of heartburn Chronic back pain Epigastric hernia Surgical History History of colonoscopy (~07/09/16) History of wisdom tooth extraction History of microdiscectomy History of vasectomy Social History Alcohol intake: current Patient Tobacco Use Status: Never used Tobacco Questionnaire PHQ-9 Over the last 2 weeks, how often have you been bothered by any of the following problems? 1. Little interest or pleasure in doing things: not at all 2. Feeling down, depressed, or hopeless: several days 3. Trouble falling or staying asleep, or sleeping too much: not at all 4. Feeling tired or having little energy: several days 5. Poor appetite or overeating: not at all 6. Feeling bad about yourself - or that you are a failure or have let yourself or your family down: not at all 7. Trouble concentrating on things, such as reading the newspaper or watching television: not at all 8. Moving or speaking so slowly that other people could have noticed. Or the opposite - being so fidgety or restless that you have been moving around a lot more than usual: not at all 9. Thoughts that you would be better off or of hurting yourself in some way: not at all Total score: 2 Depression Screening Interpretation: Negative Depression Screening Done: Yes 26772 - PHQ-9 Billing: Yes Source: Developed by Drs. Gavin Corral, Estela Lopez, Arnel Pimentel and colleagues, with an educational tatyana from [employer]. Thrive Questionnaire I am a: Patient What is your living situation today?: I have a steady place to live Within the past 12 months, did the food you bought not last and you didn't have the money to get more?: Never true Within the past 12 months, did you worry whether your food would run out before you got money to buy more?: Never true Do you have trouble paying for medicines?: No Do you have trouble getting transportation to medical appointments?: No Do you have trouble paying your heating and electricity bill?: No Do you have trouble taking care of your child, family member or friend?: No Do you have trouble with day-to-day activities such as bathing, preparing meals, shopping, managing finances, etc.?: No Are you currently unemployed and looking for a job?: No Are you interested in more education?: No THRIVE Score: 0 AUDIT C Alcohol Use Questionnaire (AUDIT-C) 1. How often do you have a drink containing alcohol?: 4 or more times a week 2. How many drinks containing alcohol do you have on a typical day when you are drinking?: 1 or 2 3. How often do you have six or more drinks on one occasion?: Never Total Score: 4 Score Reviewed/Action Taken: No LUIS FERNANDO-7 AMB Questionnaire LUIS FERNANDO-7 Feeling nervous, anxious, or on edge: 0 = Not at all Not being able to stop or control worryin = Not at all Worrying too much about different things: 0 = Not at all Trouble relaxin = Not at all Being so restless that it is hard to sit still: 0 = Not at all Becoming easily annoyed or irritable: 1 = Several days Feeling afraid as if something awful might happen: 0 = Not at all Total LUIS FERNANDO-7 score (0-4 normal; 5-9 mild; 10-14 moderate; 15-21 severe): 1 Source: Developed by Drs. Gavin Corral, Estela Lopez, Arnel Pimentel and colleagues, with an educational tatyana from [employer]. LUIS FERNANDO-7 Assessment Billing LUIS FERNANDO-7 Assessment Tool: LUIS FERNANDO-7 Assessment 03800 Physical exam (Primary Care) Vital Signs: Last Vital Signs Temp 97.1 F 09/05/24 16:17 Pulse 72 09/05/24 16:17 BP 132/78 09/05/24 16:17 Pulse Ox 94 09/05/24 16:17 Care Plan Goal for BP management: <130/80 at Goal BMI result Body Mass Index 30.3 BMI Assessment/Plan discussion: High BMI High, discussed plan: lifestyle, weight reduction, dietary, physical activity and alcohol moderation Tobacco/Smoking Status: Tobacco use Status Patient Tobacco Use Status Never used Tobacco 09/05/24 16:23 PHQ-9: PHQ-9 Score PHQ-9: Total score 2 09/05/24 16:28 Depression Screening Interpretation: Negative Coding Level of Care Code Est Pt Level 3 (25145) Complex EM visit Add On G2211 Diagnoses Depression F32.A Headache R51.9 Additional Codes PHQ-9 - 50796 - PHQ-9 Billing: Yes ([id number]) LUIS FERNANDO-7 Assessment Billing - LUIS FERNANDO-7 Assessment Tool: LUIS FERNANDO-7 Assessment 03902 ([id number]) Assessment & Plan Assessment & Plan (1) Depression: Code(s): F32.A - Depression, unspecified Category: Medical Plan: Symptoms have reduced after stress mitigation related to job issues. Patient does not require immediate therapy or medication adjustment. Condition is chronic and stable continue to monitor. (2) Headache: Code(s): R51.9 - Headache, unspecified Category: Medical Plan: Less notice of headaches presently; managed with OTC analgesics as required. Condition is chronic and stable continue to monitor. Plan Plan Patient was informed and verbally consented to the use of an ambient scribe for clinic note documentation during this visit. 1. Anemia Fluctuating anemia without symptoms requires monitoring and dietary adjustments if needed. 2. Headache Less notice of headaches presently; managed with OTC analgesics as required. 3. Depression Symptoms have reduced after stress mitigation related to job issues. Patient does not require immediate therapy or medication adjustment. Discussion Notes During this visit, I reviewed the patient's condition, stressing the improvement witnessed in his depressive state following the positive change in his work environment. For hypertension, I discussed that his prior elevated levels were likely stress-induced, now managed effectively with current treatments. Regarding anemia, while his recent results indicated anemia, his stable health suggested no urgent need for intervention, only observation and possible dietary adjustments. I also addressed headaches, agreeing that they appeared stress-related and suggested self-care with standard analgesics as needed. I instructed the patient to return for a scheduled appointment in November or earlier if symptoms worsen. Patient Instructions: Patient Instructions - Observe mood and stress levels; consider seeking support if depressive symptoms return. - Consume a diet potentially richer in iron - consult video engineer if required. - Use [id number] pain relief for headaches as needed. - Return for physical examination in November or sooner if new symptoms arise or existing conditions worsen. - Follow up sooner if any concerning symptoms develop. Scribe Plan - Not visible on output: History of Present Illness The patient is a 58-year-old male presenting with a follow-up for depression management and intermittent headache. He notes a decrease in depressive symptoms after significant stress reduction related to job security improvements at his workplace. His blood pressure was previously noted to be high due to stress but is now within normal limits. He has a history of anemia which has varied, recently confirmed by laboratory tests but without gastrointestinal symptoms. Previously, he experienced thrombocytopenia associated with a past COVID-19 infection which has resolved. The patient reports a reduction in both frequency and severity of headaches that previously required evaluation; these are now infrequent and potentially stress-related. A recent CT scan of the head was normal, indicating no acute central nervous system issues. Social History - Employment: Patient?s job security improved after illegal termination of employees was corrected. Review of Systems - Neurological: Reports infrequent headaches. Physical Exam Appearance: Alert. Oriented X3. No acute distress. Head: Normal external exam. Normocephalic. Atraumatic. Eyes: Pupils are equal, round, and reactive to light. Extraocular movements intact. Conjunctiva and sclera normal. Eyelids normal. Throat: Pharynx normal. Uvula midline. Moist mucous membranes. Neck: Normal inspection. Neck supple. Full range of motion. Cardiovascular: Normal heart rate and rhythm. Heart sound normal. No murmurs noted. Pulses normal throughout. Respiratory: No respiratory distress. Painless inspiration. Back: No costovertebral angle tenderness. Full range of motion noted. Skin: Skin warm and dry. Normal skin color. Normal skin turgor. No rashes/lesions/lacerations noted. Extremities: No lower extremity edema. Extremities exhibit normal range of motion. Extremities nontender. Neuro: Oriented X 3. No motor deficit. No sensory deficit. Reflexes normal. Results - Imaging Tests: CT scan was normal. - Labs: Shows anemia.
[2024-09-05 16:17] VITALS: BP 132/78; PULSE 72; TEMP 36.2; O2SAT 94; BMI 30.3
--- OUTSIDE RECORDS SUMMARY | 2024-09-05 18:58 | XMS_ITS | Data Portability ---
Author Organization [facility], , [facility] Address [address] [place] [address] Care Team Providers Care Frame Bander Name Role Phone [facility] Clinical Evaluator Assessment No assessment recorded. Plan of Treatment Reminders Order Date Submit Date Provider Last Modified By Organization Details Last Modified Time Details Appointments None recorded. Lab CBC 2016 017 [facility], [address] [place], [address], 7 11:50:[address] referral - rest SSCP and diaphoresi s, with Left arm parasthesi as, lasting 90 mins. 5 days agoresolve d on own. Never seen by MD until today. feels well, no symptoms.N o evidence of WA on rest ECG done todayRisk factor is 51 year old male with FH; adopted-kn own biologic mother had an WA in her 50's.reaso nable story, deserves workup ASA 81refer Hamp CVA, likely nuclear stress test 2017 018 KASHMIR Not available 8 19:49:29 Procedures None recorded. Surgeries None recorded. Imaging electrocar diogram 2017 018 [facility], [address] [place], [address], 8 12:59:36 XR, chest 2016 017 [facility] (Imaging), [address], [place], [address], 03/22/201 7 09:17:16 Medication Orders omeprazole 40 mg capsule,de layed release 2017 018 [id number], [address] [place], [address], 8 15:27:34 azithromyc in 250 mg tablet 2016 017 [facility], [address] [place], [address], 8 14:42:33 Qvar 40 mcg/actuat ion Metered Aerosol oral inhaler 2016 017 [facility], [address] [place], [address], 8 14:42:43 Patient TargetsNo targets recorded. Patient InstructionsNo instructions recorded. Reason for Referral Clinical Evaluator Referral for Ch est pain rest SSCP and diaphoresis, with Left arm parasthesias, lasting 90 mins. 5 days agoresolved on own. Never seen by MD until today. feels well, no symptoms.No evidence of WA on rest ECG done todayRisk factor is 51 year old male with FH; adopted- known biologic mother had an WA in her 50's.reasonable story, deserves workup ASA 81refer Hamp CVA, likely nuclear stress test Referring Physician: Gavin Tate, Family Medicine, Encounter Date: 07/08/2017 Results Created Date Observation Date Name Description Value Unit Range Abnormal Flag Note LastModifiedBy Organization Detail LastModifiedTime 09/02/19 17 09/01/2016 CBC WBC 6.3 K/? ? ?L 4.2-9. 1 Not Available [address], [address], 09/01/2016 11:50:46 09/02/19 17 09/01/2016 CBC RBC 4.55 M/? ? ?L 4.63-6 .08 low Not Available [address], [address], 09/01/2016 11:50:46 09/02/19 17 09/01/2016 CBC HGB 14.4 g/dL 13.7-1 7.5 Not Available [address], [address], 09/01/2016 11:50:46 09/02/19 17 09/01/2016 CBC HCT 43.4 % 40.1-5 1.0 Not Available [address], [address], 09/01/2016 11:50:46 09/02/19 17 09/01/2016 CBC MCV 95.4 ? ? ?L 79.0-9 2.2 high Not Available [address], [address], 09/01/2016 11:50:46 09/02/19 17 09/01/2016 CBC MCH 31.6 pg 25.7-3 2.2 Not Available [address], [address], 09/01/2016 11:50:46 09/02/19 17 09/01/2016 CBC MCHC 33.2 g/dL 32.3-3 6.5 Not Available [address], [address], 09/01/2016 11:50:46 09/02/19 17 09/01/2016 CBC plt 113.0 K/? ? ?L 163.0- 337.0 low JOSEPHINE=V erifi ed by Cecile farley Not Available [address], [address], 09/01/2016 11:50:46 09/02/19 17 09/01/2016 CBC MPV 12.3 9.4-12 .4 Not Available [address], [address], 09/01/2016 11:50:46 09/02/19 17 09/01/2016 CBC neut% 55.5 % 34.0-6 7.9 Not Available [address], [address], 09/01/2016 11:50:46 09/02/19 17 09/01/2016 CBC neut# 3.5 1.8-5. 4 Not Available [address], [address], 09/01/2016 11:50:46 09/02/19 17 09/01/2016 CBC lymph % 26.0 % 21.8-5 3.1 Not Available [address], [address], 09/01/2016 11:50:46 09/02/19 17 09/01/2016 CBC lymph # 1.6 K/? ? ?L 1.3-3. 6 Not Available [address], [address], 09/01/2016 11:50:46 09/02/19 17 09/01/2016 CBC mono% 14.4 % 5.3-12 .2 high Not Available [address], [address], 09/01/2016 11:50:46 09/02/19 17 09/01/2016 CBC mono# 0.9 0.3-0. 8 high Not Available [address], [address], 09/01/2016 11:50:46 09/02/19 17 09/01/2016 CBC eo% 3.5 % 0.8-7. 0 Not Available [address], [address], 09/01/2016 11:50:46 09/02/19 17 09/01/2016 CBC eo# 0.2 0.0-0. 5 Not Available [address], [address], 09/01/2016 11:50:46 09/02/19 17 09/01/2016 CBC baso% 0.6 % 0.2-1. 2 Not Available [address], [address], 09/01/2016 11:50:46 09/02/19 17 09/01/2016 CBC baso# 0.0 0.0-0. 1 Not Available [address], [address], 09/01/2016 11:50:46 09/02/19 17 09/01/2016 CBC RDW-CV 12.6 % 11.6-1 4.4 Not Available [address], [address], 09/01/2016 11:50:46 07/08/19 18 07/08/2017 elect paris patelgr am Result Not Available [address], [address], 07/08/2017 14:52:47 08/30/19 18 08/29/2017 HbA1c (hemo globi n A1c), blood hemoglobin A1C 5.2 % 4.3-5. 8 Not Available [facility] (Out[facility]) [address] [place] [address], [address], 08/29/2017 11:22:20 08/30/19 18 08/29/2017 CMP, serum or plasm a sodium 141 mmol/ L 133-14 6 Not Available [facility] (Out[facility]) [address] [place] [address], [address], 08/29/2017 11:45:54 08/30/19 18 08/29/2017 CMP, serum or plasm a potassium 4.4 mmol/ L 3.3-5. 1 Not Available [facility] (Out[facility]) [address] [place] [address], [address], 08/29/2017 11:45:54 08/30/19 18 08/29/2017 CMP, serum or plasm a chloride 100 mmol/ L 96-108 Not Available [facility] (Out[facility]) [address] [place] [address], [address], 08/29/2017 11:45:54 08/30/19 18 08/29/2017 CMP, serum or plasm a CO2 27 mmol/ L 21-35 Not Available [facility] (Out[facility]) [address] [place], [address], 08/29/2017 11:45:54 08/30/19 18 08/29/2017 CMP, serum or plasm a BUN 18 mg/dL 6-19 Not Available [facility] (Out[facility]) [address] [place], [address], 08/29/2017 11:45:54 08/30/19 18 08/29/2017 CMP, serum or plasm a creatinine 0.90 mg/dL 0.5-1. 5 Not Available [facility] (Out[facility]) [address] [place], [address], 08/29/2017 11:45:54 08/30/19 18 08/29/2017 CMP, serum or plasm a glucose 88 mg/dL 70-99 Not Available [facility] (Out[facility]) [address] [place], [address], 08/29/2017 11:45:54 08/30/19 18 08/29/2017 CMP, serum or plasm a albumin 4.5 g/dL 3.9-4. 8 Not Available [facility] ([facility]) [address] [place], [address], 08/29/2017 11:45:54 08/30/19 18 08/29/2017 CMP, serum or plasm a total protein 7.7 g/dL 6.5-8. 0 Not Available [facility] (Out[facility]) [address] [place], [address], 08/29/2017 11:45:54 08/30/19 18 08/29/2017 CMP, serum or plasm a calcium 9.8 mg/dL 8.4-10 .3 Not Available [facility] ([facility]) [address] [place], [address], 08/29/2017 11:45:54 08/30/19 18 08/29/2017 CMP, serum or plasm a alkaline phosphatase 78 U/L 39-117 Not Available [facility] (Outpatient) [address] [place] [address], [address], 08/29/2017 11:45:54 08/30/19 18 08/29/2017 CMP, serum or plasm a total bilirubin 0.6 mg/dL 0.0-1. 2 Not Available [facility] ([facility]) [address] [place] [address], [address], 08/29/2017 11:45:54 08/30/19 18 08/29/2017 CMP, serum or plasm a AST 29 U/L 0-37 Not Available [facility] ([facility]) [address] [place] [address], [address], 08/29/2017 11:45:54 08/30/19 18 08/29/2017 CMP, serum or plasm a ALT 37 U/L 0-40 Not Available [facility] ([facility]) [address] [place] [address], [address], 08/29/2017 11:45:54 08/30/19 18 08/29/2017 CMP, serum or plasm a globulin 3.2 g/dL 1-4.8 Not Available [facility] ([facility]) [address] [place] [address], [address], 08/29/2017 11:45:54 08/30/19 18 08/29/2017 CMP, serum or plasm a eGFR 99 mL/mi n/1.7 3m2 >59 If patie nt is black , multi ply resul t by 1.159 . The eGFR calcu latrowan n has gallo ed from the MDRD equat ion to the CKD-E PI equat ion as of August 16, 2017. Not Available [facility] ([facility]) [address] [place] [address], [address], 08/29/2017 11:45:54 08/30/19 18 08/29/2017 CMP, serum or plasm a anion gap 18 mmol/ L 10-20 Not Available [facility] ([facility]) [address] [place] [address], [address], 08/29/2017 11:45:54 08/30/19 18 08/29/2017 TSH, serum or plasm a TSH 4.83 uIU/m L 0.27-4 .20 high Not Available [facility] ([facility]) [address] [place] [address], [address], 08/29/2017 11:45:56 08/30/19 18 08/29/2017 CBC WBC 6.48 K/uL 3.40-1 1.20 Not Available [facility] ([facility]) [address] [place] [address], [address], 08/29/2017 11:46:35 08/30/19 18 08/29/2017 CBC RBC 4.67 M/uL 4.50-5 .50 Not Available [facility] ([facility]) [address] [place] [address], [address], 08/29/2017 11:46:35 08/30/19 18 08/29/2017 CBC HGB 14.7 g/dL 13.0-1 7.0 Not Available [facility] ([facility]) [address] [place] [address], [address], 08/29/2017 11:46:35 08/30/19 18 08/29/2017 CBC HCT 43.2 % 40.0-5 1.0 Not Available [facility] ([facility]) [address] [place] [address], [address], 08/29/2017 11:46:35 08/30/19 18 08/29/2017 CBC plt 93 K/uL 130-40 0 low Small plate let clump s prese nt. Not Available [facility] ([facility]) [address] [place] [address], [address], 08/29/2017 11:46:35 08/30/19 18 08/29/2017 CBC MCV 92.5 fL 79.0-9 8.0 Not Available [facility] ([facility]) [address] [place], [address], 08/29/2017 11:46:35 08/30/19 18 08/29/2017 CBC MCH 31.5 pg 27.0-3 4.8 Not Available [facility] ([facility]) [address] [place] [address], [address], 08/29/2017 11:46:35 08/30/19 18 08/29/2017 CBC MCHC 34.0 g/dL 31.5-3 6.0 Not Available [facility] ([facility]) [address] [place] [address], [address], 08/29/2017 11:46:35 08/30/19 18 08/29/2017 CBC RDW 12.0 % 10.8-1 4.6 Not Available [facility] ([facility]) [address] [place] [address], [address], 08/29/2017 11:46:35 08/30/19 18 08/29/2017 CBC MPV 12.5 fL 9.4-12 .4 high Not Available [facility] ([facility]) [address] [place] [address], [address], 08/29/2017 11:46:35 08/30/19 18 08/29/2017 CBC NRBC 0.00 /100_ WBCs Not Available [facility] ([facility]) [address] [place] [address], [address], 08/29/2017 11:46:35 08/30/19 18 08/29/2017 CBC absolute NRBC 0.00 K/uL Not Available [facility] ([facility]) [address] [place] [address], [address], 08/29/2017 11:46:35 08/30/19 18 08/29/2017 lipid panel , blood HDL 41 mg/dL Inter preta tion: Risk Level Males Decre ased >45 mg/dL [place] 40-45 mg/dL Incre ased <40 mg/dL Not Available [facility] ([facility]) [address] [place], [address], 08/29/2017 12:07:21 08/30/19 18 08/29/2017 lipid panel , blood cholesterol 225 mg/dL 0-240 Not Available [facility] ([facility]) [address] [place], [address], 08/29/2017 12:07:21 08/30/19 18 08/29/2017 lipid panel , blood triglyceride s 208 mg/dL 30-160 high Not Available [facility] ([facility]) [address] [place] [address], [address], 08/29/2017 12:07:21 08/30/19 18 08/29/2017 lipid panel , blood LDL 142 mg/dL 50-129 high LDL level s in terms of risk for coron deanne heart disea se: <100 mg/dL : Optim al 100-1 29 mg/dL : Near or above optim al 130-1 59 mg/dL : Borde rline high 160-1 89 mg/dL : High >190 mg/dL : Very High Not Available [facility] (Out[facility]) [address] [place], [address], 08/29/2017 12:07:21 08/30/19 18 08/29/2017 lipid panel , blood cardiac risk ratio 5.5 3.4-5. 0 high Not Available [facility] (Out[facility]) [address] [place], [address], 08/29/2017 12:07:21 08/30/19 18 08/29/2017 T4, free, serum free T4 1.2 NG/dL 0.9-1. 7 Not Available [facility] (Out[facility]) [address] [place], [address], 08/29/2017 12:09:44 10/10/19 22 10/09/2021 SARS- COV-2 RNA (COVI D-19) , QUALI TATIV E NAAT sarscov2 NEGATI VE negati ve normal This test has been autho rized by the FDA under an Emerg ency Use Autho rizat ion(E UA) for you by autho rized labs. Not Available [facility] [address] [facility] [address], [place], [address], 10/09/2021 14:28:13 09/02/19 17 09/01/2016 XR, chest [...] signed Readin g Physic mirella: Chirag arcos [facility] (Imaging) [address], [place], [address], 2016 14:51:17 07/08/19 18 elect rocar diogr am No observ ation record ed. [email or web address] Not Available 07/08 15:06:19 08/31/19 18 08/29/2017 NM, myoca rdial perfu martha scan No observ ation record ed. [email or web address] [address], [place], [address], 08/30/2017 10:28:08 08/31/19 18 08/29/2017 US, echoc ardio gram, trans thora cic, compl ete No observ ation record ed. [email or web address] Not Available 08/30 15:52:19 Result Notes None recorded. Problems Name Problem SNOMED Code Status Onset Date Resolution Date Notes Provider Name and Address Organization Details Recorded Time Diverticulitis of colon 408442165 Active Gavin Tate MD [address] [place], [place] [address], [address], [facility] 6 10:22:50 Vitamin D deficiency 07294216 Active 2015 Gavin Tate MD [address] [place], [place] [address], [address], [facility] 6 13:31:04 Hypothyroidism 19209987 Active 2018 Toyin Troncoso [facility] 9 10:52:54 Problem Notes None recorded. Procedures Surgical History Date Name Laterality Status Provider Name and Address Organization Details Recorded Time 2 Payton - EGD completed Velasquez Cain MD [address] [place] [address], [phone], [facility] 10/12/2021 09:00:20 2 Payton - Colonoscopy completed Velasquez Cain MD [address] [place] [address], [phone], [facility] 10/12/2021 09:02:25 7 Colonoscopy with biopsy completed Ever Carias NP [address] [place] [address], [phone], [facility] 07/16/2016 09:06:41 7 Carlos - Colonoscopy completed Marco Antonio Gonzalez [address] [place] [address], [phone], [facility] 07/09/2016 10:28:15 Imaging Results Imaging Date Name Status LastModified by Organization Details LastModified Time 09/01/2016 XR, chest completed [facility] (Imaging) [address], [place], [address], 2016 14:51:17 07/08/[address] [facility] Informa tion not available 07/08/2017 15:06:19 08/29/2017 NM, myocardial perfusion scan completed [facility] [address], [place], [address], 08/30/2017 10:28:08 08/29/2017 US, echocardiogram, transthoracic, complete completed Information not available 08/30/2017 15:52:19 Procedure Notes None recorded. Medical Equipment None Reported. Allergies Allergen ID Allergen Name Allergen Category Reaction Reaction Severity Criticality Documentation Date Start Date Code Code System Note Provider Name and Address Organization Details Recorded Time 093106 ampicilli n medicatio n rash Not available Not available 09/19/2014 733 RxNorm Didi Dalton null, [facility] 5 09:22:52 24908 amoxicill in medicatio n rash Not available Not available 11/09/2011 723 RxNorm Soraya Delaney LOOP T[employer] [facility], [facility] 2 10:26:37 22593 Keflex medicatio n rash Not available Not available 11/09/2011 28817 7 RxNorm Soraya Delaney LOOP TENDER null, [facility] 2 10:26:37 Medications Name Sig [...] Details Last Updated DateTime 7 374.65 cm 05297.6 6 g 6.1 kg/m2 98.8 [degF] 96 % 96 % 93 /min 138 mm[Hg] 90 mm[Hg] Estela Haas [facility] 7 15:10:55 Date Recorded Body height Body weight Body mass index (BMI) Heart rate Body temperature Oxygen saturation Oxygen saturation in Arterial blood by Pulse oximetry Systolic blood pressure Diastolic blood pressure Provider Name and Address Organization Details Last Updated DateTime 7 172.72 cm 39412.5 9 g 28.1 kg/m2 64 /min 98 [degF] 96 % 96 % 138 mm[Hg] 84 mm[Hg] Wil echols LPN [facility] 7 08:12:39 Date Recorded Body height Body mass index (BMI) Body weight Body temperature Oxygen saturation Oxygen saturation in Arterial blood by Pulse oximetry Heart rate Systolic blood pressure Diastolic blood pressure Provider Name and Address Organization Details Last Updated DateTime 8 172.72 cm 28.6 kg/m2 64646.3 7 g 98.9 [degF] 97 % 97 % 97 /min 118 mm[Hg] 90 mm[Hg] ALYSON Fermin [facility] 8 14:46:18 Date Recorded Body height Body mass index (BMI) Body weight Heart rate Systolic blood pressure Diastolic blood pressure Provider Name and Address Organization Details Last Updated DateTime 8 172.72 cm 29.4 kg/m2 82769.0 3 g 86 /min 126 mm[Hg] 82 mm[Hg] Mei Schwartz LPN [facility] 8 15:45:03 Social History Question Answer Notes LastModified by Organizat ion Details LastModified Time Tobacco Smoking Status Former Smoker IZABELLA Orr, [facility] 11/09/2011 10:26:37 What Is Your [...] . known biolog ic mother had an WA in her 50's. No maternal sig medical hx. except diabetes. esoph [place]. Medical History No medical history recorded. Immunizations Vaccine Type Date Status Note Provider Nam e and Address Organization Details Recorded Time Tdap 2 completed Not Available [facility] 06/30/2019 02:27:39 pneumococcal polysaccharide PPV23 2 completed Not Available [facility] 06/30/2019 02:14:55 influenza, unspecified formulation 6 completed Wil Patel LPN [facility] 03/05/2016 18:01:40 Past Encounters Encounter ID Performer Location Encounter Start Date Encounter Closed Date Diagnosis/Indication Diagnosis SNOMED-CT Code Diagnosis ICD10 Code Diagnosis Note [id number] [facility], OFFICE [address] [place] [address] 11/09/2011 09:55:14 11/09/2011 10:58:33 [id number] Autumn Madrid [facility], OFFICE [address] [place] [address] 11/14/2012 09:57:58 11/14/2012 11:01:15 [id number] [facility], OFFICE [address] [place] [address] 12/19/2012 09:13:47 12/19/2012 10:52:13 [id number] Madelyn Veronica PA-C [facility], OFFICE [address] [place] [address] 09/19/2014 09:13:09 09/19/2014 09:47:33 Cough 42130151 push fluids, humidify air. mucinex, tea with honey. probiotics encouraged . follow up if symptoms persist or worsen. 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 [id number] Gastritis [id number] we ethan l discuss at upcoming [facility] Adult heal th examination 576086005 see Risk Assessment and Lifestyle Change Counseling section above [id number] Josi Newman, OT Physical Therapy, [facility] [address] [place] [address] 01/08/2015 15:58:00 01/09/2015 12:33:20 Acquired trigger finger [id number] , [facility], OFFICE [address] [place] [address] 01/09/2015 08:34:39 01/09/2015 09:21:55 Adult health examination 475544287 see Risk Assessment and Lifestyle Change Counseling section above Counseling [id number] Pain in toe 796001750 L> >R due to OA referred Dr Abdi 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 agrees to see Jose Rafael Childs to discuss surgical options. [id number] Susy Iglesias MD , [facility], OFFICE [address] [place] [address] 10/14/2015 13:32:03 10/14/2015 14:03:05 Anterior knee pain 270605311 M25.569 M25.562 since a fall 2 y a , worsened lately after vigorous exersises, gael possible Fx of patella, will FU aftwr XR for definite desision about treatment options [id number] Rosibel Meza , [facility], OFFICE [address] [place] [address] 10/21/2015 09:31:24 10/21/2015 15:24:34 Diverticulitis of colon 462613323 K57.32 day two of antibiotis c, I reassurred him that his abd pain with sudden movements should remit over next 4 days. dz cause of anatomy, recurrence , signs of and extermination inspector treatment discussed. he may likely have another attack, but he is well aware of how it will present. Q's answered. i informed him that study has disproven the old dietary restrictio ns. 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 HP neg agrees to complete a month PPI or double dose ranitidine Hernia of anterior abdominal wall 562354262 K43.9 mild in size, progressiv e, upper midline ventral hernias, inevitable progressio n self reduction, ER indication s discussed. agrees to see Jose Rafael Childs to discuss surgical options. [id number] Gavin Tate MD , [facility], OFFICE [address] [place] [address] 03/05/2016 17:42:59 03/08/2016 10:09:56 Diverticulitis of colon 318294489 K57.32 tightness llq, soft stool, not movement or meal related, no fever. is tuesday so concerned. appears to be same as his presentati on s in 10/2015, will retreat. he will take probiotics . prior Pt presents for 10/19/15 [facility] and 10/20/15 [facility] f/u-LLQ pain and nausea, no diarrhea, no fever.. Had U/A, normal, had CT done at [facility], turned out to be diverticul itis. Given antibiotic s and pain meds Screening for malignant neoplasm of colon 865867017 Z12.11 Referral for a DIRECT booked colonoscop y. This patient is a healthy ASA Class 1 or 2 patient (only mild systemic disease), or a STABLE, well controlled insulin dependent diabetic. They do not have serious cardiac disease ie WA/angiopl asty within 1 year, symptomati c CHF; renal failure with CKD 4 or 5; take Coumadin, Plavix, Aggrenox, etc. 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 HP neg agrees to complete a month PPI or double dose ranitidine Hernia of anterior abdominal wall 814694139 K43.9 mild in size, progressiv e, upper midline ventral hernias, inevitable progressio n self reduction, ER indication s discussed. agrees to see Jose Rafael Childs to discuss surgical options. [id number] Gavin Tate MD , [facility], OFFICE [address] [place] [address] 04/21/2016 13:58:01 04/21/2016 14:36:42 Adult health examination 822641763 Z00.00 see Risk Assessment and Lifestyle Change Counseling section above Counseling [id number] Z71 .9 Diverticul itis of colon [id number] K57.32 04/21/16 again reports he had recent [...] of anatomy, recurrence , signs of and extermination inspector treatment discussed. he may likely have another attack, but he is well aware of how it will present. Q's answered. i informed him that study has disproven the old dietary restrictio ns. Anterior knee pain 21175 3006 M25.569 M25.562 historical . since a fall 2 y a , worsened lately after vigorous exercises, gael possible Fx of patella, will FU after XR for definite decision about treatment options Pain in toe [id number] M7 9.676 historical . 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 left pinky locks up in AM seen Josi Broadlands Gastritis [id number] K29.70 prior- appears to have recurred 10/2015, will retreat a month. HP neg agrees to complete a month PPI or double dose ranitidine Hernia of anterior abdominal wall [id number] K43.9 stable with valsalva. mild in size, progressiv e, upper midline ventral hernias, inevitable progressio n self reduction, ER indication s discussed. agrees to see Jose Rafael Childs to discuss surgical options. Family his tory of diabetes mellitus [id number] Z83.3 [id number] Velasquez Oleary MD , 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 This patient is a healthy ASA Class 1 or 2 patient (only mild systemic disease), or a STABLE, well controlled insulin dependent diabetic. They do not have serious cardiac disease ie WA/angiopl asty within 1 year, symptomati c CHF; renal failure with CKD 4 or 5; take Coumadin, Plavix, Aggrenox, etc. Pain in toe 039600555 M7 9.676 historical .L>>R due to OA referred Dr Abdi Gastritis [id number] K29.70 historical .appears to have recurred 10/2015, will retreat a month. HP neg agrees to complete a month PPI or double dose ranitidine Diverticul itis of colon 742542052 K57.32 tightness llq, soft stool, not movement or meal related, no fever. is tuesday so concerned. appears to be same as his presentati on s in 10/2015, will retreat. he will take probiotics . prior Pt presents for 10/19/15 [facility] and 10/20/15 [facility] f/u-LLQ pain and nausea, no diarrhea, no fever.. Had U/A, normal, had CT done at [facility], turned out to be diverticul itis. Given antibiotic s and pain meds Hernia of anterior abdominal wall [id number] K43.9 mild in size, progressiv e, upper midline ventral hernias, inevitable progressio n self reduction, ER indication s discussed. agrees to see Jose Rafael Childs to discuss surgical options. Anterior knee pain 39039 3006 M25.569 M25.562 historical .since a fall 2 y a , worsened lately after vigorous exersises, gael possible Fx of patella, will FU aftwr XR for definite desision about treatment options [id number] Marco Antonio Carlos [facility], [facility] [address] [place] [address] 07/09/2016 09:12:17 07/09/2016 13:48:18 [id number] Josie Villarreal MD , [facility], [address] [place] [address] 07/30/2016 15:02:22 07/30/2016 15:28:50 Acute upper respiratory infection 35386333 J06.9 Seems to have cleared one URI, [...] or failure to resolve in 2-4 weeks. [id number] Gavin Tate MD , [facility], [address] [place] [address] 09/01/2016 07:52:21 09/01/2016 08:32:31 Cough 15253294 R05 09/01/16his myalgias , bedbound 2 days of influenza like syndrome of 07/30/16 resolvedst ill no feverspleu ritic cough talisha in AM, productive , doeHR elevated, noted in bedno chest pressure.e xam is benign no evid of sig CP dz.likely a second infection which is clearing.x ray, bloodwork to be sure [id number] Gavin Tate MD , [facility], [address] [place] [address] 07/08/2017 14:28:11 07/08/2017 15:31:21 Chest pain 46619808 R07.9 rest SSCP and diaphoresi s, with Left arm parasthesi as, lasting 90 mins. 5 days agoresolve d on own. Never seen by MD until today. feels well, no symptoms. No evidence of WA on rest ECG done today Risk factor is 51 year old male with FH;adopted -known biologic mother had an WA in her 50's.deser ves workupASA 81refer Hamp CVA, likely nuclearstr ess test Gastroesop hageal reflux disease 560153543 K21.9 caffeine drinking againfaile d ranitidine for this condition in the pastomep alleviates CP even when taken every few days, will renew Palpitations 94016875 R0 0.2 from decades ago [id number] Gavin Tate MD , [facility], [address] [place] [address] 08/30/2017 15:34:07 09/05/2017 13:27:08 Hypothyroidism 56522156 E03.9 bord high 2018we discussed need to follow, ordered for mid 2018 Chest pain 21220827 R07. 9 card consulted, we discussed results of echo and thallium both negative. Chest pain is not anginal therefore. end of workup rest SSCP and diaphoresi s, with Left arm parasthesi as, lasting 90 mins. 5 days agoresolve d on own. Never seen by MD until today. feels well, no symptoms. No evidence of WA on rest ECG done today Risk factor is 51 year old male with FH;adopted -known biologic mother had an WA in her 50's.deser ves workupASA 81refer Hamp CVA, likely nuclearstr ess test Gastroesop hageal reflux disease 337041900 K21.9 caffeine drinking againfaile d ranitidine for this condition in the pastomep alleviates CP even when taken every few days, will renew Palpitations 28824341 R0 0.2 from decades ago Pityriasis rosea 3932418 4 L42 anterior chestovate M-Papules are aligned with skin folds with herald patch over left anterior shoulderas symptomati cno need to treatthis is early stagei discussed that he can expect peeling as lesions mature over many weeks.caus e course of and self limited benign nature discussed [id number] Edin Bansal RN [facility], [address] [address] 10/12/2021 07:01:50 10/12/2021 13:41:37 Health Concerns Section Related Observation LastModified by Organization Detai ls LastModified Time None Recorded Concern Status LastModified by Organization Details LastModified Time None Recorded Advance Directives Directive None Recorded Payers Encounter Date Sequence Insurance Name Policy Number Policy Gould Covered Member ID Gould Member ID Guarantor Name 07/30/2016 1 [facility] [employer] 112 Nolan Billy [id number] Nolan Cervantes 09/01/2016 1 [employer] [employer] 112 Nolan Billy [id number] Nolan Cervantes 07/08/2017 1 [employer] [employer] 112 Nolan Billy [id number] Nolan Billy 08/30/2017 1 [employer] [employer] 112 Nolan Billy [id number] Nolan Billy 10/12/2021 1 [employer] [employer] 112 Nolan Billy [id number] Nolan Cervantes Notes Date Note Type Note [...] Co-workers all have colds Josie Villarreal MD [address] [place] [address], [phone], [facility] 08/02/2016 12:19:06 09/01/2016 text/html VMG URI Flu [...] Co-workers all have colds Gavin Tate MD [address] [place] [address], [phone], [facility] 09/01/2016 08:33:36
== END 2024-09-05 16:39 | disposition home or self-care (01) ==
LOC: HO.HMCSH 16:11
PROVIDERS: PCP Internal Medicine; Visit Provider Physician Assistant Medical
DX: F32.A Depression, unspecified (principal); R51.9 Headache, unspecified

== ENCOUNTER → 2024-09-05 16:11 | Outpatient (BNVA) | payer BC, SELFPAY | PROVIDERS: PCP Internal Medicine; Visit Provider Physician Assistant Medical | DX: F32.A Depression, unspecified (principal); R51.9 Headache, unspecified; D64.9 Anemia, unspecified | CPT/HCPCS: 96127 ==

== ENCOUNTER 2024-11-27 15:06 | Outpatient (AMB) | payer BC, SELFPAY ==
[2024-11-27 15:02] VITALS: BP 142/84; PULSE 72; RESP 14; TEMP 36.7; O2SAT 98; BMI 29.2
--- NOTE | 2024-11-27 15:02 | A.OFFPC_ITS ---
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: No Accompanied by: Self / Same As Patient Allergies amoxicillin Allergy (Severe, Verified 11/27/24 15:03) Rash cephalexin [From Keflex] Allergy (Severe, Verified 11/27/24 15:03) Rash ampicillin Allergy (Verified 11/27/24 15:03) Rash Tobacco use date assessed: 11/27/24 Dental Screening Dental Screen Date: 11/27/24 Did you have a dental visit in the last 12 months?: Yes Did you have a dental problem in the last 6 months where you did not have access to dental care?: No Was dental information given to patient?: Patient has dentist [facility] Medical History Vitamin D deficiency Headache Depression Right-sided low back pain without sciatica Coagulopathy, thrombocytopenia, transient, remote, resolved Environmental allergies Herniated lumbar intervertebral disc Hypercholesteremia History of diverticulitis Hx of heartburn Chronic back pain Epigastric hernia Surgical History History of colonoscopy (~10/12/21) History of wisdom tooth extraction History of microdiscectomy History of vasectomy Social History (Updated 11/27/24 @ 15:11 by ALYSON Arriola) Housing: House Alcohol intake: current Alcohol intake frequency: 3 or more drinks per day Patient Tobacco Use Status: Former Tobacco user service: No Current occupational status: retired Cognitive needs: No Hearing needs: No Vision needs: Yes (rx glasses) Questionnaire PHQ-9 Over the last 2 weeks, how often have you been bothered by any of the following problems? 1. Little interest or pleasure in doing things: not at all 2. Feeling down, depressed, or hopeless: not at all 3. Trouble falling or staying asleep, or sleeping too much: not at all 4. Feeling tired or having little energy: not at all 5. Poor appetite or overeating: not at all 6. Feeling bad about yourself - or that you are a failure or have let yourself or your family down: not at all 7. Trouble concentrating on things, such as reading the newspaper or watching television: not at all 8. Moving or speaking so slowly that other people could have noticed. Or the opposite - being so fidgety or restless that you have been moving around a lot more than usual: not at all 9. Thoughts that you would be better off or of hurting yourself in some way: not at all Total score: 0 Source: Developed by Drs. Gavin Corral, Estela Lopez, Arnel Pimentel and colleagues, with an educational tatyana from [employer]. Thrive Questionnaire Date Thrive assessed: 11/27/24 I am a: Patient What is your living situation today?: I have a steady place to live Within the past 12 months, did the food you bought not last and you didn't have the money to get more?: Never true Within the past 12 months, did you worry whether your food would run out before you got money to buy more?: Never true Do you have trouble paying for medicines?: No Do you have trouble getting transportation to medical appointments?: No Do you have trouble paying your heating and electricity bill?: No Do you have trouble taking care of your child, family member or friend?: No Do you have trouble with day-to-day activities such as bathing, preparing meals, shopping, managing finances, etc.?: No Are you currently unemployed and looking for a job?: No Are you interested in more education?: No THRIVE Score: 0 AUDIT C Alcohol Use Questionnaire (AUDIT-C) 1. How often do you have a drink containing alcohol?: 4 or more times a week 2. How many drinks containing alcohol do you have on a typical day when you are drinking?: 3 or 4 3. How often do you have six or more drinks on one occasion?: Never Total Score: 5 Score Reviewed/Action Taken: No LUIS FERNANDO-7 AMB Questionnaire LUIS FERNANDO-7 Date LUIS FERNANDO - 7 assessed: 11/27/24 Feeling nervous, anxious, or on edge: 0 = Not at all Not being able to stop or control worryin = Not at all Worrying too much about different things: 0 = Not at all Trouble relaxin = Not at all Being so restless that it is hard to sit still: 0 = Not at all Becoming easily annoyed or irritable: 0 = Not at all Feeling afraid as if something awful might happen: 0 = Not at all Total LUIS FERNANDO-7 score (0-4 normal; 5-9 mild; 10-14 moderate; 15-21 severe): 0 Source: Developed by Drs. Gavin Corral, Estela Lopez, Arnel Pimentel and colleagues, with an educational tatyana from [employer]. Physical exam (Primary Care) Vital Signs: Last Vital Signs Temp 98.0 F 11/27/24 15:02 Pulse 72 11/27/24 15:02 Resp 14 11/27/24 15:02 BP 142/84 H 11/27/24 15:02 Pulse Ox 98 11/27/24 15:02 Oxygen Delivery Method Room Air 11/27/24 15:02 BMI result Body Mass Index 29.2 Tobacco/Smoking Status: Tobacco use Status Tobacco use date assessed 11/27/24 11/27/24 15:05 Patient Tobacco Use Status Former Tobacco user 11/27/24 15:12 PHQ-9: PHQ-9 Score PHQ-9: Total score 0 11/27/24 15:12 Thrive Assessment: Date of Thrive Assessment Date Thrive assessed 11/27/24 11/27/24 15:12 Office Procedures EKG Details: NSR [id number], Complete Coding Level of Care Code Est Pt Prev Care 18-39y([id number]) Diagnoses Annual physical exam Z00.00 CPT Codes EKG - CPT: 27255-[id number], Complete ([id number]) Assessment & Plan Assessment & Plan (1) Annual physical exam: Code(s): Z00.00 - Encounter for general adult medical examination without abnormal findings Plan: BW revd. EKG Revd. Reassurance Plan History of Present Illness - The patient is a 59-year-old male presenting for a physical examination. In addition , he wished to discuss his chronic complaints which include - He brought immunization records noting past receipt of COVID-19, flu, and shingles vaccines. - He describes a sensation of numbness and tingling in his shoulder, which he has observed primarily while at rest or using a computer. - The patient has a history of bilateral rotator cuff tears, which he attributes to past wrestling activities. - He mentions a suspected umbilical hernia with some protrusion at the umbilical area, which he does not find to be painful or bothersome currently. - The patient also reports intermittent chest pressure that he initially thought was indigestion, but it has not improved with antacids. He had a past endoscopy that showed irritation but no ulceration. - He recently retired and describes a decrease in physical activity correlated with changes in his routine after leaving his job. 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 - Currently living with and 17-year-old daughter. - Engages in household activities and light exercise such as walking the dog. - Plans to increase physical activity with walking and weightlifting. - Previously engaged in more rigorous physical exercise, such as running. Review of Systems - Musculoskeletal: Reports numbness and tingling in shoulder; has history of bilateral rotator cuff tears. - Gastrointestinal: Reports chest pressure and past episodes of gastroesophageal irritation. - General: Denies current pain or discomfort associated with hernia. Physical Exam General: Cooperative and healthy appearing Nutritional Appearance: Well nourished Orientation/consciousness: Patient oriented x3 Limitations: No limitations Head: Normal to inspection General: Appearance normal, both eyes and all related structures Neck: Normal visual inspection Chest: Normal palpation of entire chest wall Respiratory: N ormal respiratory effort Neurology: Patient oriented x3, reports numbness and light tingling in the shoulder, possibly related to old rotator cuff injuries. Results Plan 1. Numbness And Tingling In Shoulder - Addressed as likely secondary to prior sports-related rotator cuff injuries. - Advising observation and gentle physical therapy to maintain range of motion. 2. Umbilical Hernia - Surveillance advised since currently asymptomatic. 3. Chest Pressure - Recommended EKG to rule out cardiovascular cause given history and symptoms. Discussion Notes During the consultation, I discussed potential diagnoses and treatment options for Mr. Francisco's current health concerns. The shoulder numbness and tingling were attributed to historical injuries, recommending conservative management and evaluation for physical rehabilitation exercises. The umbilical hernia required no immediate intervention but will continue to be monitored for symptomatic changes. For the reported chest pressure, I proposed conducting an EKG to evaluate cardiac health, given the symptoms resembling possible gastroesophageal issues discussed during his previous endoscopy. We agreed on these evaluations, with an understanding of their necessity to rule out more serious conditions before proceeding further. Patient Instructions - Monitor shoulder sensation; avoid activities that exacerbate symptoms. - Observe hernia for changes in size or discomfort. - Expect contact for scheduling EKG; continue current regimen for gastroesophageal irritation. - Follow up as needed with new or worsening symptoms. Orders: Orders AMB EKG-In Office Today R07.9 - Chest pain, unspecified
--- OUTSIDE RECORDS SUMMARY | 2024-11-27 17:35 | XMS_ITS | Data Portability ---
Author Organization [facility], , [facility] Address [address] [place] [address] Care Team Providers Care Final Inspector Balance Wheel Name Role Phone [facility] Wood Stainer Assessment No assessment recorded. Plan of Treatment Reminders Order Date Submit Date Provider Last Modified By Organization Details Last Modified Time Details Appointments None recorded. Lab CBC 2016 017 [facility], [address] [place], [address], 7 11:50:[address] referral - rest SSCP and diaphoresi s, with Left arm parasthesi as, lasting 90 mins. 5 days agoresolve d on own. Never seen by MD until today. feels well, no symptoms.N o evidence of AR on rest ECG done todayRisk factor is 51 year old male with FH; adopted-kn own biologic mother had an AR in her 50's.reaso nable story, deserves workup ASA 81refer Hamp CVA, likely nuclear stress test 2017 018 KASHMIR Not available 8 19:49:29 Procedures None recorded. Surgeries None recorded. Imaging electrocar diogram 2017 018 [facility], [address] [place], [address], 8 12:59:36 XR, chest 2016 017 [facility] (Imaging), [address], [place], [address], 03/22/201 7 09:17:16 Medication Orders omeprazole 40 mg capsule,de layed release 2017 018 [facility], [address] [place], [address], 8 15:27:34 azithromyc in 250 mg tablet 2016 017 [facility], [address] [place], [address], 8 14:42:33 Qvar 40 mcg/actuat ion Metered Aerosol oral inhaler 2016 017 [facility], [address] [place], [address], 8 14:42:43 Patient TargetsNo targets recorded. Patient InstructionsNo instructions recorded. Reason for Referral Wood Stainer Referral for Ch est pain rest SSCP and diaphoresis, with Left arm parasthesias, lasting 90 mins. 5 days agoresolved on own. Never seen by MD until today. feels well, no symptoms.No evidence of AR on rest ECG done todayRisk factor is 51 year old male with FH; adopted- known biologic mother had an AR in her 50's.reasonable story, deserves workup ASA 81refer Hamp CVA, likely nuclear stress test Referring Physician: Gavin Tate, Family Medicine, Encounter Date: 07/08/2017 Results Created Date Observation Date Name Description Value Unit Range Abnormal Flag Note LastModifiedBy Organization Detail LastModifiedTime 09/02/19 17 09/01/2016 CBC WBC 6.3 K/? ? ?L 4.2-9. 1 Not Available [address], [address], 09/01/2016 11:50:46 09/02/19 17 09/01/2016 CBC RBC 4.55 M/? ? ?L 4.63-6 .08 low Not Available [address], [address], 09/01/2016 11:50:46 09/02/19 17 09/01/2016 CBC HGB 14.4 g/dL 13.7-1 7.5 Not Available [address], [address], 09/01/2016 11:50:46 09/02/19 17 09/01/2016 CBC HCT 43.4 % 40.1-5 1.0 Not Available [address], [address], 09/01/2016 11:50:46 09/02/19 17 09/01/2016 CBC MCV 95.4 ? ? ?L 79.0-9 2.2 high Not Available [address], [address], 09/01/2016 11:50:46 09/02/19 17 09/01/2016 CBC MCH 31.6 pg 25.7-3 2.2 Not Available [address], [address], 09/01/2016 11:50:46 09/02/19 17 09/01/2016 CBC MCHC 33.2 g/dL 32.3-3 6.5 Not Available [address], [address], 09/01/2016 11:50:46 09/02/19 17 09/01/2016 CBC plt 113.0 K/? ? ?L 163.0- 337.0 low JOSEPHINE=V erifi ed by Cecile farley Not Available [address], [address], 09/01/2016 11:50:46 09/02/19 17 09/01/2016 CBC MPV 12.3 9.4-12 .4 Not Available [address], [address], 09/01/2016 11:50:46 09/02/19 17 09/01/2016 CBC neut% 55.5 % 34.0-6 7.9 Not Available [address], [address], 09/01/2016 11:50:46 09/02/19 17 09/01/2016 CBC neut# 3.5 1.8-5. 4 Not Available [address], [address], 09/01/2016 11:50:46 09/02/19 17 09/01/2016 CBC lymph % 26.0 % 21.8-5 3.1 Not Available [address], [address], 09/01/2016 11:50:46 09/02/19 17 09/01/2016 CBC lymph # 1.6 K/? ? ?L 1.3-3. 6 Not Available [address], [address], 09/01/2016 11:50:46 09/02/19 17 09/01/2016 CBC mono% 14.4 % 5.3-12 .2 high Not Available [address], [address], 09/01/2016 11:50:46 09/02/19 17 09/01/2016 CBC mono# 0.9 0.3-0. 8 high Not Available [address], [address], 09/01/2016 11:50:46 09/02/19 17 09/01/2016 CBC eo% 3.5 % 0.8-7. 0 Not Available [address], [address], 09/01/2016 11:50:46 09/02/19 17 09/01/2016 CBC eo# 0.2 0.0-0. 5 Not Available [address], [address], 09/01/2016 11:50:46 09/02/19 17 09/01/2016 CBC baso% 0.6 % 0.2-1. 2 Not Available [address], [address], 09/01/2016 11:50:46 09/02/19 17 09/01/2016 CBC baso# 0.0 0.0-0. 1 Not Available [address], [address], 09/01/2016 11:50:46 09/02/19 17 09/01/2016 CBC RDW-CV 12.6 % 11.6-1 4.4 Not Available [address], [address], 09/01/2016 11:50:46 07/08/19 18 07/08/2017 elect paris patelgr am Result Not Available [address], [address], 07/08/2017 14:52:47 08/30/19 18 08/29/2017 HbA1c (hemo globi n A1c), blood hemoglobin A1C 5.2 % 4.3-5. 8 Not Available [facility] (Out[facility] [address] [place] [address], [address], 08/29/2017 11:22:20 08/30/19 18 08/29/2017 CMP, serum or plasm a sodium 141 mmol/ L 133-14 6 Not Available [facility] ([facility]) [address] [place] [address], [address], 08/29/2017 11:45:54 08/30/19 18 08/29/2017 CMP, serum or plasm a potassium 4.4 mmol/ L 3.3-5. 1 Not Available [facility] (Out[facility]) [address] [place] [address], [address], 08/29/2017 11:45:54 08/30/19 18 08/29/2017 CMP, serum or plasm a chloride 100 mmol/ L 96-108 Not Available [facility] (Outpatient) [address] [place] [address], [address], 08/29/2017 11:45:54 08/30/19 18 08/29/2017 CMP, serum or plasm a CO2 27 mmol/ L 21-35 Not Available [facility] (Outpatient) [address] [place], [address], 08/29/2017 11:45:54 08/30/19 18 08/29/2017 CMP, serum or plasm a BUN 18 mg/dL 6-19 Not Available [facility] (Outpatient) [address] [place], [address], 08/29/2017 11:45:54 08/30/19 18 08/29/2017 CMP, serum or plasm a creatinine 0.90 mg/dL 0.5-1. 5 Not Available [facility] (Outpatient) [address] [place], [address], 08/29/2017 11:45:54 08/30/19 18 08/29/2017 CMP, serum or plasm a glucose 88 mg/dL 70-99 Not Available [facility] (Outpatient) [address] [place], [address], 08/29/2017 11:45:54 08/30/19 18 08/29/2017 CMP, serum or plasm a albumin 4.5 g/dL 3.9-4. 8 Not Available [facility] (Out[facility]) [address] [place], [address], 08/29/2017 11:45:54 08/30/19 18 08/29/2017 CMP, serum or plasm a total protein 7.7 g/dL 6.5-8. 0 Not Available [facility] (Out[facility]) [address] [place], [address], 08/29/2017 11:45:54 08/30/19 18 08/29/2017 CMP, serum or plasm a calcium 9.8 mg/dL 8.4-10 .3 Not Available [facility] (Outpatient) [address] [place], [address], 08/29/2017 11:45:54 08/30/19 18 08/29/2017 CMP, serum or plasm a alkaline phosphatase 78 U/L 39-117 Not Available [facility] (Out[facility]) [address] [place] [address], [address], 08/29/2017 11:45:54 08/30/19 18 08/29/2017 CMP, serum or plasm a total bilirubin 0.6 mg/dL 0.0-1. 2 Not Available [facility] (Out[facility]) [address] [place] [address], [address], 08/29/2017 11:45:54 08/30/19 18 08/29/2017 CMP, serum or plasm a AST 29 U/L 0-37 Not Available [facility] (Out[facility]) [address] [place] [address], [address], 08/29/2017 11:45:54 08/30/19 18 08/29/2017 CMP, serum or plasm a ALT 37 U/L 0-40 Not Available [facility] (Outpatient) [address] [place] [address], [address], 08/29/2017 11:45:54 08/30/19 18 08/29/2017 CMP, serum or plasm a globulin 3.2 g/dL 1-4.8 Not Available [facility] (Out[facility]) [address] [place] [address], [address], 08/29/2017 11:45:54 08/30/19 18 08/29/2017 CMP, serum or plasm a eGFR 99 mL/mi n/1.7 3m2 >59 If patie nt is black , multi ply resul t by 1.159 . The eGFR calcu latrowan n has gallo ed from the MDRD equat ion to the CKD-E PI equat ion as of August 16, 2017. Not Available [facility] (Out[facility]) [address] [place] [address], [address], 08/29/2017 11:45:54 08/30/19 18 08/29/2017 CMP, serum or plasm a anion gap 18 mmol/ L 10-20 Not Available [facility] ([facility]) [address] [place] [address], [address], 08/29/2017 11:45:54 08/30/19 18 08/29/2017 TSH, serum or plasm a TSH 4.83 uIU/m L 0.27-4 .20 high Not Available [facility] ([facility]) [address] [place] [address], [address], 08/29/2017 11:45:56 08/30/19 18 08/29/2017 CBC WBC 6.48 K/uL 3.40-1 1.20 Not Available [facility] ([facility]) [address] [place] [address], [address], 08/29/2017 11:46:35 08/30/19 18 08/29/2017 CBC RBC 4.67 M/uL 4.50-5 .50 Not Available [facility] ([facility]) [address] [place] [address], [address], 08/29/2017 11:46:35 08/30/19 18 08/29/2017 CBC HGB 14.7 g/dL 13.0-1 7.0 Not Available [facility] ([facility]) [address] [place] [address], [address], 08/29/2017 11:46:35 08/30/19 18 08/29/2017 CBC HCT 43.2 % 40.0-5 1.0 Not Available [facility] (Out[facility]) [address] [place] [address], [address], 08/29/2017 11:46:35 08/30/19 18 08/29/2017 CBC plt 93 K/uL 130-40 0 low Small plate let clump s prese nt. Not Available [facility] (Out[facility]) [address] [place] [address], [address], 08/29/2017 11:46:35 08/30/19 18 08/29/2017 CBC MCV 92.5 fL 79.0-9 8.0 Not Available [facility] ([facility]) [address] [place], [address], 08/29/2017 11:46:35 08/30/19 18 08/29/2017 CBC MCH 31.5 pg 27.0-3 4.8 Not Available [facility] ([facility]) [address] [place] [address], [address], 08/29/2017 11:46:35 08/30/19 18 08/29/2017 CBC MCHC 34.0 g/dL 31.5-3 6.0 Not Available [facility] ([facility]) [address] [place] [address], [address], 08/29/2017 11:46:35 08/30/19 18 08/29/2017 CBC RDW 12.0 % 10.8-1 4.6 Not Available [facility] ([facility]) [address] [place] [address], [address], 08/29/2017 11:46:35 08/30/19 18 08/29/2017 CBC MPV 12.5 fL 9.4-12 .4 high Not Available [facility] ([facility]) [address] [place] [address], [address], 08/29/2017 11:46:35 08/30/19 18 08/29/2017 CBC NRBC 0.00 /100_ WBCs Not Available [facility]) [address] [place] [address], [address], 08/29/2017 11:46:35 08/30/19 18 08/29/2017 CBC absolute NRBC 0.00 K/uL Not Available [facility]) [address] [place] [address], [address], 08/29/2017 11:46:35 08/30/19 18 08/29/2017 lipid panel , blood HDL 41 mg/dL Inter preta tion: Risk Level Males Decre ased >45 mg/dL [place] 40-45 mg/dL Incre ased <40 mg/dL Not Available [facility] (Outpatient) [address] [place], [address], 08/29/2017 12:07:21 08/30/19 18 08/29/2017 lipid panel , blood cholesterol 225 mg/dL 0-240 Not Available [facility] (Outpatient) [address] [place], [address], 08/29/2017 12:07:21 08/30/19 18 08/29/2017 lipid panel , blood triglyceride s 208 mg/dL 30-160 high Not Available [facility] (Out[facility]) [address] [place] [address], [address], 08/29/2017 12:07:21 08/30/19 18 08/29/2017 lipid panel , blood LDL 142 mg/dL 50-129 high LDL level s in terms of risk for coron deanne heart disea se: <100 mg/dL : Optim al 100-1 29 mg/dL : Near or above optim al 130-1 59 mg/dL : Borde rline high 160-1 89 mg/dL : High >190 mg/dL : Very High Not Available [facility] (Outpatient) [address] [place], [address], 08/29/2017 12:07:21 08/30/19 18 08/29/2017 lipid panel , blood cardiac risk ratio 5.5 3.4-5. 0 high Not Available [facility] (Outpatient) [address] [place], [address], 08/29/2017 12:07:21 08/30/19 18 08/29/2017 T4, free, serum free T4 1.2 NG/dL 0.9-1. 7 Not Available [facility] (Outpatient) [address] [place], [address], 08/29/2017 12:09:44 10/10/19 22 10/09/2021 SARS- COV-2 RNA (COVI D-19) , QUALI TATIV E NAAT sarscov2 NEGATI VE negati ve normal This test has been autho rized by the FDA under an Emerg ency Use Autho rizat ion(E UA) for you by autho rized labs. Not Available [facility] [address] [facility], [place], [address], 10/09/2021 14:28:13 09/02/19 17 09/01/2016 XR, chest [...] signed Readin g Physic mirella: Chirag arcos [facility] (Imaging) [address], [place], [address], 2016 14:51:17 07/08/19 18 elect rocar diogr am No observ ation record ed. [email or web address] Not Available 07/08 15:06:19 08/31/19 18 08/29/2017 NM, myoca rdial perfu martha scan No observ ation record ed. [facility] [address], [place], [address], 08/30/2017 10:28:08 08/31/19 18 08/29/2017 US, echoc ardio gram, trans thora cic, compl ete No observ ation record ed. [email or web address] Not Available 08/30 15:52:19 Result Notes Documentation Provider Name and Address Organization Details Recorded Time Xr, Chest : OBSERVATION: Chest 2 View History: Productive cough Comparison: Comparison Findings: The lungs are clear. The cardomediastinal silhouette and bony and soft tissues are normal for age. IMPRESSION: Normal POS: [facility] Comparison: Comparison Findings: The lungs are clear. The cardomediastinal silhouette and bony and soft tissues are normal for age. IMPRESSION: Normal POS: [facility] Findings: The lungs are clear. The cardomediastinal silhouette and bony and soft tissues are normal for age. IMPRESSION: Normal POS: [facility] Electronically signed Reading [facility] 14:51:17 Problems Name Problem SNOMED Code Status Onset Date Resolution Date Notes Provider Name and Address Organization Details Recorded Time Diverticulitis of colon 438555750 Active Gavin Tate MD [address] [place] [address], [address], [facility] 6 10:22:50 Vitamin D deficiency 68162805 Active 2015 Gavin Tate MD [address] [place] [address], [address], [facility] 6 13:31:04 Hypothyroidism 96790973 Active 2018 Toyin Troncoso [facility] 9 10:52:54 Problem Notes None recorded. Procedures Surgical History Date Name Laterality Status Provider Name and Address Organization Details Recorded Time 2 Payton - EGD completed Velasquez Cain MD [address] [place] [address], [phone], [facility] 10/12/2021 09:00:20 2 Payton - Colonoscopy completed Velasquez Cain MD [address] [place] [address], [phone], [facility] 10/12/2021 09:02:25 7 Colonoscopy with biopsy completed Ever Carias NP [address] [place] [address], [phone], [facility] 07/16/2016 09:06:41 7 Carlos - Colonoscopy completed Marco Antonio Gonzalez [address] [place] [address], [phone], [facility] 07/09/2016 10:28:15 Imaging Results None recorded. Procedure Notes None recorded. Medical Equipment None Reported. Allergies Allergen ID Allergen Name Allergen Category Reaction Reaction Severity Criticality Documentation Date Start Date Code Code System Note Provider Name and Address Organization Details Recorded Time 555699 ampicilli n medicatio n rash Not available Not available 09/19/2014 733 RxNorm Didi Dalton [facility], [facility] 5 09:22:52 85910 amoxicill in medicatio n rash Not available Not available 11/09/2011 723 RxNorm Soraya Polidoro, RECREATION PROGRAMMER [facility] 2 10:26:37 [address]505 Keflex medicatio n rash Not available Not available 11/09/2011 10171 7 RxNorm Soraya Polidoro, RECREATION PROGRAMMER [facility], [facility] 2 10:26:37 Medications Name Sig Start Date [...] Available Vitals Date Recorded Body height Body mass index (BMI) Body weight Body temperature Oxygen saturation Oxygen saturation in Arterial blood by Pulse oximetry Heart rate Systolic blood pressure Diastolic blood pressure Provider Name and Address Organization Details Last Updated DateTime 8 172.72 cm 28.6 kg/m2 55999.3 7 g 98.9 [degF] 97 % 97 % 97 /min 118 mm[Hg] 90 mm[Hg] ALYSON Fermin [facility] 8 14:46:18 Date Recorded Body height Body weight Body mass index (BMI) Body temperature Oxygen saturation Oxygen saturation in Arterial blood by Pulse oximetry Heart rate Systolic blood pressure Diastolic blood pressure Provider Name and Address Organization Details Last Updated DateTime 7 374.65 cm 71884.6 6 g 6.1 kg/m2 98.8 [degF] 96 % 96 % 93 /min 138 mm[Hg] 90 mm[Hg] Estela Haas [facility] 7 15:10:55 Date Recorded Body height Body mass index (BMI) Body weight Heart rate Systolic blood pressure Diastolic blood pressure Provider Name and Address Organization Details Last Updated DateTime 8 172.72 cm 29.4 kg/m2 84048.0 3 g 86 /min 126 mm[Hg] 82 mm[Hg] Mei Schwartz LPN [facility] 8 15:45:03 Date Recorded Body height Body weight Body mass index (BMI) Heart rate Body temperature Oxygen saturation Oxygen saturation in Arterial blood by Pulse oximetry Systolic blood pressure Diastolic blood pressure Provider Name and Address Organization Details Last Updated DateTime 7 172.72 cm 70038.5 9 g 28.1 kg/m2 64 /min 98 [degF] 96 % 96 % 138 mm[Hg] 84 mm[Hg] Wil echols LPN [facility] 7 08:12:39 Social History Question Answer Notes LastModified by Organizat ion Details LastModified Time Tobacco Smoking Status Former Smoker Soraya Delaney, IZABELLA lerma, [facility] 11/09/2011 10:26:37 What Is Your Level Of Caffeine Consumption? Moderate 2 Cups Tea Daily Except For Coffee On Weekends Information not available 09/19/2014 How Much Tobacco Do You Chew? None Information not available 01/09/2015 When Did You Quit Smoking? 16+yearssinc elastcigaret [...] not available 09/19/2014 Sex: Unknown Functional Status Question Answer Note LastModified by Organizat ion Details LastModified Time What is your level of alcohol consumption? Moderate 2 drinks daily Information not available 09/19/2014 What is your occupation? [employer] Information not available 11/09/2011 Mental Status None recorded. Family History Nothing Reported Notes:adopted . known biolog ic mother had an AR in her 50's. No maternal sig medical hx. except diabetes. esoph [place]. Medical History No medical history recorded. Immunizations Vaccine Type Date Status Note Provider Nam e and Address Organization Details Recorded Time Tdap 2 completed Not Available [facility] 06/30/2019 02:27:39 pneumococcal polysaccharide PPV23 2 completed Not Available [facility] 06/30/2019 02:14:55 influenza, unspecified formulation 6 completed Wil Patel LPN [facility] 03/05/2016 18:01:40 Past Encounters Encounter ID Performer Location Encounter Start Date Encounter Closed Date Diagnosis/Indication Diagnosis SNOMED-CT Code Diagnosis ICD10 Code Diagnosis Note [id number] Gavin Tate MD , [facility], OFFICE [address] [place] [address] 11/09/2011 09:55:14 11/09/2011 10:58:33 [id number] Gavin Tate MD [facility], OFFICE [address] [place] [address] 11/14/2012 09:57:58 11/14/2012 11:01:15 [id number] Amena Blunt MD [facility], OFFICE [address] [place] [address] 12/19/2012 09:13:47 12/19/2012 10:52:13 [id number] Madelyn Veronica PA-C [facility], OFFICE [address] [place] [address] 09/19/2014 09:13:09 09/19/2014 09:47:33 Cough 20094769 push fluids, humidify air. mucinex, tea with honey. probiotics encouraged . follow up if symptoms persist or worsen. 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 Adult heal th examination [id number] see Risk Assessment and Lifestyle Change Counseling section above [id number] Josi Newman, OT Physical Therapy, [facility] [address] [place] [address] 01/08/2015 15:58:00 01/09/2015 12:33:20 Acquired trigger finger 4202948 [id number] Gavin Tate MD , [facility], OFFICE [address] [place] [address] 01/09/2015 08:34:39 01/09/2015 09:21:55 Adult health examination [id number] see Risk Assessment and Lifestyle Change Counseling section above Counseling 941329805 Pain in toe 216330987 L> >R due to OA referred Dr Abdi 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 agrees to see Jose Rafael Childs to discuss surgical options. [id number] Susy Iglesias MD , [facility], OFFICE [address] [place] [address] 10/14/2015 13:32:03 10/14/2015 14:03:05 Anterior knee pain 634338547 M25.569 M25.562 since a fall 2 y a , worsened lately after vigorous exersises, gael possible Fx of patella, will FU aftwr XR for definite desision about treatment options [id number] Gavin Tate MD , [facility] [place], OFFICE [address] [place] [address] 10/21/2015 09:31:24 10/21/2015 15:24:34 Diverticulitis of colon 350419326 K57.32 day two of antibiotis c, I reassurred him that his abd pain with sudden movements should remit over next 4 days. dz cause of anatomy, recurrence , signs of and longterm treatment discussed. he may likely have another attack, but he is well aware of how it will present. Q's answered. i informed him that study has disproven the old dietary restrictio ns. 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 HP neg agrees to complete a month PPI or double dose ranitidine Hernia of anterior abdominal wall 943839021 K43.9 mild in size, progressiv e, upper midline ventral hernias, inevitable progressio n self reduction, ER indication s discussed. agrees to see Jose Rafael Childs to discuss surgical options. [id number] Gavin Tate MD , [facility], OFFICE [address] [place] [address] 03/05/2016 17:42:59 03/08/2016 10:09:56 Diverticulitis of colon 540940095 K57.32 tightness llq, soft stool, not movement or meal related, no fever. is tuesday so concerned. appears to be same as his presentati on s in 10/2015, will retreat. he will take probiotics . prior Pt presents for 10/19/15 [facility] and 10/20/15 [facility] f/u-LLQ pain and nausea, no diarrhea, no fever.. Had U/A, normal, had CT done at [facility], turned out to be diverticul itis. Given antibiotic s and pain meds Screening for malignant neoplasm of colon 205711942 Z12.11 Referral for a DIRECT booked colonoscop y. This patient is a healthy ASA Class 1 or 2 patient (only mild systemic disease), or a STABLE, well controlled insulin dependent diabetic. They do not have serious cardiac disease ie AR/angiopl asty within 1 year, symptomati c CHF; renal failure with CKD 4 or 5; take Coumadin, Plavix, Aggrenox, etc. 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 HP neg agrees to complete a month PPI or double dose ranitidine Hernia of anterior abdominal wall [id number] K43.9 mild in size, progressiv e, upper midline ventral hernias, inevitable progressio n self reduction, ER indication s discussed. agrees to see Jose Rafael Childs to discuss surgical options. 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 he may likely have another attack, but he is well aware of how it will present. Q's answered. i informed him that study has disproven the old dietary restrictio ns. Anterior knee pain 00538 3006 M25.569 M25.562 historical . since a fall 2 y a , worsened lately after vigorous exercises, gael possible Fx of patella, will FU after XR for definite decision about treatment options Pain in toe 964051485 M7 9.676 historical . 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 left pinky locks up in AM seen Josi Newman Gastritis [id number] K29.70 prior- appears to have recurred 10/2015, will retreat a month. HP neg agrees to complete a month PPI or double dose ranitidine Hernia of anterior abdominal wall [id number] K43.9 stable with valsalva. mild in size, progressiv e, upper midline ventral hernias, inevitable progressio n self reduction, ER indication s discussed. agrees to see Jose Rafael Childs to discuss surgical options. Family his tory of diabetes mellitus 132483746 Z83.3 [id number] Velasquez Oleary MD , 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 This patient is a healthy ASA Class 1 or 2 patient (only mild systemic disease), or a STABLE, well controlled insulin dependent diabetic. They do not have serious cardiac disease ie AR/angiopl asty within 1 year, symptomati c CHF; renal failure with CKD 4 or 5; take Coumadin, Plavix, Aggrenox, etc. Pain in toe 085445716 M7 9.676 historical .L>>R due to OA referred Dr Abdi Gastritis [id number] K29.70 historical .appears to have recurred 10/2015, will retreat a month. HP neg agrees to complete a month PPI or double dose ranitidine Diverticul itis of colon 026966790 K57.32 tightness llq, soft stool, not movement or meal related, no fever. is tuesday so concerned. appears to be same as his presentati on s in 10/2015, will retreat. he will take probiotics . prior Pt presents for 10/19/15 AEIOU and 05/09/16 CD[facility] f/u-LLQ pain and nausea, no diarrhea, no fever.. Had U/A, normal, had CT done at [facility], turned out to be diverticul itis. Given antibiotic s and pain meds Hernia of anterior abdominal wall 169011367 K43.9 mild in size, progressiv e, upper midline ventral hernias, inevitable progressio n self reduction, ER indication s discussed. agrees to see Jose Rafael Childs to discuss surgical options. Anterior knee pain 40437 3006 M25.569 M25.562 historical .since a fall 2 y a , worsened lately after vigorous exersises, gael possible Fx of patella, will FU aftwr XR for definite desision about treatment options [id number] Marco Antonio Carlos [facility], [facility] [address] [place] [address] 07/09/2016 09:12:17 07/09/2016 13:48:18 [id number] Josie Villarreal MD , [facility], OFFICE [address] [place] [address] 07/30/2016 15:02:22 07/30/2016 15:28:50 Acute upper respiratory infection 63358372 J06.9 Seems to have cleared one URI, [...] or failure to resolve in 2-4 weeks. [id number] Gavin Tate MD , [facility], OFFICE [address] [place] [address] 09/01/2016 07:52:21 09/01/2016 08:32:31 Cough [id number] R05 09/01/16his myalgias , bedbound 2 days of influenza like syndrome of 07/30/16 resolvedst ill no feverspleu ritic cough talisha in AM, productive , doeHR elevated, noted in bedno chest pressure.e xam is benign no evid of sig CP dz.likely a second infection which is clearing.x ray, bloodwork to be sure [id number] Gavin Tate MD , [facility], OFFICE [address] [place] [address] 07/08/2017 14:28:11 07/08/2017 15:31:21 Chest pain 12982834 R07.9 rest SSCP and diaphoresi s, with Left arm parasthesi as, lasting 90 mins. 5 days agoresolve d on own. Never seen by MD until today. feels well, no symptoms. No evidence of AR on rest ECG done today Risk factor is 51 year old male with FH;adopted -known biologic mother had an AR in her 50's.deser ves workupASA 81refer Hamp CVA, likely nuclearstr ess test Gastroesop hageal reflux disease [id number] K21.9 caffeine drinking againfaile d ranitidine for this condition in the pastomep alleviates CP even when taken every few days, will renew Palpitations 22776022 R0 0.2 from decades ago [id number] Gavin Tate MD , [facility], [address]ICE [address] [place] [address] 08/30/2017 15:34:07 09/05/2017 13:27:08 Hypothyroidism 81189694 E03.9 bord high 2018we discussed need to follow, ordered for mid 2018 Chest pain 81465686 R07. 9 card consulted, we discussed results of echo and thallium both negative. Chest pain is not anginal therefore. end of workup rest SSCP and diaphoresi s, with Left arm parasthesi as, lasting 90 mins. 5 days agoresolve d on own. Never seen by MD until today. feels well, no symptoms. No evidence of AR on rest ECG done today Risk factor is 51 year old male with FH;adopted -known biologic mother had an AR in her 50's.deser ves workupASA 81refer Hamp CVA, likely nuclearstr ess test Gastroesop hageal reflux disease [id number] K21.9 caffeine drinking againfaile d ranitidine for this condition in the pastomep alleviates CP even when taken every few days, will renew Palpitations 42439035 R0 0.2 from decades ago Pityriasis rosea 0774480 4 L42 anterior chestovate M-Papules are aligned with skin folds with herald patch over left anterior shoulderas symptomati cno need to treatthis is early stagei discussed that he can expect peeling as lesions mature over many weeks.caus e course of and self limited benign nature discussed [id number] Velasquez Cain MD [facility], [address] [address] 10/12/2021 07:01:50 10/12/2021 13:41:37 Health Concerns Section Related Observation LastModified by Organization Detai ls LastModified Time None Recorded Concern Status LastModified by Organization Details LastModified Time None Recorded Advance Directives Directive None Recorded Payers Insurance Date Sequence Insurance Name Policy Number Policy Gould Covered Member ID Gould Member ID Guarantor Name 10/23/2021 1 [facility] [employer] [id number] Nolan Cervantes [id number] Nolan Cervantes Notes Date Note Type Note [...] Co-workers all have colds Josie Villarreal MD [address] [place] [address], [phone], [facility] 08/02/2016 12:19:06 09/01/2016 text/html VMG URI Flu [...] Co-workers all have colds Gavin Tate MD [address] [place] [address], [phone], [facility] [place] 09/01/2016 08:33:36
== END 2024-11-27 15:51 | disposition home or self-care (01) ==
LOC: HO.HMCSH 15:06
PROVIDERS: PCP Internal Medicine; Visit Provider Internal Medicine
DX: Z00.00 Encounter for general adult medical examination without abnormal findings (principal); R07.89 Other chest pain

== ENCOUNTER → 2024-11-27 15:06 | Outpatient (BNVA) | payer BC, SELFPAY | PROVIDERS: PCP Internal Medicine; Visit Provider Internal Medicine | DX: Z00.00 Encounter for general adult medical examination without abnormal findings (principal); R20.0 Anesthesia of skin; R20.2 Paresthesia of skin; R07.89 Other chest pain | CPT/HCPCS: 93005; 96127 ==

== ENCOUNTER 2025-03-11 08:46 | Outpatient (AMB) | payer BC, SELFPAY ==
[2025-03-11 08:51] VITALS: BP 143/83; PULSE 66; RESP 14; TEMP 36.8; O2SAT 98; BMI 28.1
--- NOTE | 2025-03-11 08:51 | MHC.PC.OV ---
Vital Signs 03/11/25 08:51 Height 5 ft 8 in Weight 185 lb BMI 28.1 BP 143/83 H Respiration 14 Pulse 66 Pulse Source Pulse Oximeter Temp 98.2 F Temp Source Temporal Artery Scan Pulse Oximetry (%) 98 Oxygen Delivery Method Room Air Intake Visit Reasons: bump on thumb Log Sorting Supervisor Required: No Accompanied by: Self / Same As Patient Allergies amoxicillin Allergy (Severe, Verified 11/27/24 15:03) Rash cephalexin (From Keflex) Allergy (Severe, Verified 11/27/24 15:03) Rash ampicillin Allergy (Verified 11/27/24 15:03) Rash Tobacco use date assessed: 11/27/24 Dental Screening Dental Screen Date: 11/27/24 [facility] Medical History Vitamin D deficiency Headache Depression Right-sided low back pain without sciatica Coagulopathy, thrombocytopenia, transient, remote, resolved Environmental allergies Herniated lumbar intervertebral disc Hypercholesteremia History of diverticulitis Hx of heartburn Chronic back pain Epigastric hernia Surgical History History of colonoscopy (~10/12/21) History of wisdom tooth extraction History of microdiscectomy History of vasectomy Social History Housing: House Alcohol intake: current Alcohol intake frequency: 3 or more drinks per day Patient Tobacco Use Status: Former Tobacco user service: No Current occupational status: retired Cognitive needs: No Hearing needs: No Vision needs: Yes (rx glasses) Questionnaire PHQ-9 Over the last 2 weeks, how often have you been bothered by any of the following problems? 1. Little interest or pleasure in doing things: not at all 2. Feeling down, depressed, or hopeless: not at all 3. Trouble falling or staying asleep, or sleeping too much: not at all 4. Feeling tired or having little energy: not at all 5. Poor appetite or overeating: not at all 6. Feeling bad about yourself - or that you are a failure or have let yourself or your family down: not at all 7. Trouble concentrating on things, such as reading the newspaper or watching television: not at all 8. Moving or speaking so slowly that other people could have noticed. Or the opposite - being so fidgety or restless that you have been moving around a lot more than usual: not at all 9. Thoughts that you would be better off or of hurting yourself in some way: not at all Total score: 0 Source: Developed by Drs. Gavin Corral, Estela Lopez, Arnel Pimentel and colleagues, with an educational tatyana from [employer]. Thrive Questionnaire Date Thrive assessed: 11/27/24 AUDIT C Alcohol Use Questionnaire (AUDIT-C) 1. How often do you have a drink containing alcohol?: 4 or more times a week 2. How many drinks containing alcohol do you have on a typical day when you are drinking?: 3 or 4 3. How often do you have six or more drinks on one occasion?: Never Total Score: 5 Score Reviewed/Action Taken: No LUIS FERNANDO-7 AMB Questionnaire LUIS FERNANDO-7 Date LUIS FERNANDO - 7 assessed: 11/27/24 Feeling nervous, anxious, or on edge: 0 = Not at all Not being able to stop or control worryin = Not at all Worrying too much about different things: 0 = Not at all Trouble relaxin = Not at all Being so restless that it is hard to sit still: 0 = Not at all Becoming easily annoyed or irritable: 0 = Not at all Feeling afraid as if something awful might happen: 0 = Not at all Total LUIS FERNANDO-7 score (0-4 normal; 5-9 mild; 10-14 moderate; 15-21 severe): 0 Source: Developed by Drs. Gavin Corral, Estela Lopez, Arnel Pimentel and colleagues, with an educational tatyana from [employer]. Physical exam (Primary Care) Vital Signs: Last Vital Signs Temp 98.2 F 03/11/25 08:51 Pulse 66 03/11/25 08:51 Resp 14 03/11/25 08:51 BP 143/83 H 03/11/25 08:51 Pulse Ox 98 03/11/25 08:51 Oxygen Delivery Method Room Air 03/11/25 08:51 BMI result Body Mass Index 28.1 Tobacco/Smoking Status: Tobacco use Status Tobacco use date assessed 11/27/24 03/11/25 08:53 Patient Tobacco Use Status Former Tobacco user 03/11/25 08:53 PHQ-9: PHQ-9 Score PHQ-9: Total score 0 03/11/25 09:25 Thrive Assessment: Date of Thrive Assessment Date Thrive assessed 11/27/24 03/11/25 08:53 Office Procedures Flu Questionnaire Does the patient have a severe egg allergy?: No Does the patient have severe life threatening allergies?: No Does the patient have a fever or illness today?: No Has the patient ever had Guillain-Stanhope Syndrome?: No Has the patient ever had any past reaction to a flu shot?: No Immunizations Fluarix [id number] (PF) 45 mcg (15 mcg x 3)/0.5 mL IM syringe Performing Provider: Neal Lanza MD [facility] Administered by: ALYSON Arriola on 03/11/25 09:01 Dose Route Admin Location Dispensed Lot Number Expiration Date NDC Spud Sorter 0.5 mL IM Left Deltoid 0.5 mL [id number] 12/10/25 94565-256-07 [employer] VIS Given Date VIS Provided VIS Publication Date 03/11/25 Single Vaccine 24 Eligibility Eligibility Date Funding Source Not VFC Eligible 03/11/25 Private Boostrix Tdap 2.5 Lf unit-8 mcg-5 Lf/0.5 mL intramuscular syringe Performing Provider: Neal Lanza MD Performing Location: [facility] Administered by: Tami Meier CMA on 03/11/25 09:26 Dose Route Admin Location Dispensed Lot Number Expiration Date ND Spud Sorter 0.5 mL IM Right Deltoid 0.5 mL [id number] 05/02/27 61805-772-07 [employer] Total Dispensed Waste 0.5 mL 0 % VIS Given Date VIS Provided VIS Publication Date 03/11/25 Single Vaccine 21 Eligibility Eligibility Date Funding Source Not VFC Eligible 03/11/25 Private Coding Diagnoses Synovial cyst M71.30 Assessment & Plan Assessment & Plan (1) Synovial cyst: Code(s): M71.30 - Other bursal cyst, unspecified site Plan: Base of thumb, right hand. Reassurance Plan History of Present Illness - The patient is a 59-year-old male presenting with a growth on the thumb and for preventative care measures. - The growth on the thumb appeared suddenly and was identified as a ganglion cyst by the physician. - The patient reports no pain but notes weakness in the thumb, suspecting arthritis as a contributing factor. - The patient was due for a tetanus vaccination, which was addressed during the visit. Social History Review of Systems - Musculoskeletal: Reports weakness in the thumb, denies pain Physical Exam General: Cooperative and healthy appearing Nutritional Appearance: Well nourished Orientation/consciousness: Patient oriented x3 Limitations: No limitations Head: Normal to inspection General: Appearance normal, both eyes and all related structures Neck: Normal visual inspection Chest: Normal palpation of entire chest wall Respiratory: N ormal respiratory effort Right hand: Thumb: Small cyst at the base of thumb on the tendon Results Plan - Monitor the ganglion cyst on the thumb; no intervention required unless it becomes painful or obstructive. - Administer tetanus vaccination during the visit. Discussion Notes I explained to the patient that the growth on his thumb is a ganglion cyst, which is not concerning unless it becomes painful or obstructive. We discussed that no immediate treatment is necessary unless symptoms worsen. I also confirmed that he is due for a tetanus vaccination, which we will administer today. Patient Instructions - Monitor the thumb for any changes in the cyst, such as increased pain or obstruction. - Receive the tetanus vaccination today as planned. Orders: Orders Influenza 0723-2225 Immunization Today Z23 - Encounter for immunization TDaP Immunization Today Z23 - Encounter for immunization
--- OUTSIDE RECORDS SUMMARY | 2025-03-11 09:10 | XMS_ITS | Encounter Summary ---
Author Organization [facility] Address [address] [facility] [address] [place] [address] Phone Care Team Providers Care Physical Therapy Supervisor Name Role Phone Gavin Dawn DO Primary Care Provider + [phone] Encounter Details Date Type Department Care Team (Late st Contact Info) Description 05/23/2023 Procedure Pass [facility], Ct Scan - [address] [address] Social History Tobacco Use Types Packs/Day Years Used Date Smoking Tobacco: Former Smokeless Tobacco: Never Alcohol Use Standard Drinks/Week Comments Yes 2 (1 standard drink = 0.6 oz pur e alcohol) daily Education Answer Date Recorded Are you interested in more education? Not on vanessa e 10/08/2022 Are you concerned about learning? Not on file 10/08/2022 No 10/08/2022 No 10/08/2022 Digital Access Answer Date Recorded No 11/08/2022 No 11/08/2022 Reliable internet access at home? Not on file 11/08/2022 Device with a working camera? Not on file Intimate Partner Violence Answer Date R ecorded Are you denied basic needs s uch as food, clothing, or medical care? No 05/23/2023 In the past 12 months have y ou been in a relationship with a person who hurts, threatens, or tries to control you? No 05/23/2023 Are you denied basic needs s uch as food, clothing, or medical care? No 05/23/2023 In the past 12 months have y ou been in a relationship with a person who hurts, threatens, or tries to control you? No 05/23/2023 Sex and Gender Information Value Date Recorded Sex Assigned at Not on file Legal Sex Male 9:40 PM EDT Gender Identity Not on file Sexual Orientation Not on file documented as of this encounter Functional Status * Calculated C-SSRS Risk Score (Lifetime/Recent) Answer Date of Assessment Author No Risk Indicated 05/23/2023 11:17 AM Ginger Grider RN * [place] Suicide Severity Rating Scale (Screener/Recent Self-Report) Question Answer Date of Assessment Author 1. Wish to be (Past 1 Month) No 05/23/2023 11:17 AM Ginger Grider RN 2. Non-Specific Active Suici zora Thoughts (Past 1 Month) No 05/23/2023 11:17 AM Juliette Grider RN 6. Suicidal Behavior (Lifetime) No 11:17 AM Ginger Grider RN documented as of this encounter Plan of Treatment Not on file documented as of this encounter Visit Diagnoses Not on filedocumented in this encounter Care Teams Physical Therapy Supervisor Relationship Specialty Start Date End Date Gavin Dawn DO [address] [place] [id number] PCP - General Internal Medicine 10/12/21 documented as of this encounter Additional Source Comments The information contained in this document represents components of the legal health record. It is not the complete legal health record.[facility]
--- OUTSIDE RECORDS SUMMARY | 2025-03-11 09:10 | XMS_ITS | Encounter Summary ---
Author Organization [facility] Address [address] [facility] [address] [place] [address] Phone Care Team Providers Care Cigar Packing Examiner Name Role Phone Gavin Dawn DO Primary Care Provider + [phone] Encounter Details Date Type Department Care Team (Late st Contact Info) Description 05/23/2023 Procedure Pass [facility], Ct Scan - [address] [address] Social History Tobacco Use Types Packs/Day Years [...] 05/23/2023 11:17 AM Ginger Grider RN * [place] Suicide Severity Rating Scale (Screener/Recent Self-Report) Question [...] on filedocumented in this encounter Care Teams Cigar Packing Examiner Relationship Specialty Start Date End Date Gavin Dawn DO [address] [place] [address] PCP - General Internal Medicine 10/12/21 documented as of this encounter Additional Source Comments The information contained in this document represents components of the legal health record. It is not the complete legal health record.[facility]
--- OUTSIDE RECORDS SUMMARY | 2025-03-11 09:10 | XMS_ITS | Encounter Summary ---
Author Organization [facility] Address [address] [facility] [address] [place] [phone] Phone Care Team Providers Care Panel Assembler Name Role Phone Gavin Tate MD Primary Care Provider [phone] Gavin Dawn DO Primary Care Provider Reason for Referral * MRI/CAT Scan - Closed Specialty Diagnoses / Procedures Referred By Jeff rivera Referred To Contact Radiology Diagnoses Precordial pain Procedures NC Myocardial Perfusion Stress Single NC Myocardial Perfusion Exercise Multiple Jose Rafael Nicole MD Phone: tel: fax: Referral ID Status Reason Start Date Expiration Date Visits Re quested Visits Authorized [id number] Closed 08/10/2017 08/10/2018 1 1 Encounter Details Date Type Department Care Team (Late st Contact Info) Description 08/29/2017 Ancillary Orders [facility] [address], [address] [place] [address] Jose Rafael Nicole MD [address] [place] [address] Precordial pain Social History Tobacco Use Types Packs/Day Years Used Date Smoking Tobacco: Former Smokeless Tobacco: Never Alcohol Use Standard Drinks/Week Comments Yes 2 (1 standard drink = 0.6 oz pur e alcohol) daily Sex and Gender Information Value Date Recorded Sex Assigned at Not on file Legal Sex Male 9:40 PM EDT Gender Identity Not on file Sexual Orientation Not on file documented as of this encounter Plan of Treatment Not on file documented as of this encounter Results * NC Myocardial Perfusion Stress Single (08/29/2017 11:03 AM EDT) Anatomical Region Laterality Modality Heart Ultrasound Narrative 08/29/2017 3:39 PM EDT Normal study. There is no evidence of myocardial infarction or ischemia. Normal LV size and function with no regional wall motion abnormalities. Very low likelihood of hemodynamically significant coronary artery disease. Low risk study for myocardial events or cardiac in the next two years. Study Quality Overall image quality is good. There are no artifacts present. NC Study Impression Left ventricular perfusion is normal. Interpretation of the study indicates that it is normal. This is a low risk study. There is no prior study for comparison. Stress Test Result Patient exercised for 10 minutes on a Hayder protocol achieving 13.3 METs. Test terminated due to fatigue. Maximum heart rate achieved was 1 71 bpm which represents 101% of the MPHR. 1. Baseline EKG showed normal sinus rhythm with nonspecific ST-T wave of normalities. No ischemic EKG changes with exercise. 2. No chest pain. 3. Baseline EKG was 140/98, up to 198/94 at peak exercise and 150/88 on discharge from the stress lab. Good functional capacity for age. 4. No ectopy. Conclusion: Normal stress test. Nuclear images pending and a be reported separately. Nuclear Cardiology Measurements End systolic (mL): 33 End diastolic (mL): 94 Ejection Fraction (%): 65 Ejection Fraction: Normal (50-69%) The left ventrical is functioning with normal perfusion quality. Patient was injected with 11.9mCi of Tc99m Sestamibi Rt AC IV during stress NC Conclusion Normal study. There is no evidence of myocardial infarction or ischemia. Normal LV size and function with no regional wall motion abnormalities. Very low likelihood of hemodynamically significant coronary artery disease. Low risk study for myocardial events or cardiac in the next two years. Perfusion Scoring Stress Summed Score: 0 Percent Normal: 0.00% The left ventricular perfusion is normal. us Jose Rafael Nicole MD CV NM CARDIAC Final Re sult documented in this encounter Visit Diagnoses Diagnosis Precordial pain Precordial pain documented in this encounter Care Teams Panel Assembler Relationship Specialty Start Date End Date Gavin Tate MD [address] [place] [address] [email or web address] PCP - General Internal Medicine 07/18/17 10/11/21 Gavin Dawn DO [address] [place] [address] PCP - General Internal Medicine 10/12/21 documented as of this encounter Additional Source Comments The information contained in this document represents components of the legal health record. It is not the complete legal health record.[facility]
--- OUTSIDE RECORDS SUMMARY | 2025-03-11 09:10 | XMS_ITS | Clinical Summary ---
Author Organization [facility] Address [address] [facility] [address] [place] [address] Phone Care Team Providers Care Patient Assessment Coordinator Name Role Phone Gavin Dawn DO Primary Care Provider Allergies Active Allergy Reactions Criticality Noted Date Comments Amoxicillin Rash with Skin Desquamation 018 Ampicillin 05/23/2023 Cephalexin Rash with Skin Desquamation 08/10/19 18 Medications omeprazole (PRILOSEC) 10 MG capsule Take 10 mg by mouth daily. Active aspirin 81 MG EC tablet Take 81 mg by mouth daily. Active Active Problems Problem Noted Date Diagnosed Date Precordial pain 08/10/2017 Immunizations Immunization Administration Dates Next Due COVID-19 (Pre-04/04) Pfizer Vaccine, mRNA, PF ,09/28/2020 Family History Medical History Relation Comments Heart attack Maternal Grandfather Heart attack Maternal Grandmother Coronary artery disease Mother Diabetes mellitus Mother Esophageal cancer Mother Relation Status Comments Maternal Grandfather Maternal Grandmother Mother Social History Tobacco Use Types Packs/Day Years [...] on file Sexual Orientation Not on file Last Filed Vital Signs Vital Sign Reading Time Taken Comments Blood Pressure 148/100 07/12/2024 4:04 PM EST Pulse 81 07/12/2024 4:04 PM EST Temperature 36.7 C (98.1 F) 07/12/2024 4:04 PM EST Respiratory Rate 16 07/12/2024 4:04 PM EST Oxygen Saturation 98% 07/12/2024 4:04 PM EST Inhaled Oxygen Concentration - - Weight 86.2 kg (190 lb) 05/23/2023 12:02 PM EST Height 170.2 cm (5' 7 ) 05/23/2023 12:02 PM EST Body Mass Index 29.76 05/23/2023 12:02 PM EST Plan of Treatment Health Maintenance Due Date Last Done Comments DEPRESSION SCREENING 1977 SMOKING Hx and SMOKELESS TOBACCO SCREENING 1978 HEPATITIS C SCREENING 09/08/1983 HIV ONE-TIME SCREENING (18-65 YEARS) 09/08/1983 COLOGUARD 2010 COLONOSCOPY 2010 COLORECTAL CANCER SCREENING 2010 FIT TEST 2010 FOBT 2010 SIGMOIDOSCOPY 2010 VIRTUAL COLONOSCOPY 2010 PNEUMOCOCCAL VACCINES (50+ years) (2 of 2 - PCV) 09/08/2015 11/09/2011 Adult Td,Tdap Booster 11/08/2021 11/09/2011 LIPID PANEL 08/29/2022 08/29/2017 INFLUENZA VACCINE (#1) 2025 4, 03/24/2023, 03/18/2022, Additional history exists SCREENING FOR DIABETES 05/23/2026 05/23/2023 ZOSTER VACCINES Completed 06/24/2022, 03/18/2022 COVID-19 VACCINE Completed 03/08/2024, 05/2023, 06/24/2022, Additional history exists HEPATITIS A VACCINES Aged Out No long er eligible based on patient's age to complete this topic HIB VACCINES Aged Out No longer eligi ble based on patient's age to complete this topic MENINGOCOCCAL VACCINES (ACWY) Aged Out No longer eligible based on patient's age to complete this topic MENINGOCOCCAL VACCINES (B) Aged Out N o longer eligible based on patient's age to complete this topic Medical Devices Not on file Procedures Procedure Name Priority Date/Time Associated Diagnosis Comments LIPID PANEL Routine 08/29/2017 8:08 AM EDT Precordial pain from Last 3 Months or Most Recently Relevant to Health Maintenance Results * (ABNORMAL) Lipid panel (08/29/2017 8:08 AM EDT) HDL 41 mg/dL [facility] Comment: Interpretation: Risk Level Males Decreased >45 mg/dL Average 40-45 mg/dL Increased <40 mg/dL CHOLESTEROL 225 0 - 240 mg/dL [facility] TRIGLYCERIDES 208(H) 30 - 160 mg/dL [facility] LDL 142(H) 50 - 129 mg/dL [facility] Comment: LDL levels in terms of risk for coronary heart disease: <100 mg/dL: Optimal 100-129 mg/dL: Near or above optimal 130-159 mg/dL: Borderline high 160-189 mg/dL: High >190 mg/dL: Very High CARDIAC RISK RATIO 5.5(H) 3.4 - 5.0 [facility] Blood 08/29/2017 8:08 AM EDT 08/29/2017 8:10 AM EDT us Jose Rafael Nicole MD LAB BLOOD ORDERABLES Fin al Result [address] [address] from Last 3 Months or Most Recently Relevant to Health Maintenance [place] [address] [place] [address] [place] [address] [facility] [employer] [facility] [employer] [facility] Care Teams Patient Assessment Coordinator Relationship Specialty Start Date End Date Gavin Dawn DO [address] [place] [address] PCP - General Internal Medicine 10/12/21 Additional Source Comments The information contained in this document represents components of the legal health record. It is not the complete legal health record.[facility]
== END 2025-03-11 09:22 | disposition home or self-care (01) ==
LOC: HO.HMCSH 08:46
PROVIDERS: PCP Internal Medicine; Visit Provider Internal Medicine
DX: Z23 Encounter for immunization (principal)

== ENCOUNTER → 2025-03-11 08:46 | Outpatient (BNVA) | payer BC, SELFPAY | PROVIDERS: PCP Internal Medicine; Visit Provider Internal Medicine | DX: M71.38 Other bursal cyst, other site (principal); Z23 Encounter for immunization | CPT/HCPCS: 90471; 90472; 90656; 90715; 96127 ==

== ENCOUNTER 2025-05-20 13:30 | Outpatient (REF) | payer BC, SELFPAY ==
[2025-05-20 17:03] LABS: PSA,Total (Free>4and<10) 0.51 ng/mL (0.00-4.00)
[2025-05-20 18:44] LABS: Folate 9.3 ng/mL (> or = 4.0); Vitamin B12 269 pg/mL (200-900)
--- OUTSIDE RECORDS SUMMARY | 2025-05-20 22:18 | XMS_ITS | Encounter Summary ---
Author Organization [facility] Address [address] [facility] [address] [place] [address] Phone Care Team Providers Care Culinary Specialist Name Role Phone Gavin Tate MD Primary Care Provider +[phone]- [phone] Gavin Dawn DO Primary Care Provider Reason for Referral * MRI/CAT Scan - Closed Specialty Diagnoses / Procedures Referred By Jeff rivera Referred To Contact Radiology Diagnoses Precordial pain Procedures NC Myocardial Perfusion Stress Single NC Myocardial Perfusion Exercise Multiple Jose Rafael Nicole MD Phone: tel: fax: Referral ID Status Reason Start Date Expiration Date Visits Re quested Visits Authorized [id number] Closed 08/10/2017 08/10/2018 1 1 Encounter Details Date Type Department Care Team (Late st Contact Info) Description 08/29/2017 Ancillary Orders [facility] [address], [address] [place] [address] Jose Rafael Nicole MD [address] [place] [address] Precordial pain Social History Tobacco Use Types [...] pain documented in this encounter Care Teams Culinary Specialist Relationship Specialty Start Date End Date Gavin Tate MD [address] [place] [address] [email or web address] PCP - General Internal Medicine 07/18/17 10/11/21 Gavin Dawn DO [address] [place] [address] PCP - General Internal Medicine 10/12/21 documented as of this encounter Additional Source Comments The information contained in this document represents components of the legal health record. It is not the complete legal health record.[facility]
--- OUTSIDE RECORDS SUMMARY | 2025-05-20 22:18 | XMS_ITS | Encounter Summary ---
Author Organization [facility] Address [address] [facility] [address] [place] [address] Phone Care Team Providers Care Glassware Verifier Name Role Phone Gavin Dawn DO Primary Care Provider + [phone] Encounter Details Date Type Department Care Team (Late st Contact Info) Description 05/23/2023 Procedure Pass [facility], Ct Scan - [address] [address] Social History Tobacco Use Types Packs/Day Years [...] 05/23/2023 11:17 AM Ginger Grider RN * [place] Suicide Severity Rating Scale (Screener/Recent Self-Report) Question [...] on filedocumented in this encounter Care Teams Glassware Verifier Relationship Specialty Start Date End Date Gavin Dawn DO [address] [place] [address] PCP - General Internal Medicine 10/12/21 documented as of this encounter Additional Source Comments The information contained in this document represents components of the legal health record. It is not the complete legal health record.[facility]
--- OUTSIDE RECORDS SUMMARY | 2025-05-20 22:18 | XMS_ITS | Encounter Summary ---
Author Organization [facility] Address [address] [facility] [address] [place] [address] Phone Care Team Providers Care Assistant To The Vice President Name Role Phone Gavin Dawn DO Primary Care Provider + [phone] Encounter Details Date Type Department Care Team (Late st Contact Info) Description 05/23/2023 Procedure Pass [facility], Ct Scan - [address] [address] Social History Tobacco Use Types Packs/Day Years [...] 05/23/2023 11:17 AM Ginger Grider RN * [place] Suicide Severity Rating Scale (Screener/Recent Self-Report) Question [...] on filedocumented in this encounter Care Teams Assistant To The Vice President Relationship Specialty Start Date End Date Gavin Dawn DO [address] [place] [phone] PCP - General Internal Medicine 10/12/21 documented as of this encounter Additional Source Comments The information contained in this document represents components of the legal health record. It is not the complete legal health record.[facility]
== END 2025-05-20 13:31 | disposition home or self-care (01) ==
LOC: HO.LAB 13:30
PROVIDERS: PCP Physician Assistant Medical; Visit Provider Physician Assistant Medical
DX: Z00.00 Encounter for general adult medical examination without abnormal findings (principal); Z12.5 Encounter for screening for malignant neoplasm of prostate
CPT/HCPCS: 36415; 82607; 82746; 84153

== ENCOUNTER 2025-05-21 13:09 | Outpatient (AMB) | payer BC, SELFPAY ==
[2025-05-21 13:06] VITALS: BP 127/81; PULSE 77; RESP 14; TEMP 36.7; O2SAT 97; BMI 28.6
--- NOTE | 2025-05-21 13:06 | A.OFFPC_ITS ---
Vital Signs 05/21/25 13:06 Height 5 ft 8 in Weight 188 lb BMI 28.6 BP 127/81 Blood Pressure Location Rt brachial Position Sitting Respiration 14 Pulse 77 Pulse Source Pulse Oximeter Temp 98.1 F Temp Source Temporal Artery Scan Pulse Oximetry (%) 97 Oxygen Delivery Method Room Air Intake Visit Reasons: 6 month f/u Reed Repairer Required: No Accompanied by: Self / Same As Patient Allergies amoxicillin Allergy (Severe, Verified 05/21/25 13:07) Rash cephalexin (From Keflex) Allergy (Severe, Verified 05/21/25 13:07) Rash ampicillin Allergy (Verified 05/21/25 13:07) Rash Tobacco use date assessed: 11/27/24 Dental Screening Dental Screen Date: 11/27/24 HPI HPI Comments History of Present Illness Details History of Present Illness - The patient is a 59 year old male pres enting for a follow-up visit. - He reports increased urinary urgency b ut denies changes in frequency, duration, or flow, and denies nocturia. - He notes that his PSA level from Celiro blood work was low. - He reports worsening eyesight over the years and tries to avoid driving at night. - His cholesterol was in range on blood work from the beginning of the year. - Current medications include albuterol as needed for asthma, a daily statin for cholesterol, fexofenadine, and another medication for allergies, as well as vitamin D3 in the winter. - He uses the albuterol inhaler very inf requently. - Regarding health maintenance, he is lashawn felton due for a colonoscopy next year in 2026. - He has received a flu shot and a recen t COVID shot. 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 - He has lost about 10 pounds since stop ping work and has been more active, doing projects around the house. - He reports drinking more water in the wintertime. Results - Labs: Recent blood work showed a low P SA level. - Labs: Blood work from the beginning of the year showed cholesterol was in range. [facility] Medical History Vitamin D deficiency Headache Depression Right-sided low back pain without sciatica Coagulopathy, thrombocytopenia, transient, remote, resolved Environmental allergies Herniated lumbar intervertebral disc Hypercholesteremia History of diverticulitis Hx of heartburn Chronic back pain Epigastric hernia Surgical History History of colonoscopy (~10/12/21) History of wisdom tooth extraction History of microdiscectomy History of vasectomy Social History Housing: House Alcohol intake: current Alcohol intake frequency: 3 or more drinks per day Patient Tobacco Use Status: Former Tobacco user service: No Current occupational status: retired Cognitive needs: No Hearing needs: No Vision needs: Yes (rx glasses) Questionnaire PHQ-9 Over the last 2 weeks, how often have you been bothered by any of the following problems? 1. Little interest or pleasure in doing things: not at all 2. Feeling down, depressed, or hopeless: not at all 3. Trouble falling or staying asleep, or sleeping too much: not at all 4. Feeling tired or having little energy: not at all 5. Poor appetite or overeating: not at all 6. Feeling bad about yourself - or that you are a failure or have let yourself or your family down: not at all 7. Trouble concentrating on things, such as reading the newspaper or watching television: not at all 8. Moving or speaking so slowly that other people could have noticed. Or the opposite - being so fidgety or restless that you have been moving around a lot more than usual: not at all 9. Thoughts that you would be better off or of hurting yourself in some way: not at all Total score: 0 Source: Developed by Drs. Gavin Corral, Estela Lopez, Arnel Pimentel and colleagues, with an educational tatyana from [employer] Thrive Questionnaire Date Thrive assessed: 11/27/24 I am a: Patient What is your living situation today?: I have a steady place to live Within the past 12 months, did the food you bought not last and you didn't have the money to get more?: Never true Within the past 12 months, did you worry whether your food would run out before you got money to buy more?: Never true Do you have trouble paying for medicines?: No Do you have trouble getting transportation to medical appointments?: No Do you have trouble paying your heating and electricity bill?: No Do you have trouble taking care of your child, family member or friend?: No Do you have trouble with day-to-day activities such as bathing, preparing meals, shopping, managing finances, etc.?: No Are you currently unemployed and looking for a job?: No Are you interested in more education?: No Please select the resources that you would like help with: None THRIVE Score: 0 AUDIT C Alcohol Use Questionnaire (AUDIT-C) 1. How often do you have a drink containing alcohol?: 4 or more times a week 2. How many drinks containing alcohol do you have on a typical day when you are drinking?: 3 or 4 3. How often do you have six or more drinks on one occasion?: Never Total Score: 5 Score Reviewed/Action Taken: No LUIS FERNANDO-7 AMB Questionnaire LUIS FERNANDO-7 Date LUIS FERNANDO - 7 assessed: 11/27/24 Feeling nervous, anxious, or on edge: 0 = Not at all Not being able to stop or control worryin = Not at all Worrying too much about different things: 0 = Not at all Trouble relaxin = Not at all Being so restless that it is hard to sit still: 0 = Not at all Becoming easily annoyed or irritable: 0 = Not at all Feeling afraid as if something awful might happen: 0 = Not at all Total LUIS FERNANDO-7 score (0-4 normal; 5-9 mild; 10-14 moderate; 15-21 severe): 0 Source: Developed by Drs. Gavin Corral, Estela Lopez, Arnel Pimentel and colleagues, with an educational tatyana from [employer] Review of Systems Narrative Review of Systems - General: Denies health concerns, reports feeling pretty good. - Eyes: Reports eyesight has gotten worse over the years. - Genitourinary: Reports increased urinary urgency. Denies change in urinary frequency, duration, flow, or nocturia. Physical exam (Primary Care) Vital Signs: Last Vital Signs Temp 98.1 F 05/21/25 13:06 Pulse 77 05/21/25 13:06 Resp 14 05/21/25 13:06 BP 127/81 05/21/25 13:06 Pulse Ox 97 05/21/25 13:06 Oxygen Delivery Method Room Air 05/21/25 13:06 BMI result Body Mass Index 28.6 Tobacco/Smoking Status: Tobacco use Status Tobacco use date assessed 11/27/24 05/21/25 13:08 Patient Tobacco Use Status Former Tobacco user 05/21/25 13:08 PHQ-9: PHQ-9 Score PHQ-9: Total score 0 05/21/25 13:16 Thrive Assessment: Date of Thrive Assessment Date Thrive assessed 11/27/24 05/21/25 13:08 Narrative Physical Exam General: Appearance normal, both eyes and all related structures Nutritional Appearance: Well nourished, has lost about 10 pounds since stopping work Orientation/consciousness: Patient oriented x3 Limitations: Avoids driving at night due to worsening eyesight Head: Normal to inspection Neck: Normal visual inspection Chest: Normal palpation of entire chest wall Respiratory: Normal respiratory effort Neurology: Patient oriented x3 Office Procedures Flu Questionnaire Does the patient have a severe egg allergy?: No Does the patient have severe life threatening allergies?: No Does the patient have a fever or illness today?: No Has the patient ever had Guillain-[place] Syndrome?: No Has the patient ever had any past reaction to a flu shot?: No Immunizations Fluarix [id number] (PF) 45 mcg (15 mcg x 3)/0.5 mL IM syringe Performing Provider: Neal Lanza MD [facility] Documented (not given) by: ALYSON Arriola on 05/21/25 13:16 Reason Not Given: Received Previously Coding Level of Care Code Est Pt Level 4 (47632) Complex visit Add On G2211 Diagnoses Hypercholesteremia E78.00 Assessment & Plan Assessment & Plan (1) Hypercholesteremia: Code(s): E78.00 - Pure hypercholesterolemia, unspecified Category: Medical Plan Plan - The patient's report of urinary urgency without other symptoms is noted as a possible age-related change, which does not require intervention at this time as long as PSA levels are not high and he is not having trouble urinating. - The patient's cholesterol will continue to be monitored with blood work. - He will continue his current medications, including a daily statin, fexofenadine, and albuterol as needed. - An order for a fasting, detailed blood work panel will be placed, as the patient wishes to have it done every six months. - The patient is advised to continue exercising and eating healthy food. - A follow-up is scheduled in six months. Discussion Notes I reviewed the patient's recent PSA result, which was low. I explained that age- related changes to the prostate are common in men over 50 and are not a concern as long as PSA numbers are not high and there are no urination difficulties. We reviewed his current medications and confirmed he does not need refills at this time. I advised him to continue with healthy eating and exercise. The patient requested to have a detailed blood panel every six months for his comfort, and I agreed to place the order for fasting lab work. I will call him with the results once the blood work is completed, and I will see him for a follow-up in six months. Patient Instructions - Continue taking your current medications as prescribed. - Please go to the lab to get your fasting blood work done. This is a more complete panel than the recent PSA test you had. - Continue to exercise and eat healthy foods. - I will call you with your blood work results after they are completed. - Your next follow-up appointment is in six months. Orders: Orders Influenza [id number] Immunization Today Z23 - Encounter for immunization Lipid Panel Today E78.00 - Pure hypercholesterolemia, unspecified Liver Panel Today E78.00 - Pure hypercholesterolemia, unspecified Basic Metabolic Panel Today E78.00 - Pure hypercholesterolemia, unspecified UA and rflx microscopic Today E78.00 - Pure hypercholesterolemia, unspecified Complete Blood Count no Diff Today E78.00 - Pure hypercholesterolemia, unspecified Thyroid Stimulating Hormone Today E78.00 - Pure hypercholesterolemia, unspecified
--- OUTSIDE RECORDS SUMMARY | 2025-05-21 17:29 | XMS_ITS | Encounter Summary ---
Author Organization [facility] Address [address] [facility] [address] [place] [address] Phone Care Team Providers Care Quantitative Manager Name Role Phone Gavin Dawn DO Primary Care Provider + [phone] Encounter Details Date Type Department Care Team (Late st Contact Info) Description 05/23/2023 Procedure Pass [facility], Ct Scan - [address] [address] Social History Tobacco Use Types Packs/Day Years [...] 05/23/2023 11:17 AM Ginger Grider RN * [place] Suicide Severity Rating Scale (Screener/Recent Self-Report) Question [...] on filedocumented in this encounter Care Teams Quantitative Manager Relationship Specialty Start Date End Date Gavin Dawn DO [address] [place] [id number] PCP - General Internal Medicine 10/12/21 documented as of this encounter Additional Source Comments The information contained in this document represents components of the legal health record. It is not the complete legal health record.[facility]
--- OUTSIDE RECORDS SUMMARY | 2025-05-21 17:29 | XMS_ITS | Encounter Summary ---
Author Organization [facility] Address [address] [facility] [address] [place] [phone] Phone Care Team Providers Care Process Expert Name Role Phone Gavin Dawn DO Primary Care Provider + [phone] Encounter Details Date Type Department Care Team (Late st Contact Info) Description 05/23/2023 Procedure Pass [facility], Ct Scan - [address] [address] Social History Tobacco Use Types Packs/Day Years [...] 05/23/2023 11:17 AM Ginger Grider RN * [place] Suicide Severity Rating Scale (Screener/Recent Self-Report) Question [...] on filedocumented in this encounter Care Teams Process Expert Relationship Specialty Start Date End Date Gavin Dawn DO [address] [place] [address] PCP - General Internal Medicine 10/12/21 documented as of this encounter Additional Source Comments The information contained in this document represents components of the legal health record. It is not the complete legal health record.[facility]
--- OUTSIDE RECORDS SUMMARY | 2025-05-21 17:29 | XMS_ITS | Encounter Summary ---
Author Organization [facility] Address [address] [facility] [address] [place] [address] Phone Care Team Providers Care Can Closing Machine Operator Name Role Phone Gavin Tate MD Primary Care Provider [phone]- [phone] Gavin Dawn DO Primary Care Provider Reason for Referral * MRI/CAT Scan - Closed Specialty Diagnoses / Procedures Referred By Jeff rivera Referred To Contact Radiology Diagnoses Precordial pain Procedures NC Myocardial Perfusion Stress Single NC Myocardial Perfusion Exercise Multiple Jose Rafael Nicole MD Phone: tel: fax: Referral ID Status Reason Start Date Expiration Date Visits Re quested Visits Authorized [id number] Closed 08/10/2017 08/10/2018 1 1 Encounter Details Date Type Department Care Team (Late st Contact Info) Description 08/29/2017 Ancillary Orders [facility] [address], [address] [place] [address] Jose Rafael Nicole MD [address] [place] [address] Precordial pain Social History Tobacco Use Types [...] pain documented in this encounter Care Teams Can Closing Machine Operator Relationship Specialty Start Date End Date Gavin Tate MD [address] [place] [address] [email or web address] PCP - General Internal Medicine 07/18/17 10/11/21 Gavin Dawn DO [address] [place] [address] PCP - General Internal Medicine 10/12/21 documented as of this encounter Additional Source Comments The information contained in this document represents components of the legal health record. It is not the complete legal health record.[facility]
--- OUTSIDE RECORDS SUMMARY | 2025-05-21 17:29 | XMS_ITS | Clinical Summary ---
Author Organization [facility] Address [address] [place] [phone] Phone Care Team Providers Care Environmental Communications Specialist Name Role Phone Gavin Dawn DO Primary Care Provider [phone] Allergies Active Allergy Reactions Criticality Noted Date [...] you interested in more education? Not on vaenssa e 10/08/2022 Are you concerned about learning? [...] PANEL 08/29/2022 08/29/2017 INFLUENZA VACCINE (#1) 2025 , 03/24/2023, 03/18/2022, Additional history exists COVID-19 VACCINE ( season) 2025 03/08/2024, 03/24/2023, 06/24/2022, Additional history exists SCREENING FOR DIABETES 05/23/2026 05/23/2023 RSV VACCINE (1 - 1-dose 75+ series) 2040 ZOSTER VACCINES Completed 06/24/2022, 03/18/2022 HEPATITIS A VACCINES Aged Out No long [...] (08/29/2017 8:08 AM EDT) HDL 41 mg/dL [facility] Comment: Interpretation: Risk Level Males Decreased >45 mg/dL Average 40-45 mg/dL Increased <40 mg/dL CHOLESTEROL 225 0 - 240 mg/dL [facility] TRIGLYCERIDES 208(H) 30 - 160 mg/dL [facility] LDL 142(H) 50 - 129 mg/dL [facility] Comment: LDL levels in terms of risk for coronary heart disease: <100 mg/dL: Optimal 100-129 mg/dL: Near or above optimal 130-159 mg/dL: Borderline high 160-189 mg/dL: High >190 mg/dL: Very High CARDIAC RISK RATIO 5.5(H) 3.4 - 5.0 C [facility] Blood 08/29/2017 8:08 AM EDT 08/29/2017 8:10 AM EDT us Jose Rafael Nicole MD LAB BLOOD BKR ORDERABLES Final Result [facility] [address] [place] [address] from Last 3 Months or Most Recently Relevant to Health Maintenance Insurance iWarda iWarda i[employer]arda [facility] Care Teams Environmental Communications Specialist Relationship Specialty Start Date End Date Gavin Dawn DO [address] [place] [id number] PCP - General Internal Medicine 10/12/21 Additional Source Comments The information contained in this document represents components of the legal health record. It is not the complete legal health record.[facility]
== END 2025-05-21 13:31 | disposition home or self-care (01) ==
LOC: HO.HMCSH 13:09
PROVIDERS: PCP Internal Medicine; Visit Provider Internal Medicine
DX: Z23 Encounter for immunization (principal); E78.00 Pure hypercholesterolemia, unspecified

== ENCOUNTER → 2025-05-21 13:09 | Outpatient (BNVA) | payer BC, SELFPAY | PROVIDERS: PCP Internal Medicine; Visit Provider Internal Medicine | DX: Z13.31 Encounter for screening for depression (principal) | CPT/HCPCS: 90471; 96127 ==